=== PATIENT | female | born 1975 | race Caucasian/White ===

== ENCOUNTER 2020-04-10 15:14 | Outpatient (CLI) | payer OTHER, SELFPAY ==
[2020-04-19 04:52] LABS: Quantiferon TB Plus, 1T NEGATIVE
[2020-04-19 04:53] LABS: NIL 0.02; TB1-NIL 0.01
[2020-04-19 04:59] LABS: TB2-NIL 0.01
== END 2020-04-10 15:15 | disposition home or self-care (01) ==
LOC: CHSLAB 15:17
PROVIDERS: PCP Family Medicine; Visit Provider Family Medicine
DX: Z11.1 Encounter for screening for respiratory tuberculosis (principal)
CPT/HCPCS: 36415; 86480

== ENCOUNTER 2020-09-12 12:39 | Outpatient (CLI) | payer BC, SELFPAY ==
--- NOTE | ~2020-09-12 | MM_ITS ---
EXAMINATION: MM scrn carissa implant BI w briseyda HISTORY: Screening mammogram TECHNIQUE: Craniocaudal and mediolateral oblique 3-D tomosynthesis images with implant displacement a nd synthetic 2-D images were generated. Craniocaudal and mediolateral oblique views of the breasts wi thout implant displacement were obtained using full field digital mammography. CAD analysis was submi tted and interpreted. COMPARISON: 02/28/2018 right diagnostic digital mammogram and right breast ultrasound examination 02/09/2018 bilateral digital screening mammogram BREAST PARENCHYMAL COMPOSITION: The breasts are extremely dense, which lowers the sensitivity of mamm ography. FINDINGS: Status post bilateral augmentation mammoplasty. There is no evidence of suspicious mass, ca lcification, or architectural distortion to suggest malignancy in either breast. There has been no del castillo spicious interval change. IMPRESSION: 1. No mammographic evidence of malignancy. 2. Recommend routine screening mammography in one year. BI-RADS Category 1: Negative Reviewed, dictated and finalized at location A. CHECKER
== END 2020-09-12 12:40 | disposition home or self-care (01) ==
LOC: CHSIMG 12:41
PROVIDERS: PCP Family Medicine; Visit Provider Student in an Organized Health Care Education/Training Program
DX: Z12.31 Encounter for screening mammogram for malignant neoplasm of breast (principal)
CPT/HCPCS: 77063; 77067

== ENCOUNTER → 2020-10-07 04:17 | Outpatient (CLI) | payer BC, SELFPAY ==
[2020-10-07 19:04] LABS: SARS-CoV-2 RNA PCR Negative
== END ==
PROVIDERS: PCP Family Medicine; Visit Provider Student in an Organized Health Care Education/Training Program
DX: Z01.812 Encounter for preprocedural laboratory examination (principal); Z20.822 Contact with and (suspected) exposure to COVID-19
CPT/HCPCS: C9803; U0003; U0005

== ENCOUNTER 2020-10-10 01:20 | Day surgery (SDC) | payer BC, SELFPAY ==
[2020-09-25 14:29] VITALS: BMI 25.4
--- NOTE | 2020-10-09 09:23 | PM.IMHP ---
H&P: HPI History of Present Illness Date/Time: 10/09/20 09:23 The patient is a 45yo nulligravid woman with a history of JUAN CARLOS 2 who presents for a scheduled LEEP. Patient had a routine pap smear in 08/2020 that showed LGSIL. A colposcopy was performed in 09/2020 and cervical biopsy confirmed JUAN CARLOS 2. Discussion had with patient regarding management options and decision was made proceed with LEEP procedure. Patient reports feeling well today without complaints. Chief Complaint: high grade cervical dysplasia Review of Systems Review of Systems: All systems reviewed & are unremarkable except as noted in HPI and below Constitutional: Constitutional: Reports as per HPI, Reports no additional constitutional complaints, Denies chills, Denies fever(s), Denies headache(s) and Denies night sweats Eyes: Eyes: Reports as per HPI and Reports no additional eye complaints ENT: Reports system reviewed and no additional complaints, except as documented, Reports as per HPI, Reports Normal hearing present and Denies headache(s) Cardiovascular: Cardiovascular: Reports as per HPI, Reports no additional cardiovascular complaints, Denies chest pain and Denies dyspnea Respiratory: Respiratory: Reports as per HPI, Reports no additional respiratory complaints, Denies cough and Denies dyspnea Gastrointestinal: Gastrointestinal: Reports as per HPI, Reports no additional gastrointestinal complaints, Denies abdominal pain, Denies change in bowel habits, Denies change in stool character, Denies nausea and Denies vomiting Genitourinary: Genitourinary: Reports no additional female genitourinary complaints, Reports as per HPI, Denies abnormal vaginal bleeding, Denies genital lesions, Denies hot flashes, Denies dyspareunia, Denies pelvic pain, Denies sexual dysfunction, Denies urinary incontinence, Denies vaginal discharge, Denies vaginal dryness and Denies vaginal odor Musculoskeletal: Musculoskeletal: Reports no additional musculoskeletal complaints and Reports as per HPI Integumentary/Breasts: Skin/Breast: Reports system reviewed and no additional complaints, except as docu, Reports as per HPI, Denies breast pain and Denies nipple discharge Neurologic: Reports system reviewed and no additional complaints, except as documented, Reports as per HPI, Reports Normal hearing present and Denies headache(s) Psychiatric: Psychiatric: Reports no additional psychiatric complaints, Reports as per HPI, Denies anxiety and Denies depression Endocrine: Endocrine: Reports no additional endocrine complaints and Reports as per HPI Hematologic/Lymphatic: Hematologic/Lymphatic: Reports no additional hematologic/lymphatic complaints and Reports as per HPI Allergic/Immunologic: Allergic/Immunologic: Reports no additional allergic/immunologic complaints and Reports as per HPI PMFSH Past Medical History Medical History Depression with anxiety HGSIL (high grade squamous intraepithelial dysplasia) LGSIL (low grade squamous intraepithelial dysplasia) Surgical History Surgical History History of breast augmentation Previous section x 3 Family History Family History Sibling Family history of cardiovascular disease Mother Cerebrovascular accident Social History Social History Smoking status: Never smoker Second hand tobacco smoke exposure: No Alcohol intake: current Drinks per week: 2 Substance use: never Substance use type: does not use Spiritual care concerns: No Meds Home Medications and Allergies Home Medications Medication Instructions Recorded Confirmed Type bupropion HCl 300 mg 24 hr tablet, 300 mg PO DAILY 08/07/19 09/25/20 History extended release spironolactone 100 mg tablet 100 mg PO DAILY 08/07/19 09/25/20 History multivitamin 1 tablet
[2020-10-10 08:42] VITALS: BP 115/82; PULSE 81; RESP 16; TEMP 36.8; O2SAT 100
[2020-10-10] MEDS: ACETAMINOPHEN 500 MG TABLET 1000 MG PO (08:53)
--- NOTE | 2020-10-10 08:53 | WPDANESEPPF ---
Anes - Initial Pre Proc Eval Procedure: Operation Date: 10/10/20 10:30 Proposed Procedures p Loop Electrical Excision Procedure - Fernanda Whittington MD Date/Time: 10/10/20 08:53 Surgeon: Fernanda Whittington MD Pre Op Diagnosis: JUAN CARLOS II Patient Data Age: 45 Gender: F Height: 5 ft 6 in Weight: 71.6 kg Allergies Allergy/AdvReac Type Severity Reaction Status Date / Time cephalexin Allergy Unknown Hives Verified 10/10/20 08:50 Home Medications Medication Instructions Recorded Confirmed Type bupropion HCl 300 mg 24 hr tablet, 450 mg PO DAILY 08/07/19 10/10/20 History extended release spironolactone 100 mg tablet 100 mg PO DAILY 08/07/19 10/10/20 History multivitamin 1 tablet PO DAILY 08/29/20 10/10/20 History omega-3 fatty acids 1,000 mg 1,000 mg PO DAILY 08/29/20 10/10/20 History capsule vitamin B complex 1 tablet PO DAILY 08/29/20 10/10/20 History calcium carbonate 600 mg (1,500 1 cap PO DAILY 09/30/20 10/10/20 History mg)-vitamin D3 500 unit capsule Patient hx anesthesia problems: post op nausea/vomiting Family hx anesthesia problems: none PMFSH Past Medical History Medical History Depression with anxiety HGSIL (high grade squamous intraepithelial dysplasia) LGSIL (low grade squamous intraepithelial dysplasia) Surgical History Surgical History History of breast augmentation Previous section x 3 Family History Family History Sibling Family history of cardiovascular disease Mother Cerebrovascular accident Social History Social History Smoking status: Never smoker Second hand tobacco smoke exposure: No Alcohol intake: current Drinks per week: 2 Substance use: never Substance use type: does not use Living arrangements: alone Spiritual care concerns: No Anes - Eval Final PreProcedure Day of Procedure 10/10/20 08:53 Patient weight: normal Heart: regular rate and rhythm Lungs: clear to auscultation Airway: Mallampati scale class II Neurological: alert and oriented Last oral intake: >/= 8 hours ASA classification: II Emergent: no Anesthetic plan: proceed Anesthesia type and monitoring: general GIVS and standard monitoring Informed Consent: The patient's anesthetic plan and its attendant risks and benefits were discussed with the patient/family/POA. Questions were solicited and answers provided to the satisfaction of the patient/family/POA.
[2020-10-10] MEDS: LACTATED RINGERS 1,000 ML 30 ML IV CONT (09:06)
--- NOTE | 2020-10-10 09:08 | WPDHPUPDATE1 ---
History and Physical Update Update Date/Time: 10/10/20 09:08 History and Physical has been reviewed, including an updated exam of the patient. There are NO changes in the patient's condition. Risks, benefits, and alternatives have been discussed and questions answered. Patient agrees to proceed with procedure.
[2020-10-10] MEDS: LIDOCAINE HCL 1% LOCAL INJ 20 ML VIAL 50 ML INFILTRATE (09:50)
[2020-10-10 10:07] VITALS: BP 110/52; PULSE 82; RESP 14; O2SAT 100
--- NOTE | 2020-10-10 10:15 | PM.PROC ---
Procedure Note - Detailed Date of procedure: 10/10/20 Pre-op diagnosis: JUAN CARLOS II Post-op diagnosis: same Procedure performed: Loop electrosurgical excision procedure Description of procedure: The patient was taken to the operating room where she self-transferred to the operating room table. She was placed in dorsal supine position. Anesthesia was administered and found to be adequate. The patient was repositioned in dorsal lithotomy position and prepped and draped in the usual sterile fashion. A red rubber catheter was used to drain the bladder of 50cc concentrated urine. A coated bivalve speculum was inserted into the vagina and suction tubing was connected to the speculum. The cervix was well visualized. A paracervical block was performed with 1% lidocaine. 5 cc of lidocaine was administered on both sides for a total of 10 cc. Lugol's solution was applied across the entire surface of the cervix. A narrow area of non-uptake was noted circumferentially around the cervix. A medium-size loop was selected and connected to the electrical generator. This loop was used to excise a portion of the anterior surface of the cervix, including the cervical os. A single pass was made. The specimen was removed and set aside. The anterior portion of the cervix was tagged at 12:00 with a suture. An endocervical curettage was performed. Rollerball cautery was used to cauterize the entire excision site and margins of the excision bed. Excellent hemostasis was noted. The procedure was deemed complete. The vagina was dried and the speculum was removed. Specimen were prepared to be sent to pathology for analysis. The patient was cleansed and dried. She was taken out of the dorsal lithotomy position and awakened from anesthesia without difficulty. She was transported to the recovery room in stable condition. All sponge and instrument counts were correct at the end of the procedure. Anesthesia: MAC Surgeon: Fernanda Whittington MD Cooler Room Worker: None Estimated blood loss (mL): 5 IV fluids (mL): 500 Urine output (mL): 50 Drains: No Packing: No Pathology: yes (anterior portion of cervix, tagged at 12:00, endocervical curettage) Complications: No immediate complications Condition: stable Disposition: same day Findings: narrow area of uptake noted around cervical os
[2020-10-10 10:30] VITALS: BP 111/49; PULSE 79; RESP 16; O2SAT 100
[2020-10-10 10:57] VITALS: BP 103/73; PULSE 84; RESP 16; O2SAT 100
== END 2020-10-10 10:58 | disposition home or self-care (01) ==
PROVIDERS: PCP Family Medicine; Visit Provider Student in an Organized Health Care Education/Training Program
PROC: 0UBC7ZZ Excision of Cervix, Via Natural or Artificial Opening (ICD-10-PCS; CPT 57522; principal; 2020-10-10 10:30)
DX: N87.1 Moderate cervical dysplasia (principal); F41.8 Other specified anxiety disorders
CPT/HCPCS: 57522; 88305; A9270; C9803; J2250; J2405; J2704; J3010; J7120; U0003; U0005

== ENCOUNTER 2020-10-22 11:59 | Outpatient (CLI) | payer BC, SELFPAY ==
[2020-10-22 12:51] LABS: Hematocrit 25.4 % (37.0-47.0); Hemoglobin 8.5 g/dL (12.0-15.0); Mean Corpuscular HGB Conc 33.5 g/dl (32-36); Mean Corpuscular Hemoglobin 30.9 pg (26-34); Mean Corpuscular Volume 92.4 fl (80-100); Mean Platelet Volume 9.9 fl (7.4-10.4); Platelet Count Result 1059 k/mm3 (150-375); Red Blood Count 2.75 M/mm3 (4.2-5.4); Red Cell Distribution Width 18.9 % (11.5-14.5)
[2020-10-22 13:30] LABS: White Blood Count 197.5 K/mm3 (4.5-10.0)
[2020-10-22 14:22] LABS: Eosinophils Absolute Manual 19.75 K/mm3 (0.02-0.5); Eosinophils Percent Manual 10 % (0-4); Hypochromasia 1+ (NORMAL); Metamyelocytes Percent 12 %; Monocytes Absolute Manual 5.92 K/mm3 (0.1-0.90); Monocytes Percent Manual 3 % (3-9); Myelocytes Percent 12 %; Neutrophils Percent Manual 47 % (46-73); Platelet Estimate Increased (Adequate); Promyelocytes Percent 16 %; Total Cells Counted 100
== END 2020-10-22 12:00 | disposition home or self-care (01) ==
PROVIDERS: PCP Family Medicine; Visit Provider Student in an Organized Health Care Education/Training Program
DX: R42 Dizziness and giddiness (principal)
CPT/HCPCS: 36415; 85025; 85027; 88108

== ENCOUNTER 2020-11-04 08:13 | Outpatient (CLI) | payer BC, SELFPAY ==
[2020-11-04 08:57] LABS: Hematocrit 32.9 % (35.0-49.0); Hemoglobin 10.6 g/dL (12.0-15.0); Mean Corpuscular HGB Conc 32.2 g/dL (32.0-36.0); Mean Corpuscular Hemoglobin 29.5 pg (27.0-31.0); Mean Corpuscular Volume 91.6 fL (78.0-102.0); Mean Platelet Volume 9.8 fl (9.2-11.8); Platelet Count Result 1086 K/mm3 (150-420); Red Blood Count 3.59 M/mm3 (4.20-5.40); Red Cell Distribution Width 19.2 % (11.6-14.4)
[2020-11-04 09:13] LABS: Alanine Aminotransferase 20 U/L (14-59); Albumin Level 3.8 g/dL (3.4-5.0); Alkaline Phosphatase 59 U/L (46-116); Anion Gap 6 mmol/L (8-16); Aspartate Amino Transferase 16 U/L (15-37); Bilirubin,Total 0.6 mg/dL (0.00-1.00); Blood Urea Nitrogen 22 mg/dL (7-18); Calcium 9.5 mg/dL (8.5-10.1); Carbon Dioxide 31 mmol/L (21-32); Chloride 100 mmol/L (98-108); Estimated Glomerular Filt Rate 55; Glucose 89 mg/dL (70-99); Osmolality Calculated 286 mOsm/kg (285-295); Potassium 4.7 mmol/L (3.5-5.1); Sodium 137 mmol/L (136-145); Total Protein 7.1 g/dL (6.4-8.2)
[2020-11-04 09:17] LABS: White Blood Count 99.2 K/mm3 (4.8-10.8)
[2020-11-04 09:34] LABS: Band Neutrophils Percent 9 % (0-6); Eosinophils Absolute Manual 6.94 K/mm3 (0.02-0.5); Eosinophils Percent Manual 7 % (1-6); Lymphocytes Absolute Manual 10.91 K/mm3 (1.1-4.5); Lymphocytes Percent Manual 11 % (18-44); Monocytes Absolute Manual 4.96 K/mm3 (0.1-0.90); Monocytes Percent Manual 5 % (3-9); Neutrophils Absolute Manual 65.47 K/mm3 (1.7-7.2); Neutrophils Percent Manual 57 % (46-73); Total Cells Counted 100
[2020-11-04 09:35] LABS: Basophils Percent Manual 0 % (0-1); Metamyelocytes Percent 9 %; Myelocytes Percent 3 %; Nucleated Red Blood Cells 3 %; Platelet Estimate Increased (Adequate)
== END 2020-11-04 08:14 | disposition home or self-care (01) ==
LOC: CHSLAB 08:17
PROVIDERS: PCP Family Medicine
DX: D72.829 Elevated white blood cell count, unspecified (principal)
CPT/HCPCS: 36415; 80053; 85025

== ENCOUNTER 2020-11-11 15:07 | Outpatient (CLI) | payer BC, SELFPAY ==
--- NOTE | 2020-11-11 15:21 | ECG_ITS ---
Measurements Intervals [place] Rate: 72 P: 76 PA: 137 QRS: 81 QRSD: 82 T: 65 QT: 385 QTc: 422 Interpretive Statements SINUS RHYTHM POSSIBLE LEFT ATRIAL ENLARGEMENT INCOMPLETE RIGHT BUNDLE BRANCH BLOCK BORDERLINE ECG Electronically Signed On 11-11-2020 17:56:58 CDT by Niall Hutchinson D.O.
== END 2020-11-11 15:08 | disposition home or self-care (01) ==
LOC: CHSCARD 15:12
PROVIDERS: PCP Family Medicine
DX: C92.10 Chronic myeloid leukemia, BCR/ABL-positive, not having achieved remission (principal)
CPT/HCPCS: 93005

== ENCOUNTER 2020-11-24 12:51 | Outpatient (CLI) | payer BC, SELFPAY ==
[2020-11-24 13:03] LABS: Basophils Absolute Auto 0.11 K/mm3 (0.00-0.10); Basophils Percent Auto 2.7 % (0.0-1.0); Eosinophils Absolute Auto 0.09 K/mm3 (0.02-0.50); Eosinophils Percent Auto 2.2 % (1.0-6.0); Hematocrit 35.1 % (35.0-49.0); Hemoglobin 11.6 g/dL (12.0-15.0); Immature Granulocyte Absolute 0.03 K/mm3 (0.00-0.00); Immature Granulocyte Percent A 0.7 % (0.0-0.0); Lymphocytes Absolute Auto 1.78 K/mm3 (1.10-4.50); Lymphocytes Percent Auto 43.8 % (18.0-42.0); Mean Corpuscular Hemoglobin 29.7 pg (27.0-31.0); Mean Corpuscular Volume 89.8 fL (78.0-102.0); Mean Platelet Volume 10.2 fl (9.2-11.8); Monocytes Absolute Auto 0.18 K/mm3 (0.10-0.90); Monocytes Percent Auto 4.4 % (2.0-11.0); Neutrophils Absolute Auto 1.9 K/mm3 (1.7-7.2); Neutrophils Percent Auto 46.2 % (50.0-70.0); Platelet Count Result 244 K/mm3 (150-420); Red Blood Count 3.91 M/mm3 (4.20-5.40); Red Cell Distribution Width 18.2 % (11.6-14.4); White Blood Count 4.1 K/mm3 (4.8-10.8)
[2020-11-24 14:14] LABS: Alanine Aminotransferase 27 U/L (14-59); Albumin Level 4.4 g/dL (3.4-5.0); Alkaline Phosphatase 53 U/L (46-116); Anion Gap 9 mmol/L (8-16); Aspartate Amino Transferase 23 U/L (15-37); Bilirubin,Total 1.4 mg/dL (0.00-1.00); Blood Urea Nitrogen 11 mg/dL (7-18); Calcium 9.1 mg/dL (8.5-10.1); Carbon Dioxide 29 mmol/L (21-32); Chloride 100 mmol/L (98-108); Estimated Glomerular Filt Rate 49; Glucose 89 mg/dL (70-99); Lactate Dehydrogenase 187 U/L (81-234); Osmolality Calculated 284 mOsm/kg (285-295); Potassium 4.1 mmol/L (3.5-5.1); Sodium 138 mmol/L (136-145); Total Protein 6.9 g/dL (6.4-8.2); Uric Acid 2.4 mg/dL (2.6-6.0)
== END 2020-11-24 12:52 | disposition home or self-care (01) ==
PROVIDERS: PCP Family Medicine
DX: C92.10 Chronic myeloid leukemia, BCR/ABL-positive, not having achieved remission (principal)
CPT/HCPCS: 36415; 80053; 83615; 84550; 85025

== ENCOUNTER 2021-02-21 12:36 | Outpatient (CLI) | payer BC, SELFPAY ==
[2021-02-21 12:50] LABS: Hemoglobin 13.2 g/dL (12.0-15.0); Mean Corpuscular HGB Conc 33.8 g/dL (32.0-36.0); Mean Corpuscular Hemoglobin 30.1 pg (27.0-31.0); Mean Platelet Volume 7.9 fl (9.2-11.8); Platelet Count Result 131 K/mm3 (150-420); Red Blood Count 4.38 M/mm3 (4.20-5.40); Red Cell Distribution Width 17.2 % (11.6-14.4); White Blood Count 4.3 K/mm3 (4.8-10.8)
[2021-02-21 13:10] LABS: Band Neutrophils Percent 0 % (0-6); Eosinophils Absolute Manual 0.04 K/mm3 (0.02-0.5); Eosinophils Percent Manual 1 % (1-6); Lymphocytes Absolute Manual 2.66 K/mm3 (1.1-4.5); Lymphocytes Percent Manual 62 % (18-44); Monocytes Absolute Manual 0.21 K/mm3 (0.1-0.90); Monocytes Percent Manual 5 % (3-9); Neutrophils Absolute Manual 1.37 K/mm3 (1.7-7.2); Neutrophils Percent Manual 32 % (46-73); Platelet Estimate Adequate (Adequate); Total Cells Counted 100
[2021-02-21 13:29] LABS: Alanine Aminotransferase 39 U/L (14-59); Albumin Level 4.2 g/dL (3.4-5.0); Alkaline Phosphatase 40 U/L (46-116); Anion Gap 11 mmol/L (8-16); Aspartate Amino Transferase 21 U/L (15-37); Bilirubin,Total 1.8 mg/dL (0.00-1.00); Blood Urea Nitrogen 15 mg/dL (7-18); Calcium 8.6 mg/dL (8.5-10.1); Carbon Dioxide 28 mmol/L (21-32); Chloride 103 mmol/L (98-108); Estimated Glomerular Filt Rate 50; Glucose 97 mg/dL (70-99); Lactate Dehydrogenase 141 U/L (81-234); Osmolality Calculated 294 mOsm/kg (285-295); Potassium 4.1 mmol/L (3.5-5.1); Sodium 142 mmol/L (136-145); Total Protein 6.8 g/dL (6.4-8.2); Uric Acid 3.2 mg/dL (2.6-6.0)
== END 2021-02-21 12:37 | disposition home or self-care (01) ==
LOC: CHSLAB 12:40
PROVIDERS: PCP Hospitalist
DX: C92.10 Chronic myeloid leukemia, BCR/ABL-positive, not having achieved remission (principal)
CPT/HCPCS: 36415; 80053; 83615; 84550; 85025

== ENCOUNTER 2021-04-01 14:10 | Outpatient (CLI) | payer BC, SELFPAY ==
--- NOTE | 2021-04-01 14:27 | ECG_ITS ---
Measurements Intervals [place] Rate: 79 P: 76 OR: 137 QRS: 84 QRSD: 85 T: 67 QT: 378 QTc: 435 Interpretive Statements SINUS RHYTHM INCOMPLETE RIGHT BUNDLE BRANCH BLOCK BORDERLINE ECG Electronically Signed On 04-01-2021 15:05:40 CDT by Niall Hutchinson D.O.
== END 2021-04-01 14:11 | disposition home or self-care (01) ==
LOC: CHSCARD 14:14
DX: C92.10 Chronic myeloid leukemia, BCR/ABL-positive, not having achieved remission (principal)
CPT/HCPCS: 93005

== ENCOUNTER 2021-04-14 13:19 | Outpatient (CLI) | payer BC, SELFPAY ==
--- NOTE | 2021-04-14 13:30 | ECG_ITS ---
Measurements Intervals [place] Rate: 62 P: 70 ND: 136 QRS: 86 QRSD: 82 T: 74 QT: 399 QTc: 408 Interpretive Statements SINUS RHYTHM INCOMPLETE RIGHT BUNDLE BRANCH BLOCK BORDERLINE ECG Electronically Signed On 04-14-2021 13:35:21 CDT by Niall Hutchinson D.O.
== END 2021-04-14 13:20 | disposition home or self-care (01) ==
LOC: CHSCARD 13:22
PROVIDERS: PCP Hospitalist
DX: C92.10 Chronic myeloid leukemia, BCR/ABL-positive, not having achieved remission (principal)
CPT/HCPCS: 93005

== ENCOUNTER 2021-05-05 13:23 | Outpatient (CLI) | payer BC, SELFPAY ==
[2021-05-05 13:37] LABS: Hematocrit 39.1 % (35.0-49.0); Hemoglobin 13.9 g/dL (12.0-15.0); Mean Corpuscular HGB Conc 35.5 g/dL (32.0-36.0); Mean Corpuscular Hemoglobin 34.2 pg (27.0-31.0); Mean Corpuscular Volume 96.1 fL (78.0-102.0); Mean Platelet Volume 8.2 fl (9.2-11.8); Platelet Count Result 128 K/mm3 (150-420); Red Blood Count 4.07 M/mm3 (4.20-5.40); White Blood Count 3.8 K/mm3 (4.8-10.8)
[2021-05-05 14:22] LABS: Alanine Aminotransferase 91 U/L (14-59); Alkaline Phosphatase 40 U/L (46-116); Anion Gap 8 mmol/L (8-16); Aspartate Amino Transferase 36 U/L (15-37); Bilirubin,Total 1.8 mg/dL (0.00-1.00); Blood Urea Nitrogen 13 mg/dL (7-18); Calcium 8.6 mg/dL (8.5-10.1); Carbon Dioxide 30 mmol/L (21-32); Chloride 103 mmol/L (98-108); Estimated Glomerular Filt Rate 58; Glucose 63 mg/dL (70-99); Lactate Dehydrogenase 138 U/L (81-234); Osmolality Calculated 290 mOsm/kg (285-295); Potassium 3.7 mmol/L (3.5-5.1); Sodium 141 mmol/L (136-145); Total Protein 6.6 g/dL (6.4-8.2); Uric Acid 3.4 mg/dL (2.6-6.0)
[2021-05-05 15:17] LABS: Band Neutrophils Percent 0 % (0-6); Basophils Absolute Manual 0.07 K/mm3 (0-0.1); Basophils Percent Manual 2 % (0-1); Eosinophils Absolute Manual 0.07 K/mm3 (0.02-0.5); Eosinophils Percent Manual 2 % (1-6); Lymphocytes Absolute Manual 2.05 K/mm3 (1.1-4.5); Lymphocytes Percent Manual 54 % (18-44); Monocytes Absolute Manual 0.03 K/mm3 (0.1-0.90); Monocytes Percent Manual 1 % (3-9); Neutrophils Absolute Manual 1.55 K/mm3 (1.7-7.2); Neutrophils Percent Manual 41 % (46-73); Platelet Estimate Adequate (Adequate); Total Cells Counted 100
== END 2021-05-05 13:24 | disposition home or self-care (01) ==
LOC: CHSLAB 13:27
PROVIDERS: PCP Hospitalist
DX: E80.6 Other disorders of bilirubin metabolism (principal); C92.10 Chronic myeloid leukemia, BCR/ABL-positive, not having achieved remission
CPT/HCPCS: 36415; 80053; 83615; 84550; 85025

== ENCOUNTER 2021-05-19 12:15 | Outpatient (CLI) | payer BC, SELFPAY ==
[2021-05-19 12:31] LABS: Basophils Absolute Auto 0.07 K/mm3 (0.00-0.10); Basophils Percent Auto 1.6 % (0.0-1.0); Eosinophils Absolute Auto 0.02 K/mm3 (0.02-0.50); Eosinophils Percent Auto 0.5 % (1.0-6.0); Hematocrit 38.6 % (35.0-49.0); Hemoglobin 13.9 g/dL (12.0-15.0); Immature Granulocyte Absolute 0.01 K/mm3 (0.00-0.00); Immature Granulocyte Percent A 0.2 % (0.0-0.0); Lymphocytes Absolute Auto 2.44 K/mm3 (1.10-4.50); Lymphocytes Percent Auto 55.3 % (18.0-42.0); Mean Corpuscular Hemoglobin 34.6 pg (27.0-31.0); Mean Platelet Volume 8.2 fl (9.2-11.8); Monocytes Absolute Auto 0.21 K/mm3 (0.10-0.90); Monocytes Percent Auto 4.8 % (2.0-11.0); Neutrophils Absolute Auto 1.7 K/mm3 (1.7-7.2); Neutrophils Percent Auto 37.6 % (50.0-70.0); Platelet Count Result 214 K/mm3 (150-420); Red Blood Count 4.02 M/mm3 (4.20-5.40); Red Cell Distribution Width 12.8 % (11.6-14.4); White Blood Count 4.4 K/mm3 (4.8-10.8)
[2021-05-19 13:03] LABS: Alanine Aminotransferase 30 U/L (14-59); Albumin Level 4.3 g/dL (3.4-5.0); Alkaline Phosphatase 41 U/L (46-116); Anion Gap 7 mmol/L (8-16); Aspartate Amino Transferase 17 U/L (15-37); Bilirubin,Total 3.3 mg/dL (0.00-1.00); Blood Urea Nitrogen 13 mg/dL (7-18); Carbon Dioxide 29 mmol/L (21-32); Chloride 101 mmol/L (98-108); Estimated Glomerular Filt Rate > 60; Glucose 85 mg/dL (70-99); Osmolality Calculated 283 mOsm/kg (285-295); Potassium 4.2 mmol/L (3.5-5.1); Sodium 137 mmol/L (136-145); Total Protein 6.9 g/dL (6.4-8.2)
== END 2021-05-19 12:16 | disposition home or self-care (01) ==
LOC: CHSLAB 12:19
PROVIDERS: PCP Hospitalist
DX: C92.10 Chronic myeloid leukemia, BCR/ABL-positive, not having achieved remission (principal)
CPT/HCPCS: 36415; 80053; 85025

== ENCOUNTER 2021-08-15 10:48 | Outpatient (CLI) | payer BC, SELFPAY ==
[2021-08-15 11:06] LABS: Hematocrit 25.8 % (35.0-49.0); Hemoglobin 9.2 g/dL (12.0-15.0); Immature Platelet Fraction Pct 2.4 % (1.0-7.0); Mean Corpuscular HGB Conc 35.7 g/dL (32.0-36.0); Mean Corpuscular Hemoglobin 35.7 pg (27.0-31.0); Mean Platelet Volume 11.7 fl (9.2-11.8); Platelet Count Result 35 K/mm3 (150-420); Red Blood Count 2.58 M/mm3 (4.20-5.40); Red Cell Distribution Width 16.8 % (11.6-14.4); White Blood Count 2.8 K/mm3 (4.8-10.8)
[2021-08-15 11:24] LABS: Band Neutrophils Percent 0 % (0-6); Basophils Percent Manual 0 % (0-1); Eosinophils Absolute Manual 0.02 K/mm3 (0.02-0.5); Eosinophils Percent Manual 1 % (1-6); Lymphocytes Absolute Manual 2.29 K/mm3 (1.1-4.5); Lymphocytes Percent Manual 82 % (18-44); Monocytes Absolute Manual 0.05 K/mm3 (0.1-0.90); Monocytes Percent Manual 2 % (3-9); Neutrophils Absolute Manual 0.42 K/mm3 (1.7-7.2); Neutrophils Percent Manual 15 % (46-73); Platelet Estimate Decreased (Adequate); Total Cells Counted 100
== END 2021-08-15 10:49 | disposition home or self-care (01) ==
PROVIDERS: PCP Hospitalist
DX: C92.10 Chronic myeloid leukemia, BCR/ABL-positive, not having achieved remission (principal)
CPT/HCPCS: 36415; 85025; 85055

== ENCOUNTER 2021-09-29 14:32 | Outpatient (CLI) | payer BC, SELFPAY ==
[2021-09-29 14:46] LABS: Basophils Absolute Auto 0.01 K/mm3 (0.00-0.10); Basophils Percent Auto 0.2 % (0.0-1.0); Eosinophils Absolute Auto 0.06 K/mm3 (0.02-0.50); Eosinophils Percent Auto 1.4 % (1.0-6.0); Hematocrit 31.5 % (35.0-49.0); Hemoglobin 10.9 g/dL (12.0-15.0); Immature Granulocyte Absolute 0.02 K/mm3 (0.00-0.00); Immature Granulocyte Percent A 0.5 % (0.0-0.0); Immature Platelet Fraction Pct 2.8 % (1.0-7.0); Lymphocytes Absolute Auto 1.89 K/mm3 (1.10-4.50); Lymphocytes Percent Auto 43.4 % (18.0-42.0); Mean Corpuscular HGB Conc 34.6 g/dL (32.0-36.0); Mean Corpuscular Hemoglobin 36.6 pg (27.0-31.0); Mean Corpuscular Volume 105.7 fL (78.0-102.0); Mean Platelet Volume 9.9 fl (9.2-11.8); Monocytes Absolute Auto 0.29 K/mm3 (0.10-0.90); Monocytes Percent Auto 6.7 % (2.0-11.0); Neutrophils Absolute Auto 2.1 K/mm3 (1.7-7.2); Neutrophils Percent Auto 47.8 % (50.0-70.0); Platelet Count Result 69 K/mm3 (150-420); Red Blood Count 2.98 M/mm3 (4.20-5.40); White Blood Count 4.4 K/mm3 (4.8-10.8)
== END 2021-09-29 14:33 | disposition home or self-care (01) ==
LOC: CHSLAB 14:35
PROVIDERS: PCP Family Medicine
DX: C92.10 Chronic myeloid leukemia, BCR/ABL-positive, not having achieved remission (principal)
CPT/HCPCS: 36415; 85025; 85055

== ENCOUNTER 2021-10-06 14:30 | Outpatient (RCR) | payer BC, SELFPAY ==
[2021-08-19 14:50] LABS: Hematocrit 24.9 % (35.0-49.0); Hemoglobin 9.3 g/dL (12.0-15.0); Immature Platelet Fraction Pct 2.5 % (1.0-7.0); Mean Corpuscular HGB Conc 37.3 g/dL (32.0-36.0); Mean Corpuscular Volume 101.6 fL (78.0-102.0); Mean Platelet Volume 9.8 fl (9.2-11.8); Platelet Count Result 32 K/mm3 (150-420); Red Blood Count 2.45 M/mm3 (4.20-5.40); Red Cell Distribution Width 17.8 % (11.6-14.4); White Blood Count 2.7 K/mm3 (4.8-10.8)
[2021-08-19 15:12] LABS: Band Neutrophils Percent 0 % (0-6); Basophils Percent Manual 0 % (0-1); Eosinophils Percent Manual 0 % (1-6); Lymphocytes Absolute Manual 2.34 K/mm3 (1.1-4.5); Lymphocytes Percent Manual 87 % (18-44); Monocytes Absolute Manual 0.08 K/mm3 (0.1-0.90); Monocytes Percent Manual 3 % (3-9); Neutrophils Absolute Manual 0.27 K/mm3 (1.7-7.2); Neutrophils Percent Manual 10 % (46-73); Platelet Estimate Decreased (Adequate); Total Cells Counted 100
[2021-08-31 15:45] LABS: Hematocrit 25.4 % (35.0-49.0); Hemoglobin 9.1 g/dL (12.0-15.0); Immature Platelet Fraction Pct 2.6 % (1.0-7.0); Mean Corpuscular HGB Conc 35.8 g/dL (32.0-36.0); Mean Corpuscular Hemoglobin 37.4 pg (27.0-31.0); Mean Corpuscular Volume 104.5 fL (78.0-102.0); Mean Platelet Volume 9.3 fl (9.2-11.8); Platelet Count Result 50 K/mm3 (150-420); Red Blood Count 2.43 M/mm3 (4.20-5.40); Red Cell Distribution Width 18.3 % (11.6-14.4); White Blood Count 3.8 K/mm3 (4.8-10.8)
[2021-08-31 16:33] LABS: Band Neutrophils Percent 0 % (0-6); Neutrophils Absolute Manual 0.87 K/mm3 (1.7-7.2); Neutrophils Percent Manual 23 % (46-73); Total Cells Counted 100
[2021-08-31 16:34] LABS: Basophils Percent Manual 0 % (0-1); Eosinophils Absolute Manual 0.07 K/mm3 (0.02-0.5); Eosinophils Percent Manual 2 % (1-6); Lymphocytes Absolute Manual 2.81 K/mm3 (1.1-4.5); Lymphocytes Percent Manual 74 % (18-44); Monocytes Absolute Manual 0.03 K/mm3 (0.1-0.90); Monocytes Percent Manual 1 % (3-9); Platelet Estimate Decreased (Adequate)
[2021-10-06 14:41] LABS: Basophils Absolute Auto 0.02 K/mm3 (0.00-0.10); Basophils Percent Auto 0.4 % (0.0-1.0); Eosinophils Absolute Auto 0.04 K/mm3 (0.02-0.50); Eosinophils Percent Auto 0.8 % (1.0-6.0); Hematocrit 31.8 % (35.0-49.0); Hemoglobin 10.9 g/dL (12.0-15.0); Immature Granulocyte Absolute 0.01 K/mm3 (0.00-0.00); Immature Granulocyte Percent A 0.2 % (0.0-0.0); Immature Platelet Fraction Pct 2.7 % (1.0-7.0); Lymphocytes Absolute Auto 2.35 K/mm3 (1.10-4.50); Lymphocytes Percent Auto 49.9 % (18.0-42.0); Mean Corpuscular HGB Conc 34.3 g/dL (32.0-36.0); Mean Corpuscular Hemoglobin 36.3 pg (27.0-31.0); Mean Platelet Volume 9.2 fl (9.2-11.8); Monocytes Absolute Auto 0.24 K/mm3 (0.10-0.90); Monocytes Percent Auto 5.1 % (2.0-11.0); Neutrophils Absolute Auto 2.1 K/mm3 (1.7-7.2); Neutrophils Percent Auto 43.6 % (50.0-70.0); Platelet Count Result 73 K/mm3 (150-420); White Blood Count 4.7 K/mm3 (4.8-10.8)
== END 2021-11-17 23:59 | disposition home or self-care (01) ==
LOC: CHSLAB 14:30
PROVIDERS: PCP Hospitalist
DX: C92.10 Chronic myeloid leukemia, BCR/ABL-positive, not having achieved remission (principal)
CPT/HCPCS: 36415; 85025; 85055

== ENCOUNTER 2021-12-29 14:07 | Outpatient (CLI) | payer BC, SELFPAY ==
--- NOTE | ~2021-12-29 | MM_ITS ---
EXAMINATION: MM scrn carissa implant BI w briseyda HISTORY: Screening mammogram TECHNIQUE: Craniocaudal and mediolateral oblique 3-D tomosynthesis images with implant displacement a nd synthetic 2-D images were generated. Craniocaudal and mediolateral oblique views of the breasts wi thout implant displacement were obtained using full field digital mammography. CAD analysis was submi tted and interpreted. COMPARISON: Comparison to multiple prior studies sequentially, with oldest reviewed study dated 03/2018. BREAST PARENCHYMAL COMPOSITION: The breasts are heterogeneously dense, which may obscure small masses . FINDINGS: There are bilateral subpectoral saline implants. There is no evidence of suspicious mass, c alcification, or architectural distortion to suggest malignancy in either breast. There has been no s uspicious interval change. IMPRESSION: 1. No mammographic evidence of malignancy. 2. Recommend routine screening mammography in one year. BI-RADS Category 1: Negative Reviewed, dictated and finalized at location A.
== END 2021-12-29 14:08 | disposition home or self-care (01) ==
LOC: CHSIMG 14:08
PROVIDERS: PCP Hospitalist; Visit Provider Student in an Organized Health Care Education/Training Program
DX: Z12.31 Encounter for screening mammogram for malignant neoplasm of breast (principal)
CPT/HCPCS: 77063; 77067

== ENCOUNTER 2023-07-06 12:06 | Emergency (ER) | payer BC, SELFPAY ==
[2023-07-06] VITALS (14 sets, daily range): BP systolic 113–129; BP diastolic 78–92; PULSE 85–93; RESP 12–20; TEMP 36.3–37.2; O2SAT 100
--- NOTE | 2023-07-06 12:27 | ED.GENADULT ---
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 No chest pain or shortness of breath Onset (ago): day(s) ( 7 days) Quality: aching Pain Consistency: constant Relieving factors: none Associated symptoms: denies other symptoms, nausea/vomiting and weakness Treatments prior to arrival: none Related Data Home Medications Medication Instructions Recorded Confirmed ponatinib 30 mg tablet (Iclusig) 30 mg PO DAILY 01/06/23 07/06/23 Allergies Allergy/AdvReac Type Severity Reaction Status Date / Time cephalexin Allergy Unknown Hives Verified 07/06/23 12:13 bosutinib [From Bosulif] Allergy Hives Verified 07/06/23 12:13 Review of Systems Review of Systems: All systems reviewed & are unremarkable except as noted in HPI and below Constitutional: Constitutional: Reports as per HPI, Reports no additional constitutional complaints, Reports body ache(s) and Reports weakness Eyes: Eyes: Reports as per HPI and Reports no additional eye complaints ENT: Reports system reviewed and no additional complaints, except as documented and Reports as per HPI Cardiovascular: Cardiovascular: Reports as per HPI and Reports no additional cardiovascular complaints Respiratory: Respiratory: Reports as per HPI and Reports no additional respiratory complaints Gastrointestinal: Gastrointestinal: Reports as per HPI, Reports no additional gastrointestinal complaints, Reports nausea and Reports vomiting Genitourinary: Genitourinary: Reports no additional female genitourinary complaints and Reports as per HPI Musculoskeletal: Musculoskeletal: Reports no additional musculoskeletal complaints, Reports as per HPI, Reports myalgias and Reports arthralgias Integumentary/Breasts: Skin/Breast: Reports system reviewed and no additional complaints, except as docu and Reports as per HPI Neurologic: Reports system reviewed and no additional complaints, except as documented and Reports as per HPI Psychiatric: Psychiatric: Reports no additional psychiatric complaints and Reports as per HPI Endocrine: Endocrine: Reports no additional endocrine complaints and Reports as per HPI Hematologic/Lymphatic: Hematologic/Lymphatic: Reports no additional hematologic/lymphatic complaints and Reports as per HPI Allergic/Immunologic: Allergic/Immunologic: Reports no additional allergic/immunologic complaints and Reports as per HPI PMFSH Past Medical History Medical History Abnormal Pap smear of cervix HGSIL, LGSIL CML (chronic myelocytic leukemia) Depression with anxiety HGSIL (high grade squamous intraepithelial dysplasia) LGSIL (low grade squamous intraepithelial dysplasia) Surgical History Surgical History History of breast augmentation History of endometrial ablation 2018 History of hysteroscopy History of loop electrical excision procedure (LEEP) 10/10/20 JUAN CARLOS II Previous section x 3 S/P endometrial ablation Family History Family History Sibling Family history of cardiovascular disease Mother Cerebrovascular accident Social History Social History Smoking status: Never smoker Second hand tobacco smoke exposure: No Alcohol intake: current Drinks per week: 2 Substance use: never Substance use type: does not use
--- NOTE | 2023-07-06 12:33 | ECG_ITS ---
Measurements Intervals [place] Rate: 84 P: 74 RI: 130 QRS: 81 QRSD: 78 T: 75 QT: 354 QTc: 420 Interpretive Statements SINUS RHYTHM NORMAL ECG COMPARED TO ECG 04/14/2021 13:34:56 NO SIGNIFICANT CHANGES Electronically Signed On 07-06-2023 13:03:44 BLEND TECHNICIAN by Niall Hutchinson D.O.
[2023-07-06 12:43] LABS: Basophils Absolute Auto 0.01 K/mm3 (0.00-0.10); Basophils Percent Auto 0.1 % (0.0-1.0); Eosinophils Absolute Auto 0.18 K/mm3 (0.02-0.50); Eosinophils Percent Auto 2.1 % (1.0-6.0); Hematocrit 35.6 % (35.0-49.0); Hemoglobin 11.3 g/dL (12.0-15.0); Immature Granulocyte Absolute 0.04 K/mm3 (0.00-0.00); Immature Granulocyte Percent A 0.5 % (0.0-0.0); Lymphocytes Percent Auto 8.1 % (18.0-42.0); Mean Corpuscular HGB Conc 31.7 g/dL (32.0-36.0); Mean Corpuscular Hemoglobin 26.2 pg (27.0-31.0); Mean Corpuscular Volume 82.4 fL (78.0-102.0); Monocytes Absolute Auto 0.28 K/mm3 (0.10-0.90); Monocytes Percent Auto 3.2 % (2.0-11.0); Neutrophils Absolute Auto 7.4 K/mm3 (1.7-7.2); Platelet Count Result 157 K/mm3 (150-420); Red Blood Count 4.32 M/mm3 (4.20-5.40); Red Cell Distribution Width 14.3 % (11.6-14.4); White Blood Count 8.6 K/mm3 (4.8-10.8)
[2023-07-06 12:43] LABS: Appearance Urine Clear (Clear); Bilirubin Urine Negative (Negative); Blood Urine Negative (Negative); Color Urine Light Yellow (Yellow); Glucose Urine UA Negative (Negative); Ketones Urine Negative (Negative); Leukocyte Esterase Ur Negative LEU/UL (Negative); Nitrate Urine Negative (Negative); Protein Urine Negative (Negative); Urobilinogen Urine 0.2 mg/dL (0.2-1.0)
[2023-07-06 12:49] LABS: Add Urine Microscopic? NO
[2023-07-06 13:00] LABS: INR 0.9; Partial Thromboplastin Time 26.2 SEC (23.90-30.70); Prothrombin Time 10.3 Seconds (9.50-12.10)
[2023-07-06 13:06] LABS: Lactic Acid Reflex 1.1 mmol/L (0.4-2.0)
[2023-07-06 13:09] LABS: Alanine Aminotransferase 22 U/L (14-59); Albumin Level 4.4 g/dL (3.4-5.0); Alkaline Phosphatase 39 U/L (46-116); Anion Gap 5 mmol/L (8-16); Aspartate Amino Transferase 11 U/L (15-37); Bilirubin,Total 0.8 mg/dL (0.00-1.00); Blood Urea Nitrogen 14 mg/dL (7-18); Calcium 8.5 mg/dL (8.5-10.1); Carbon Dioxide 31 mmol/L (21-32); Chloride 100 mmol/L (98-108); Estimated Glomerular Filt Rate 60; Glucose 99 mg/dL (70-99); Lipase 63 U/L (16-77); Osmolality Calculated 282 mOsm/kg (285-295); Potassium 4.2 mmol/L (3.5-5.1); Sodium 136 mmol/L (136-145); Thyroid Stimulating Hormone 1.24 uIU/mL (0.36-3.74); Total Protein 7.6 g/dL (6.4-8.2); Troponin I 4.8 ng/L (0.00-60.4)
[2023-07-06 13:30] LABS: CRP < 0.5 mg/dL (0.0-0.9)
[2023-07-06 13:40] LABS: Influenza A QL RT-PCR Negative (Negative); Influenza B QL RT-PCR Negative (Negative); RSV RNA, RT-PCR Negative (Negative); SARS-CoV-2 RNA PCR Negative (Negative)
== END 2023-07-06 13:59 | disposition home or self-care (01) ==
PROVIDERS: Emergency Provider Internal Medicine Critical Care Medicine
DX: B34.9 Viral infection, unspecified (principal); C92.10 Chronic myeloid leukemia, BCR/ABL-positive, not having achieved remission; Z20.822 Contact with and (suspected) exposure to COVID-19; Z79.899 Other long term (current) drug therapy
CPT/HCPCS: 36415; 80053; 81003; 83605; 83690; 84443; 84484; 85025; 85610; 85730; 86140; 87637; 93005; 99284

== ENCOUNTER 2025-01-11 10:08 | Outpatient (CLI) | payer OTHER, SELFPAY ==
--- OUTSIDE RECORDS SUMMARY | 2025-01-11 10:16 | XMS_ITS | Clinical Summary ---
Author Organization [facility] Address [facility] [place] [address] Care Team Providers Care Janitorial Maintenance Worker Name Role Phone None, Provider MD Primary Care Provider Unavaila ble Social History Tobacco Use Types Packs/Day Years Used Date Smoking Tobacco: Never Assessed Comments Unknown Sex and Gender Information Value Date Recorded Sex Assigned at Not on file Legal Sex Female 10:13 PM [employer] Gender Identity Not on file Sexual Orientation Not on file Plan of Treatment Health Maintenance Due Date Last Done Comments Cervical Cancer Screening Pa p Smear (Age 30 to 64) Every 3 Years 1977 Colorectal Cancer Screening Colonoscopy (10 Years) 1977 Annual Physical 02/19/1980 Hepatitis C 1995 DTaP, Tdap and Td Vaccines ( 1 - Tdap) 02/19/1996 Hepatitis B Vaccines (1 of 3 - 19+ 3-dose series) 02/19/1996 Cervical Cancer Screening Pa p with HPV Testing (Age 30 to 64) Every 5 Years 2007 Cervical Cancer Screening with HPV 2007 Mammogram Screening 2017 COVID-19 Vaccine (2023-2 5 season) 2024 Meningococcal B Vaccine Aged Out No l onger eligible based on patient's age to complete this topic Meningococcal Vaccine Aged Out No gianfranco flory eligible based on patient's age to complete this topic Pneumococcal Vaccine: Pediat rics (0 to 5 Years) and At-Risk Patients (6 to 49 Years) Aged Out No longer eligible b ased on patient's age to complete this topic RSV Immunizations Under 20 Months Aged Out No longer eligible based on patient's age to complete this topic Insurance [facility] Care Teams Janitorial Maintenance Worker Relationship Specialty Start Date End Date None, Provider, PCP - General 02/14/19
--- OUTSIDE RECORDS SUMMARY | 2025-01-11 10:16 | XMS_ITS | Continuity of Care Document ---
Author Organization [facility] Address [address] [place] [address] Phone Care Team Providers Care Business Management Associate Name Role Phone Tony Arizmendi DO Unavailable Unavailable Procedures Procedure Date IMMUNIZATION ADMIN SARSCOV2 VAC 100MCG/0.5ML IM COMMUNITY SERVICE Advance Directives Directive Yes / No Effective Date File Name No Information Encounters Encounter Description Practice Location Reason(s) For Visit Diagnoses Date Provider Providers Copied on Encounter [facility], [address] [place], [address], tel:[phone] *[facility] Covid-19 Injection Only (chief complaint) Encounter for immunization Ugo Jimenez. [address] [place], [address], . tel:[phone] Family History Family Member Type Diagnosis Age At Onset No Information Immunizations Vaccine Date Status Comments COVID-19 administered Source: [facility] unization Record COVID-19 administered Source: Public Agency COVID-19 administered Source: Public Agency Payers Payer name Insurance type Covered green party ID Authoriza tion(s) No Information Social History Type Description Quantity Date Captured Comments Alcohol Use Details Unknown Caffeine Use Details Unknown Tobacco Use Status No Information Smoking Status No Information Sex Female Chief Complaint And Reason For Visit From encounter dated '05/13/2021 11:33'. Covid-19 Injection Only (chief complaint). Description: - 3rd Covid-19 Booster Reason For Referral Reason For Referral No Information History Of Present Illness Encounter Date Complaint History Of Prese nt Illness Covid-19 Injection Only - 3rd Co vid-19 Booster Functional Status Date Functional Assessmen t No Information Instructions Date Instruction Additional Infor mation No Information Assessments Type Assessment Date assessment Encounter for immunization Patient Care Teams Name Effective Dates (start - stop) Status Members No Information
--- OUTSIDE RECORDS SUMMARY | 2025-01-11 10:16 | XMS_ITS | Encounter Summary ---
Author Organization [facility] Address [address] [place] [address] Phone Care Team Providers Care Foreign Language Professor Name Role Phone Tyron Roca MD Unavailable [phone] Morgan Palacio MD Unavailable [phone] Itz Love MD Unavailable [phone] Karlos Lam MD Primary Care Provider [phone] Francis Cornell MD Primary Care Provider [phone] Francis Cornell MD Primary Care Provider [phone] Rosalie Rcio NP Primary Care Provider [phone] Encounter Details Date Type Department Care Team (Latest Contact Info) Description 04/14/2021 Orders Only [facility] Scanning, Provider Social History Tobacco Use Types Packs/Day Years Used Date Smoking Tobacco: Never Smokeless Tobacco: Never Alcohol Use Standard Drinks/Week Comments Yes 2 (1 standard drink = 0.6 oz pur e alcohol) AUDIT-C Answer Date Recorded Q1: How often do you have a drink containing alc ohol? 2-3 times a week 03/26/2021 Q2: How many drinks containi ng alcohol do you have on a typical day when you are drinking? 3 or 4 03/26/2021 Q3: How often do you have si x or more drinks on one occasion? Never 03/26/2021 PHQ-2 Answer Date Recorded PHQ-2 Total Score (If total score is 3 or more points, staff should administer the PHQ-9) 1 03/26/2021 Comments Unknown Sex and Gender Information Value Date Recorded Sex Assigned at Not on file Legal Sex Female 5:11 PM CDT Gender Identity Female 01/19/2021 8:35 AM CDT Sexual Orientation Straight 01/19/2021 8: 35 AM CDT documented as of this encounter Plan of Treatment Scheduled Procedures Name Priority Associated Diagnoses Date/Ti me COLONOSCOPY Open Access Colon cancer screening documented as of this encounter Procedures Procedure Name Priority Date/Time Associated Diagnosis Comments CARDIOLOGY DOCUMENT SCAN 04/14/2021 documented in this encounter Results * SCAN - CARDIOLOGY (04/14/2021) Anatomical Region Laterality Modality Other us Provider Scanning CV CARDIAC SERVICES PROCEDURES Final Result documented in this encounter Visit Diagnoses Not on filedocumented in this encounter Additional Health Concerns Infection Onset Date Last Indicated Resolved Time COVID: Suspected 03/23/2022 03/23/2022 03/23/2022 11:00 AM CDT COVID: Suspected 09/27/2022 09/27/2022 09/27/2022 11:50 AM CDT documented as of this encounter Care Teams Foreign Language Professor Relationship Specialty Start Date End Date Karlos Lam MD [address] [place] [id number] PCP - General Family Medicine 01/22/21 11/10/22 Francis Cornell MD [address] [place] [address] PCP - General Family Medicine 11/11/22 05/01/23 Francis Cornell MD [address] [place] [id number] PCP - General Family Medicine 05/02/23 09/27/23 Rosalie Rico NP [address] [address] PCP - General Family Medicine 09/28/23 Tyron Roca MD Consulting Physician Medical Oncology 10/30/20 Morgan Palacio MD [address] [id number] Referring Physician Hematology 11/11/20 09/27/23 Itz Love MD [address] [place] [address] Referring Physician Family Practice 11/11/20 09/27/23 documented as of this encounter
--- OUTSIDE RECORDS SUMMARY | 2025-01-11 10:16 | XMS_ITS | Referral Summary ---
Author Organization [facility] Address [address] [facility] [address] [place] [address] Phone Care Team Providers Care [employer] Administrator Name Role Phone Tyron Roca MD Unavailable Kim Chaparro NP Primary Care Provider [phone] Encounters Date Type Department Care Team Description 01/03/2025 Telephone [facility] Bone Marrow Transplant [facility] [address] [phone] Tyron Roca MD 01/01/2025 Orders Only [facility] Bone Marrow Transplant [facility] [address] [place] [id number] Elma Su NP CML (chronic myelocytic leukemia) (HCC) (Primary Dx) 01/01/2025 Telephone [facility] Bone Marrow Transplant [facility] [address] [phone] Karen Lopez, GRANT 12/26/2024 Telephone [facility] Bone Marrow Transplant [facility] [address] [phone] Karen Lopez, GRANT 10/31/2024 11:36 AM CDT - 10/31/2024 2:44 PM CDT Hospital Encounter [facility] ([facility]) [address] [place] [id number] Chronic iron deficiency anemia (Primary Dx); CML (chronic myelocytic leukemia) (HCC) Discharge Disposition: Discharge to home or self care 10/22/2024 2:40 PM CDT - 10/22/2024 11:59 PM CDT Hospital Encounter [facility] [address] [place] [address] CML (chronic myelocytic leukemia) (HCC) Discharge Disposition: Discharge to home or self care 10/22/2024 2:30 PM CDT Lab [facility] Outpatient Lab at [address] [phone] Chronic iron deficiency anemia (Primary Dx) 10/22/2024 8:45 AM CDT Lab [facility] - Lab Collection [address] [place] [address] Floor [address] [place] [address] CML (chronic myelocytic leukemia) (HCC) 10/22/2024 8:30 AM CDT Lab [facility] Oncology Lab [address] [place] [address] Floor 6 [place] [address] CML (chronic myelocytic leukemia) (HCC) 10/22/2024 9:30 AM CDT Office Visit [facility] Bone Marrow Transplant [address] [place] [address] [address] [place] [address] Alice Pacheco NP CML (chronic myelocytic leukemia) (HCC) (Primary Dx) from Last 3 Months Allergies Active Allergy Reactions Criticality Noted Date Comments Bosutinib Hives Medium 06/22/2021 Cephalexin Hives Medium 10/27/2020 Medications loratadine (CLARITIN) 10 mg tabletIndicati ons:CML (chronic myelocytic leukemia) (HCC) Take 1 tablet (10 mg total) by mouth daily prn Active hydrocortisone 2.5 % cream Apply topically 2 (two) times a day as needed for irritation or rash 60 g 2 11/12/19 23 Active Additional Information Patient not taking.Reported on 09/28/2023 buPROPion XL (WELLBUTRIN XL) 300 mg 24 hr tablet Take 1 tablet (300 mg total) by mouth daily 90 tablet 1 01/23/20 24 Active aspirin 81 mg enteric coated tabletIndicati ons:CML (chronic myelocytic leukemia) (HCC) Take 1 tablet (81 mg total) by mouth daily 30 tablet 11 10/23/19 25 026 Active PONATinib (ICLUSIG) 15 mg tabletIndicati ons:Chronic Phase Chronic Myeloid Leukemia Take 1 tablet (15 mg total) by mouth daily 30 tablet 01/02/20 25 Active PONATinib (Iclusig) 15 mg tabletIndicati ons:CML (chronic myelocytic leukemia) (HCC) TAKE 1 TABLET (15 MG) BY MOUTH ONCE DAILY 30 tablet 07/17/19 25 025 Discontinued Active Problems Patient Care Coordination No te Formatting of this note is d ifferent from the original. BMT Inpatient Care Coordination Overview Diagnosis Possible CML - path pending Treatment Plan Dasatinib Clinical Trial Inpatient Floor 9800 Reason for Admission New leuk Transplant/IEC Planning BMT/IEC Plan Patient Education Completed Consents Done IDMs Insurance Approvals/Issues Discharge Planning Anticipated Discharge Date 10/30 Issue to be Resolved Before Discharge Living Situation/Distance from [place], [place] (1 hr) Discharge To Home Caregiver Requests sent to Case Management and/or Medical Assistants Dasatinib to [facility]. $0 copay. Picked up 10/30 and given to patient. Local Oncologist contact Local labs on 11/04 at [facility] Walk in/no appt needed Post-Discharge Follow-up 11/10 (lorraine Roca) Consult requested Televisit Consent Miscellaneous Notes: 10/28 BmBx today. Giving Officer c/s for bleeding. Von Willebrand factor pending. Problem Noted Date Diagnosed Date Chronic iron deficiency anemia 01/09/2024 Colon cancer screening 09/29/2023 Drug rash 11/11/2022 Chemotherapy-induced neutropenia 08/26/2021 Assessment & Plan (09/28/2023 9:00 AM CDT): Continues following with Dr Roca Recurrent major depressive disorder, in full rem ission 08/19/2021 Assessment & Plan (10/30/2021 4:53 PM CDT): Patient reports feeling down, where the multiple things, works self up over multiple small concerns, reports that she always has negative thoughts Encouraged patient to engage with cognitive therapy in order to help refrain thoughts discontinue desvenlafaxine, start bupropion to 150 mg daily Assessment & Plan (08/19/2021 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): Labs reviewed today; patient noted to be neutropenic at 900 neutrophils on differential Discussed with patient general neutropenic precautions to reduce risk of infection Assessment & Plan (03/26/2021 3:13 PM CDT): Patient is candidate for a booster dose of COVID-19 vaccine; last dose was given in July 2020, patient is due for 3rd dose Discussed with patient risk and benefits of 3rd dose, patient will continue to think about it; will schedule booster dose as desired Assessment & Plan (01/22/2021 4:08 PM CDT): Follows with Hematology-Oncology Currently on dasatinib -patient reports weight gain approximately 10 lb since starting medication; some concern regarding side effects as patient has depressed mood changes in behavior; unclear if due to new diagnosis verses medication side effects Will continue to follow and monitor, work with Oncology regarding medication options Assessment & Plan (10/30/2020 2:58 PM CDT): 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 Symptoms include several months of fatigue, splenomegaly, visual acuity changes and new LANDRY and chest pain (though no current chest pain at this time). Trop at OSH negative. -no urgent need for apheresis -EKG, trops neg -Coags unremarkable -TLS labs - PB smear c/w chronic phase CML - peripheral flow, cytogenetics, FLT3, BCR/ABL, JAK2, CALR with reflex ==> pending -RVP neg -s/p BMBx 10/28 - s/p hydrea 10/27-10/30 -Given splenomegaly and headache -> check CT Head and CT A/P unremarkable except for splenomegaly and cholelithiasis -TLS ppx: NS 75cc/hr, allopurinol, q8 hour TLS labs. Will increase IVF to 125 cc/hr - started on Dasatinib 10/29 - to be continues as OP Assessment & Plan (10/27/2020 10:18 PM CDT): New diagnosis. 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 Symptoms include several months of fatigue, splenomegaly, visual acuity changes and new LANDRY and chest pain (though no current chest pain at this time). Trop at OSH negative. -Discussed with heme/onc -> No urgent need for pheresis overnight. -Check EKG, trops, CBC, coags, LDH, TLS labs, peripheral flow, cytogenetics, BCR/ABL, JAK2, CALR with reflex, RVP -Will need BMBx in AM -Monitor EKG and troponins -> if any concern for NE, will need urgent pheresis -Given splenomegaly and headache -> check CT Head and CT A/P if cr allows it. -TLS PPX: NS 75cc/hr, allopurinol, q8 hour TLS labs CHNATELLE (generalized anxiety disorder) 10/27/2020 Assessment & Plan (11/02/2023 10:35 AM CDT): Seems to be improved on the Wellbutrin 300 mg daily. Will continue and side effects to be mindful of discussed. Assessment & Plan (09/28/2023 9:00 AM CDT): Not at goal, has been on Wellbutrin 150 mg for quite some time. Increase to 300 mg daily, follow up in 5 weeks. Assessment & Plan (10/30/2021 4:55 PM CDT): Stable, not well controlled, continues To of multiple negative thoughts which give patient anxiety is Patient is feeling down due to multiple health conditions encouraged cognitively of therapy, start bupropion 150 mg daily Assessment & Plan (03/26/2021 3:13 PM CDT): Patient reports improvement in symptoms, feeling better indefinite changes medication; at this time patient like to continue with current dose and re- engage with counseling Continue desvenlafaxine 25 mg daily Patient to contact [facility] to reengage with counseling Assessment & Plan (03/24/2021 4:23 PM CDT): Patient to continue with bupropion as any 5 mg b.i.d.; continues to have poorly controlled anxiety Encouraged patient to engage with counseling Add disc venlafaxine 25 mg daily Hydroxyzine 25 mg t.i.d. as needed for anxiety Assessment & Plan (01/22/2021 4:08 PM CDT): Not well controlled, patient continues to have anxiety, has depressed mood and flat affect interview today Patient is interested in discontinuing bupropion, would like to transition to another medication Will continue taper of bupropion, decrease to 150 mg for 10 days, then 75 mg for 10 days Will start duloxetine 30 mg b.i.d. Patient referred for counseling Assessment & Plan (10/27/2020 10:19 PM CDT): Stable, -Continue Wellbutrin. Assessment & Plan (10/27/2020 9:46 PM CDT): Stable, -Continue Wellbutrin. Oily skin 10/27/2020 Assessment & Plan (10/27/2020 10:19 PM CDT): Stable. -Continue aldactone. Assessment & Plan (10/27/2020 9:47 PM CDT): Stable. -Continue aldactone. Hyponatremia 10/27/2020 Assessment & Plan (10/28/2020 3:40 PM CDT): Sodium 133 at OSH. Likely from acute illness. Mild, continue to monitor Assessment & Plan (10/27/2020 9:47 PM CDT): Sodium 133 at OSH. Likely from acute illness. -Check sodium here, monitor on fluids. Anemia 10/27/2020 Assessment & Plan (09/28/2023 9:01 AM CDT): Continues follow up with Dr Roca Continuing iron supplement. 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 Vaginal bleeding 10/27/2020 Overview (10/28/2020): Added automatically from request for surgery [id number] Assessment & Plan (10/30/2020 3:08 PM CDT): -2/2 recent LEEP in setting of platelet malfunction 2/2 ? Acquired Von Willebrand factor. Von Willebrand factor activity wnl -cook room supervisor consulted and following -s/p vaginal packing 10/28 with significant soaking that prompted cook room supervisor to take pt to the OR and do EUA, cautery, and vaginal packing -voiding trail ongoing and successful thus far - no more bleeding Immunizations Immunization Administration Dates Next Due Hep B Vaccine 07/01/2003,05/22/2003 Influenza, Quadrivalent, Kady l Culture-based MDCK, Preservative Free, Antibiotic Free, Intramuscular 04/11/2023,03/16/2022,03/31/2020 Influenza, Quadrivalent, Spl it, Preservative Free, Intramuscular 03/26/2021,04/01/2016 Influenza, Unspecified 04/20/2024,03/16/2022, MMR 07/01/2003,05/22/2003 Moderna SARS-CoV-2 Monovalen t Vaccination (12+ YRS) 05/13/2021,07/25/2020,06/26/2020 Social History Tobacco Use Types Packs/Day Years Used Date Smoking Tobacco: Never Cigarettes Smokeless Tobacco: Never Tobacco Cessation:Counseling Given: Not Answered Alcohol Use Standard Drinks/Week Comments Yes 2 (1 standard drink = 0.6 oz pur e alcohol) AUDIT-C Answer Date Recorded Q1: How often do you have a drink containing alc ohol? 2-3 times a week 10/28/2023 Q2: How many drinks containi ng alcohol do you have on a typical day when you are drinking? 1 or 2 10/28/2023 Q3: How often do you have si x or more drinks on one occasion? Never 10/28/2023 PHQ-2 Answer Date Recorded PHQ-2 Total Score (If total score is 3 or more points, staff should administer the PHQ-9) 2 11/02/2023 PHQ-9 Answer Date Recorded PHQ-9 Total Score 11 09/28/2023 Personal Safety Answer Date Recorded Have you ever been in or are you currently in a harmful physical or emotional relationship or is someone making you feel afraid or unsafe? Denies 10/28/2023 Comments No Sex and Gender Information Value Date Recorded Sex Assigned at Not on file Legal Sex Female 5:11 PM CDT Gender Identity Female 01/19/2021 8:35 AM CDT Sexual Orientation Straight 01/19/2021 8: 35 AM CDT Last Filed Vital Signs Vital Sign Reading Time Taken Comments Blood Pressure 129/95 10/31/2024 11:41 AM CDT Pulse 78 10/31/2024 11:41 AM CDT Temperature 36.6 C (97.8 F) 10/31/2024 11:41 AM CDT Respiratory Rate 16 10/31/2024 11:41 AM CDT Oxygen Saturation 100% 10/31/2024 11:41 AM CDT Inhaled Oxygen Concentration - - Weight 72.6 kg (160 lb) 10/31/2024 11:37 AM CDT Height 167.6 cm (5' 6) 03/26/2024 8:41 AM CDT Body Mass Index 25.82 03/26/2024 8:41 AM CDT Plan of Treatment Scheduled Procedures Name Priority Associated Diagnoses Date/Ti me COLONOSCOPY Open Access Colon cancer screening Procedures Procedure Name Priority Date/Time Associated Diagnosis Comments EGFR Routine 10/31/2024 11:55 AM CDT CML (chronic myelocytic leukemia) (HCC) Chronic iron deficiency anemia DIFFERENTIAL AUTO Routine 10/31/2024 11: 55 AM CDT CML (chronic myelocytic leukemia) (HCC) Chronic iron deficiency anemia CBC WITH AUTO DIFFERENTIAL Routine 10/31/2024 11:55 AM CDT CML (chronic myelocytic leukemia) (HCC) Chronic iron deficiency anemia COMPREHENSIVE METABOLIC PANEL Routine 10/31/2024 11:55 AM CDT CML (chronic myelocytic leukemia) (HCC) Chronic iron deficiency anemia POTASSIUM, WHOLE BLOOD Routine 10/22/2024 2:40 PM CDT CML (chronic myelocytic leukemia) (HCC) EGFR Routine 10/22/2024 9:04 AM CDT CML (chronic myelocytic leukemia) (HCC) DIFFERENTIAL AUTO Routine 10/22/2024 9:0 4 AM CDT CML (chronic myelocytic leukemia) (HCC) BCR/ABL P210 QUANTITATIVE, PCR Routine 10/22/2024 9:04 AM CDT CML (chronic myelocytic leukemia) (HCC) IRON PROFILE W/ IBC Routine 10/22/2024 9 :04 AM CDT CML (chronic myelocytic leukemia) (HCC) FERRITIN Routine 10/22/2024 9:04 AM CDT CML (chronic myelocytic leukemia) (HCC) LACTATE DEHYDROGENASE Routine 10/22/2024 9:04 AM CDT CML (chronic myelocytic leukemia) (HCC) URIC ACID Routine 10/22/2024 9:04 AM CDT CML (chronic myelocytic leukemia) (HCC) CBC WITH AUTO DIFFERENTIAL Routine 10/22/2024 9:04 AM CDT CML (chronic myelocytic leukemia) (HCC) COMPREHENSIVE METABOLIC PANEL Routine 10/22/2024 9:04 AM CDT CML (chronic myelocytic leukemia) (HCC) LIPASE Routine 10/22/2024 9:04 AM CDT CML (chronic myelocytic leukemia) (HCC) SCREENING MAMMOGRAM BILATERAL W THEO W IMPLANTS Schedule Routine, Read Routine (OP Routine) 11/18/2023 3:10 PM CDT Encounter for screening mammogram for malignant neoplasm of breast COLONOSCOPY 10/28/2023 3:15 PM CDT PAP AND HIGH RISK HPV, REFLEX TO GENOTYPING Routine 01/06/2023 from Last 3 Months or Most Recently Relevant to Health Maintenance Results * eGFR (10/31/2024 11:55 AM CDT) eGFR 76 >=60 mL/min/1. 73 m2 Comment: Interpretive Data Reference Interval Normal >/= 90 mL/min/1.73m2 Mildly decreased* 60 - 89 mL/min/1.73m2 Mildly to moderately decreased 45 - 59 mL/min/1.73m2 Moderately to severely decreased 30 - 44 mL/min/1.73m2 Severely decreased 15 - 29 mL/min/1.73m2 Kidney Failure < 15 mL/min/1.73m2 *Relative to young adult level Estimated glomerular filtration rate is determined by the 2020 CKD-EPI equation recommended by the National Kidney Foundation (A Unifying Approach to GFR Estimation: Recommendations of the NKF-ASK Task Force on Reassessing the Inclusion of Race in Diagnosing Kidney Disease, JASN 2020). The CKD-EPI equation should not be used for patients with unstable renal function and has not been validated in children and those over 70. Current interpretive data was last reviewed 2021. Blood 10/31/2024 11:5 5 AM CDT 10/31/2024 12:06 PM CDT Tyron Roca MD LAB BLOOD ORDERABLES Final Re sult [facility] [place] [address] * Differential, auto (10/31/2024 11:55 AM CDT) Neutrophil abs 3.66 1.50 - 6.50 K/cumm Imm gran abs 0.02 0.00 - 0.10 K/cumm [facility] Lymphocyte abs 1.30 0.80 - 3.30 K/cumm [facility] Monocyte abs 0.33 0.20 - 0.80 K/cumm [facility] Eosinophil abs 0.11 0.00 - 0.50 K/cumm [facility] Basophil abs 0.04 0.00 - 0.10 K/cumm [facility] Neutrophil pct 67.1 % [facility] Comment: Interpretive Data Percent cell count reference ranges are not reported, since discordance with absolute values may lead to misinterpretation of CBC data. Current Interpretive Data was last revised on 2017. Imm gran pct 0.4 % [facility] Comment: Interpretive Data Percent cell count reference ranges are not reported, since discordance with absolute values may lead to misinterpretation of CBC data. Current Interpretive Data was last revised on 2017. Lymphocyte pct 23.8 % [facility] Comment: Interpretive Data Percent cell count reference ranges are not reported, since discordance with absolute values may lead to misinterpretation of CBC data. Current Interpretive Data was last revised on 2017. Monocyte pct 6.0 % [facility] Comment: Interpretive Data Percent cell count reference ranges are not reported, since discordance with absolute values may lead to misinterpretation of CBC data. Current Interpretive Data was last revised on 2017. Eosinophil pct 2.0 % [facility] Comment: Interpretive Data Percent cell count reference ranges are not reported, since discordance with absolute values may lead to misinterpretation of CBC data. Current Interpretive Data was last revised on 2017. Basophil pct 0.7 % [facility] Comment: Interpretive Data Percent cell count reference ranges are not reported, since discordance with absolute values may lead to misinterpretation of CBC data. Current Interpretive Data was last revised on 2017. Blood 10/31/2024 11:5 5 AM CDT 10/31/2024 12:06 PM CDT Tyron Roca MD LAB BLOOD ORDERABLES Final Re sult Performing Organization Address [facility]/ZIP Co de Phone Number [facility] [place] [address] * (ABNORMAL) CBC with auto differential (10/31/2024 11:55 AM CDT) Pathologist [facility] WBC 5.46 3.80 - 9.90 K/cumm Hgb 11.7(L) 11.9 - 15.5 g/dL [facility] Hct 33.5(L) 35.6 - 45.5 % [facility] Plt 152 150 - 400 K/cumm [facility] MPV 9.7 9.1 - 12.3 fL [facility] RBC 3.90 3.90 - 5.20 M/cumm [facility] MCV 85.9 81.3 - 96.4 fL [facility] MCH 30.0 27.1 - 33.3 pg [facility] MCHC 34.9 32.3 - 35.7 g/dL [facility] RDW CV 12.6 11.1 - 14.9 % [facility] RDW SD 38.5 35.7 - 48.1 fL [facility] NRBC abs 0.00 0.00 - 0.01 K/cumm [facility] Blood 10/31/2024 11:5 5 AM CDT 10/31/2024 12:06 PM CDT Tyron Roca MD LAB BLOOD ORDERABLES Final Re sult Performing Organization Address City/[facility]/ZIP Co de Phone Number [facility] [place] [address] * Comprehensive metabolic panel (10/31/2024 11:55 AM CDT) Pathologist [facility] Sodium 140 135 - 145 mmol/L Potassium, pl 4.3 3.3 - 4.9 mmol/L [facility] Chloride 103 97 - 110 mmol/L [facility] CO2 31 22 - 32 mmol/L [facility] Anion gap 6 2 - 15 mmol/L [facility] BUN 13 6 - 25 mg/dL [facility] Creatinine 0.93 0.60 - 1.10 mg/dL [facility] Glucose 92 70 - 199 mg/dL [facility] Comment: Interpretive Data Fasting glucose >/= 126 mg/dl is diagnostic for diabetes. Fasting is defined as no caloric intake for at least 8 hours. Fasting glucose between 100 mg/dl to 125 mg/dl is diagnostic of prediabetes. In a patient with classic symptoms of hyperglycemia or hyperglycemic crisis, a random glucose >/= 200 mg/dl is diagnostic for diabetes. In the absence of unequivocal hyperglycemia, results should be confirmed by repeat testing. The classification and Diagnosis of Diabetes Diabetes Care 2021; 46: S19-S40. Current interpretive data was last revised 2022. Calcium 9.5 8.5 - 10.3 mg/dL [facility] Bilirubin, total 0.9 0.1 - 1.2 mg/dL [facility] Protein, pl 7.0 6.5 - 8.5 g/dL [facility] Albumin 4.5 3.5 - 5.0 g/dL [facility] Alk phos 43 40 - 130 Units/L [facility] ALT 13 7 - 45 Units/L [facility] AST 18 10 - 45 Units/L [facility] Blood 10/31/2024 11:5 5 AM CDT 10/31/2024 12:06 PM CDT us Tyron Roca MD LAB BLOOD ORDERABLES Final Re sult [facility] Department [place] [address] * Potassium, whole blood (10/22/2024 2:40 PM CDT) [facility] [address] Potassium, bld 4.6 3.3 - 4.9 mmol/L Comment: Interpretive Data This method is not able to assess for hemolysis, which may falsely increase potassium concentrations. If further testing is needed to evaluate this result, consider in-laboratory plasma potassium. Current Interpretive Data was last revised on 2022. Blood 10/22/2024 2:40 PM CDT 10/22/2024 8:16 PM CDT Tyron Roca MD LAB BLOOD ORDERABLES Final Re sult [facility] [id number] Department [place] [address] * (ABNORMAL) BCR::ABL1 PCR quantitative p210 (10/22/2024 9:04 AM CDT) [facility] [address] BCR/ABL p210 Positive(A) [facility] BCR/ABL p210 % (IS) 0.13% [facility] BCR/ABL p210 Interpretation Positive: BCR::ABL1 major (p210) transcripts were detected. [facility] BCR/ABL p210 Specimen Blood [facility] BCR/ABL p210 Result Review Final report reviewed by: Angelina Diaz MS, MB([facility]) [employer], on 10/23/2024 13:21:02 CDT. [facility] Comment: Interpretive Data A summary of previous BCR::ABL1 major quantitative RT-PCR results for this patient performed in the [facility] Molecular Diagnostics Lab may be found as a cumulative laboratory report in the Results Review section of the Medical Record. Method: The quantitative BCR::ABL1 assay is performed on the Gene[employer]pert ([employer]) platform. RNA is extracted, converted to cDNA, and BCR::ABL1 and ABL1 cDNA targets are quantified by real-time PCR amplification. Results are reported as the percentage ratio of BCR::ABL1 fusion transcripts to ABL1 transcripts (BCR::ABL1/ABL1) on the International Scale (Catina HUA, 2010). A BCR::ABL1 value of 0.1% on the International Scale represents a major molecular response in CML (Francisco S, 2008). The analytical sensitivity of this assay is 0.0032% BCR::ABL1/ABL1. Due to assay non-linearity for the BCR::ABL1 p210 isoform at very high and low concentrations, results greater than 10% (above upper limit of quantification or ULOQ) will be reported as > 10% and results detected at less than 0.0032% (below lower limit of quantification or LLOQ) will be reported as < 0.0032% . Limitations: This test only detects the e13a2 and e14a2 BCR::ABL1 major isoforms. A negative result does not exclude the presence of the e1a2 (p190) BCR::ABL1 minor isoforms. False positive or negative results may occur with unusual BCR::ABL1 isoforms. FDA Comment: This test was developed and its performance characteristics determined by this [facility]. Peripheral blood testing has been cleared by the U.S. Food and Drug Administration (FDA). Alternative specimen types, including extracted RNA or bone marrow aspirates have not been cleared or approved by the U.S. Food and Drug Administration. FDA does not require those modifications to go through premarket FDA review. This test is used for clinical purposes. It should not be regarded as investigational or for research. This laboratory is certified under the Clinical Laboratory Improvement Amendments (CLIA) as qualified to perform high complexity clinical laboratory testing. Literature References: Francisco S, Erick L, Jose N, et al. Desirable performance characteristics for BCR-ABL measurement on an international reporting scale to allow consistent interpretation of individual patient response and comparison of response rate between clinical trials. Blood 2008;113:9780-0069. Catina HUA, Donald P, Rolando P, et al. Establishment of the first World Health Organization International Genetic Reference Panel for quantification of BCR-ABL mRNA. Blood 2010;116:k724-907. GeneXpert BCR-ABL V2 Package Insert [id number], Rev B (May 2016). Xpert BCR-ABL Monitor, [id number], Rev A, November 2010. This test was performed at: [facility], [facility], [place]#[id number], Gisele Colon, Ph.D., [place], [address], [place] Current interpretive data was last revised 2023. Blood 10/22/2024 9:04 AM CDT 10/22/2024 12:23 PM CDT Alice Pacheco PROCESS EQUIPMENT OPERATOR LAB GENETIC TESTING F inal Result Performing Organization Address City/[facility] Co de Phone Number [facility] [place] [address] [facility] * eGFR (10/22/2024 9:04 AM CDT) eGFR 73 >=60 mL/min/1. 73 m2 Comment: Interpretive Data Reference Interval Normal >/= 90 mL/min/1.73m2 Mildly decreased* 60 - 89 mL/min/1.73m2 Mildly to moderately decreased 45 - 59 mL/min/1.73m2 Moderately to severely decreased 30 - 44 mL/min/1.73m2 Severely decreased 15 - 29 mL/min/1.73m2 Kidney Failure < 15 mL/min/1.73m2 *Relative to young adult level Estimated glomerular filtration rate is determined by the 2020 CKD-EPI equation recommended by the National Kidney Foundation (A Unifying Approach to GFR Estimation: Recommendations of the NKF-ASK Task Force on Reassessing the Inclusion of Race in Diagnosing Kidney Disease, JASN 2020). The CKD-EPI equation should not be used for patients with unstable renal function and has not been validated in children and those over 70. Current interpretive data was last reviewed 2021. Blood 10/22/2024 9:04 AM CDT 10/22/2024 9:11 AM CDT Tyron Roca MD LAB BLOOD ORDERABLES Final Re sult [facility] [place] [address] * Differential, auto (10/22/2024 9:04 AM CDT) Neutrophil abs 1.96 1.50 - 6.50 K/cumm Comment:Testing performed by : [facility], [address] [place] [phone] Lymphocyte abs 1.69 0.80 - 3.30 K/cumm [facility] Comment:Testing performed by : [facility], [address] [place] [phone] Monocyte abs 0.35 0.20 - 0.80 K/cumm [facility] Comment:Testing performed by : [facility], [address] [place] [phone] Eosinophil abs 0.19 0.00 - 0.50 K/cumm [facility] Comment:Testing performed by : [facility], [address] [place] [phone] Basophil abs 0.05 0.00 - 0.10 K/cumm [facility] Comment:Testing performed by : [facility], [address] [place] [phone] Neutrophil pct 46.2 % [facility] Comment: Interpretive Data Percent cell count reference ranges are not reported, since discordance with absolute values may lead to misinterpretation of CBC data. Current Interpretive Data was last revised on 2017. Testing performed by: [facility], [address] [place] [phone] Lymphocyte pct 39.9 % [facility] Comment: Interpretive Data Percent cell count reference ranges are not reported, since discordance with absolute values may lead to misinterpretation of CBC data. Current Interpretive Data was last revised on 2017. Testing performed by: [facility], [address] [place] [phone] Monocyte pct 8.2 % [facility] Comment: Interpretive Data Percent cell count reference ranges are not reported, since discordance with absolute values may lead to misinterpretation of CBC data. Current Interpretive Data was last revised on 2017. Testing performed by: [facility], [address] [place] [phone] Eosinophil pct 4.5 % [facility] Comment: Interpretive Data Percent cell count reference ranges are not reported, since discordance with absolute values may lead to misinterpretation of CBC data. Current Interpretive Data was last revised on 2017. Testing performed by: [facility], [address] [place] [phone] Basophil pct 1.3 % [facility] Comment: Interpretive Data Percent cell count reference ranges are not reported, since discordance with absolute values may lead to misinterpretation of CBC data. Current Interpretive Data was last revised on 2017. Testing performed by: [facility], [address] [place] [phone] Blood 10/22/2024 9:04 AM CDT 10/22/2024 9:08 AM CDT Tyron Roca MD LAB BLOOD ORDERABLES Final Re sult [facility] [place] [address] * (ABNORMAL) Iron profile w/ IBC (10/22/2024 9:04 AM CDT) Iron 36 35 - 145 mcg/dL TIBC 336 250 - 400 mcg/dL [facility] Transferrin saturation 11(L) 20 - 50 % [facility] Blood 10/22/2024 9:04 AM CDT 10/22/2024 9:11 AM CDT Tyron Roca MD LAB BLOOD ORDERABLES Final Re sult [facility] [place] [address] * (ABNORMAL) CBC with auto differential (10/22/2024 9:04 AM CDT) WBC 4.24 3.80 - 9.90 K/cumm Comment:Testing performed by : [facility], [address] [place] [phone] Hgb 12.2 11.9 - 15.5 g/dL [facility] Comment:Testing performed by : [facility], [address] [place] [phone] Hct 34.8(L) 35.6 - 45.5 % [facility] Comment:Testing performed by : [facility], [address] [place] [address] Plt 161 150 - 400 K/cumm CERANTHONY HARKINS Comment:Testing performed by : [facility], [address] [place] [address] MPV 7.9 6.8 - 10.4 fL GABRIELLA HARKINS Comment:Testing performed by : [facility], [address] [place] [address] RBC 3.92 3.90 - 5.20 M/cumm [facility]HT[facility] Comment:Testing performed by : [facility], [address] [place], [place] [phone] MCV 88.7 81.3 - 96.4 fL GABRIELLA HARKINS Comment:Testing performed by : [facility], [address] [place], [place] [phone] MCH 31.1 27.1 - 33.3 pg CERANTHONY [facility] Comment:Testing performed by : [facility], [address] [place] [address] MCHC 35.0 32.3 - 35.7 g/dL GABRIELLA [facility] Comment:Testing performed by : [facility], [address] [place] [address] RDW CV 13.0 11.1 - 14.9 % GABRIELLA [facility] Comment:Testing performed by : [facility], [address] [place] [address] NRBC abs 0.00 0.00 - 0.01 K/cumm GABRIELLA [facility] Comment:Testing performed by : [facility], [address] [place] [address] Blood 10/22/2024 9:04 AM CDT 10/22/2024 9:08 AM CDT us Tyron Roca MD LAB BLOOD ORDERABLES Final Re sult [facility] [place] [address] * Uric acid (10/22/2024 9:04 AM CDT) Uric acid 3.1 2.5 - 7.0 mg/dL Blood 10/22/2024 9:04 AM CDT 10/22/2024 9:11 AM CDT Tyron Roca MD LAB BLOOD [place]AB[place] [address] * Lipase (10/22/2024 9:04 AM CDT) Pathologist [facility] Lipase 37 10 - 99 Units/L Blood 10/22/2024 9:04 AM CDT 10/22/2024 9:11 AM CDT Tyron Roca MD LAB BLOOD ORDERAB[place] [address] * Lactate dehydrogenase (LD) (10/22/2024 9:04 AM CDT) Lactate dehydrogenase (LDH) 161 100 - 250 Units/L Blood 10/22/2024 9:04 AM CDT 10/22/2024 9:11 AM CDT Tyron Roca MD LAB BLOOD ORDERAB[place] [address] * (ABNORMAL) Ferritin (10/22/2024 9:04 AM CDT) Ferritin 10(L) 13 - 150 ng/mL Blood 10/22/2024 9:04 AM CDT 10/22/2024 9:11 AM CDT Tyron Roca MD LAB BLOOD ORDERABLES Final Re sult [facility] [place] [address] * (ABNORMAL) Comprehensive metabolic panel (10/22/2024 9:04 AM CDT) Sodium 138 135 - 145 mmol/L Potassium, pl 5.6(H) 3.3 - 4.9 mmol/L [facility] Chloride 105 97 - 110 mmol/L [facility] CO2 27 22 - 32 mmol/L [facility] Anion gap 6 2 - 15 mmol/L [facility] BUN 18 6 - 25 mg/dL [facility] Creatinine 0.96 0.60 - 1.10 mg/dL [facility] Glucose 97 70 - 199 mg/dL [facility] Comment: Interpretive Data Fasting glucose >/= 126 mg/dl is diagnostic for diabetes. Fasting is defined as no caloric intake for at least 8 hours. Fasting glucose between 100 mg/dl to 125 mg/dl is diagnostic of prediabetes. In a patient with classic symptoms of hyperglycemia or hyperglycemic crisis, a random glucose >/= 200 mg/dl is diagnostic for diabetes. In the absence of unequivocal hyperglycemia, results should be confirmed by repeat testing. The classification and Diagnosis of Diabetes Diabetes Care 202; 46: S19-S40. Current interpretive data was last revised 2022. Calcium 9.1 8.5 - 10.3 mg/dL C[facility] Bilirubin, total 1.5(H) 0.1 - 1.2 mg/dL [facility] Protein, pl 6.9 6.5 - 8.5 g/dL [facility] Albumin 4.4 3.5 - 5.0 g/dL [facility] Alk phos 35(L) 40 - 130 Units/L [facility] ALT 10 7 - 45 Units/L [facility] AST 17 10 - 45 Units/L [facility] Blood 10/22/2024 9:04 AM CDT 10/22/2024 9:11 AM CDT us Tyron Roca MD LAB BLOOD ORDERABLES Final Re sult GABRIELLA [facility] [place] [address] * Screening Mammogram Bilateral W Theo W Implants (11/18/2023 3:10 PM CDT) Anatomical Region Laterality Modality Breast Bilateral Mammography 12/01/2023 1:36 PM CDT Impressions 12/01/2023 1:36 PM CDT There is no mammographic evidence of malignancy. A 1 year screening mammogram is recommended. BI-RADS: 1 - Negative. The patient has been or will be contacted. The patient will be entered into a reminder system with a target due date of 1 year for her next mammogram. Electronically signed by: Leola Oakley M.D. Narrative 12/01/2023 1:36 PM CDT EXAMINATION: SCREENING MAMMOGRAM BILATERAL W THEO W IMPLANTS ORDERING HEALTHCARE PROVIDER: KIM CHAPARRO HISTORY: Routine screening mammography. COMPARISON: 12/29/2021, 09/12/2020, 02/20/2018, 02/09/2018 TECHNIQUE: CC and MLO views of the bilateral breasts were obtained with digital technique using breast tomosynthesis with C view. Computer aided detection was utilized. FINDINGS: DENSITY: The tissue of the bilateral breasts is heterogeneously dense, which may obscure small masses. BREASTS: Bilateral breast implants limit evaluation. No suspicious mammographic finding in either breast. us Kim Chaparro PROCESS EQUIPMENT OPERATOR IMG MAMMO PROCEDURES Final Resul t * Colonoscopy (10/28/2023 3:15 PM CDT) Anatomical Region Laterality Modality Other Narrative Procedure Note Melva Lim MD - 10/28/2023 3:15 PM CDT [facility] Patient Name: Angelique Yeboah Procedure Date: 10/28/2023 3:15 PM Date of : 1975 Admit Type: Outpatient Age: 48 Gender: Female Attending MD: Melva Lim M.D. Room: [facility] ENDOSCOPY ROOM 8 Note Status: Finalized Procedure: Colonoscopy Indications: Screening for colorectal malignant neoplasm, Thisis the patient's first colonoscopy Referring MD: Elisa Stack Providers: Melva Lim M.D. Comorbidities Chronic myeloid leukemia (CML) Medicines: Monitored Anesthesia Care Complications: No immediate complications. Estimated Blood Loss: Estimated blood loss was minimal. Procedure: Pre-Anesthesia Assessment: - Prior to the procedure, a History and Physicalwas performed, and patient medications, allergies and sensitivities were reviewed. The patient'stolerance of previous anesthesia was reviewed. - Immediately prior to administration ofmedications, the patient was re-assessed for adequacy to receive sedatives. - The risks and benefits of the procedure and the sedation options and risks were discussed with the patient. All questions were answered and informed consent was obtained. The benefits, risks and alternatives of theprocedure and sedation were discussed and informed consentwas obtained. All questions were answered. Please referto the signed informed consent document in the medical record. The scope was passed under direct vision.The CF [id number] endoscope was introduced through the anus and advanced to the terminal ileum. The colonoscopy was performed without difficulty. The quality of the bowel preparation was evaluatedusing the BBPS (Bowen Bowel Preparation Scale) withscores of: Right Colon = 3, Transverse Colon = 3 and Left Colon = 3 (entire mucosa seen well with no residual staining, small fragments of stool or opaqueliquid). The total BBPS score equals 9. The bowelpreparation used was GoLYTELY via split dose instruction. The quality of the bowel preparation was excellent. Findings: The perianal and digital rectal examinations were normal. The terminal ileum appeared normal. A 3 mm polyp was found in the rectum. The polyp was sessile. Thepolyp was removed with a jumbo cold forceps. Resection and retrieval were complete. The exam was otherwise without abnormality on direct and retroflexion views. Impression: - The examined portion of the ileum was normal. - One 3 mm polyp in the rectum, removed with ajumbo cold forceps. Resected and retrieved. - The examination was otherwise normal on directand retroflexion views. Recommendation: - Await pathology results. - Repeat colonoscopy in 7-10 years for surveillance based on pathology results. Electronically signed by Melva Lim MD Melva Lim M.D. 10/28/2023 3:41:13 PM . Number of Addenda: 0 Note Initiated On: 10/28/2023 3:15 PM Melva Lim MD ENDOSCOPY PROCEDURES Final Resu lt * Pap and High Risk HPV and Genotyping (Cytology Component) (01/06/2023) Thin prep 01/06/2023 Historical Provider LAB CYTOLOGY ORDERABLES F inal Result from Last 3 Months or Most Recently Relevant to Health Maintenance Insurance [facility] [address] [place] ACCESS CHOICE Advance Directives For more information, please contact: [phone] * Full Code (Latest Code Status on File) Date Activated Date Inactivated Comments 10/28/2023 2:10 PM 10/28/2023 8:23 PM * Full Code Date Activated Date Inactivated Comments 10/27/2020 8:29 PM 10/30/2020 8:50 PM Care Teams Enterprise Systems Administrator Relationship Specialty Start Date End Date Kim Chaparro NP [address] [place] [address] PCP - General Family Medicine 09/28/23 Tyron Roca MD Consulting Physician Medical Oncology 10/30/20
--- OUTSIDE RECORDS SUMMARY | 2025-01-11 10:16 | XMS_ITS | Encounter Summary ---
Author Organization [facility] [employer] Address [address] [place] [address] Care Team Providers Care Outpatient Physical Therapist Assistant Name Role Phone Max Frederick MD Primary Care Provider [phone] Encounter Details Date Type Department Care Team (Late st Contact Info) Description 10/28/2021 History & Physical [facility]ology - Tim [address] [facility] [address] [phone] Max Frederick MD [address] [place] [address] Social History Tobacco Use Types Packs/Day Years Used Date Smoking Tobacco: Never Smokeless Tobacco: Never Alcohol Use Standard Drinks/Week Comments Yes 0 (1 standard drink = 0.6 oz pur e alcohol) oc Comments No Sex and Gender Information Value Date Recorded Sex Assigned at Not on file Legal Sex Female 4:01 PM CDT Gender Identity Not on file Sexual Orientation Not on file documented as of this encounter Plan of Treatment Not on file documented as of this encounter Visit Diagnoses Not on filedocumented in this encounter Care Teams Outpatient Physical Therapist Assistant Relationship Specialty Start Date End Date Max Frederick MD [address] [place] [address] PCP - General Family Practice 10/24/20 documented as of this encounter
--- OUTSIDE RECORDS SUMMARY | 2025-01-11 10:16 | XMS_ITS | Clinical Summary ---
Author Organization [facility] Address [address] [place] [address] Phone Care Team Providers Care Fire Engine Operator Name Role Phone Tyron Roca MD Unavailable [phone] Kim Chaparro NP Primary Care Provider [phone] Allergies Active Allergy Reactions Criticality Noted Date [...] mg total) by mouth daily 90 tablet 01/23/20 24 Active aspirin 81 mg enteric coated tabletIndicati ons:CML (chronic myelocytic leukemia) (HCC) Take 1 tablet (81 mg total) by mouth daily 30 tablet 10/23/19 25 026 Active PONATinib (ICLUSIG) 15 mg tabletIndicati ons:Chronic Phase Chronic Myeloid Leukemia Take 1 tablet (15 mg total) by mouth daily 30 tablet 01/02/20 25 Active PONATinib (Iclusig) 15 mg tabletIndicati ons:CML (chronic myelocytic leukemia) (HCC) TAKE 1 TABLET (15 MG) BY MOUTH ONCE DAILY 30 tablet 11 07/17/19 25 025 Discontinued Active Problems Patient [...] be Resolved Before Discharge Living Situation/Distance from [place], [place] (1 hr) Discharge To Home Caregiver Requests sent to Case Management and/or Medical Assistants Dasatinib to [facility]. $0 copay. Picked up 10/30 and given to patient. Local Oncologist contact Local labs on 11/[address] [facility] Walk in/no appt needed Post-Discharge Follow-up 11/10 (lorraine Roca) Consult requested Televisit Consent Miscellaneous Notes: 10/28 BmBx today. Pan Puller c/s for bleeding. Von Willebrand factor pending. [...] daily Assessment & Plan (08/19/2021 9:17 AM CAR WORKER): Patient reports that in general her mood [...] 10/27/2020 Assessment & Plan (08/19/2021 9:19 AM CAR WORKER): Labs reviewed today; patient noted to be [...] and troponins -> if any concern for NV, will need urgent pheresis -Given splenomegaly and headache -> check CT Head and CT A/P if cr allows it. -TLS PPX: NS 75cc/hr, allopurinol, q8 hour TLS labs CHANTELLE (generalized anxiety disorder) 10/27/2020 Assessment & Plan [...] desvenlafaxine 25 mg daily Patient to contact [facility] to reengage with counseling Assessment & Plan [...] supplement. Assessment & Plan (08/19/2021 9:19 AM CAR WORKER): Patient continues to have anemia secondary to [...] (10/28/2020): Added automatically from request for surgery [id number] Assessment & Plan (10/30/2020 3:08 PM CDT): -2/2 recent LEEP in setting of platelet malfunction 2/2 ? Acquired Von Willebrand factor. Von Willebrand factor activity wnl -senior media buyer consulted and following -s/p vaginal packing 10/28 with significant soaking that prompted senior media buyer to take pt to the OR and do EUA, cautery, and vaginal packing -voiding trail ongoing and successful thus far - no more bleeding Encounters Date Type Department Care Team Description 01/03/2025 Telephone [facility] [address] [place] [phone] Tyron Roca MD 01/01/2025 Orders Only [facility] [address] [place] [phone] lEma Su NP CML (chronic myelocytic leukemia) (HCC) (Primary Dx) 01/01/2025 Telephone [facility] [address] [place] [phone] Karen Lopez, GRANT 12/26/2024 Telephone [facility] [address] [place] [phone] Karen Lopez RN 10/31/2024 11:36 AM CDT - 10/31/2024 2:44 PM CDT Hospital Encounter [facility] ([facility]) [facility] [place] [address] Chronic iron deficiency anemia (Primary Dx); CML (chronic myelocytic leukemia) (HCC) Discharge Disposition: Discharge to home or self care 10/22/2024 2:40 PM CDT - 10/22/2024 11:59 PM CDT Hospital Encounter [facility] [id number] [place] [address] CML (chronic myelocytic leukemia) (HCC) Discharge Disposition: Discharge to home or self care 10/22/2024 2:30 PM CDT Lab [facility] Outpatient Lab at [address] [phone] Chronic iron deficiency anemia (Primary Dx) 10/22/2024 9:30 AM CDT Office Visit [facility] [address] [place] [phone] Alice Pacheco NP CML (chronic myelocytic leukemia) (HCC) (Primary Dx) 10/22/2024 8:45 AM CDT Lab [facility] [address] [place] [address] [address] [place] [address] CML (chronic myelocytic leukemia) (HCC) 10/22/2024 8:30 AM CDT Lab [facility] [address] [place] [phone] CML (chronic myelocytic leukemia) (HCC) from Last 3 Months Immunizations Immunization Administration Dates Next Due Hep B Vaccine 07/01/2003,05/22/2003 Influenza, Quadrivalent, Kady l Culture-based MDCK, Preservative Free, Antibiotic Free, Intramuscular 04/11/2023,03/16/2022,03/31/2020 Influenza, Quadrivalent, Spl it, Preservative Free, Intramuscular 03/26/2021,04/01/2016 Influenza, Unspecified 04/20/2024,03/16/2022, MMR 07/01/2003,05/22/2003 Moderna SARS-CoV-2 Monovalen t Vaccination (12+ YRS) 05/13/2021,07/25/2020,06/26/2020 Surgical History Surgery Date Site/Laterality Comments SECTION 04/2000, 12/2001, 07/2008 RECONSTRUCTION BREAST IMMEDI ATE / DELAYED W/ TISSUE SKIN CARE THERAPIST CERVICAL BIOPSY W/ LOOP ELEC TRODE EXCISION BREAST SURGERY Bilateral Implants AUGMENTATION MAMMAPLASTY Bilateral bilateral implants, pt unsure of year when placed. >10 years ago Medical History Medical History Date Comments Anxiety Oily skin Cancer (HCC) 10/2020 Migraines 10/2022 Leukemia (HCC) 2020 Depression PONV (postoperative nausea and vomiting) Family History Medical History Relation Name Comments Prostate cancer Father Congenital heart disease Mother Stroke Mother Breast cancer Neg Hx Ovarian cancer Neg Hx Thyroid cancer Neg Hx Relation Name Status Comments Father Mother Social History Tobacco Use Types Packs/Day Years [...] Orientation Straight 01/19/2021 8: 35 AM CDT Obstetrics History Para Term AB IAB SAB Ectopic Multiple Livin g Live Births 4 3 3 Date Outcome GA Total Labor Labor/2nd/3rd Weight Sex Type Anes PTL Mariah A1 A5 Name Clin Term Term Term Last Filed Vital Signs Vital Sign Reading [...] me COLONOSCOPY Open Access Colon cancer screening Health Maintenance Due Date Last Done Comments Hepatitis C Screening 1975 DTaP/Tdap/Td Vaccine (1 - Tdap) 02/19/1988 Regular Well Visit/Exam 18-64 1995 Pneumococcal vaccine <65 (1 of 2 - PCV) 02/19/1996 Zoster Vaccine (1 of 2) 02/19/1996 Cervical Cancer Screening 01/07/20242022, 01/06/2023, 12/01/2021, Additional history exists Covid-19 Vaccine (4 - 2023-2 5 season) 2024 05/13/2021, 07/25/2020, 06/26/2020 Depression Screening 11/01/2024 11/02/2023, 09/28/2023, 09/28/2023, Additional history exists Breast Cancer Screening-Mammogram 11/17/2024 11/18/2023, 12/29/2021, 09/12/2020 Influenza Vaccine (#1) 2025 , 04/11/2023, 03/16/2022, Additional history exists Colon Cancer Screening-Colonoscopy 10/27/20302023 Hepatitis B Screening Completed 07/01/2003, 003 Procedures Procedure Name Priority Date/Time Associated Diagnosis [...] LAB BLOOD ORDERABLES Final Re sult [facility] Department [place] [address] * Differential, auto (10/31/2024 11:55 AM CDT) Neutrophil abs 3.66 1.50 - 6.50 K/cumm Imm gran abs 0.02 0.00 - 0.10 K/cumm [facility] Lymphocyte abs 1.30 0.80 - 3.30 K/cumm [facility] Monocyte abs 0.33 0.20 - 0.80 K/cumm [facility] Eosinophil abs 0.11 0.00 - 0.50 K/cumm [facility] Basophil abs 0.04 0.00 - 0.10 K/cumm [facility] Neutrophil pct 67.1 % [facility] Comment: Interpretive Data Percent cell count reference ranges are not reported, since discordance with absolute values may lead to misinterpretation of CBC data. Current Interpretive Data was last revised on 2017. Imm gran pct 0.4 % [facility] Comment: Interpretive Data Percent cell count reference ranges are not reported, since discordance with absolute values may lead to misinterpretation of CBC data. Current Interpretive Data was last revised on 2017. Lymphocyte pct 23.8 % [facility] Comment: Interpretive Data Percent cell count reference ranges are not reported, since discordance with absolute values may lead to misinterpretation of CBC data. Current Interpretive Data was last revised on 2017. Monocyte pct 6.0 % [facility] Comment: Interpretive Data Percent cell count reference ranges are not reported, since discordance with absolute values may lead to misinterpretation of CBC data. Current Interpretive Data was last revised on 2017. Eosinophil pct 2.0 % [facility] Comment: Interpretive Data Percent cell count reference ranges are not reported, since discordance with absolute values may lead to misinterpretation of CBC data. Current Interpretive Data was last revised on 2017. Basophil pct 0.7 % [facility] Comment: Interpretive Data Percent cell count reference ranges are not reported, since discordance with absolute values may lead to misinterpretation of CBC data. Current Interpretive Data was last revised on 2017. Blood 10/31/2024 11:5 5 AM CDT 10/31/2024 12:06 PM CDT Tyron Roca MD LAB BLOOD ORDERABLES Final Re sult [facility] [place] [address] * (ABNORMAL) CBC with auto differential (10/31/2024 11:55 AM CDT) [facility] WBC 5.46 3.80 - 9.90 K/cumm Hgb 11.7(L) 11.9 - 15.5 g/dL [facility] Hct 33.5(L) 35.6 - 45.5 % [facility] Plt 152 150 - 400 K/cumm [facility] MPV 9.7 9.1 - 12.3 fL [facility] RBC 3.90 3.90 - 5.20 M/cumm [facility] MCV 85.9 81.3 - 96.4 fL [facility] MCH 30.0 27.1 - 33.3 pg [facility] MCHC 34.9 32.3 - 35.7 g/dL [facility] RDW CV 12.6 11.1 - 14.9 % [facility] RDW SD 38.5 35.7 - 48.1 fL [facility] NRBC abs 0.00 0.00 - 0.01 K/cumm [facility] Blood 10/31/2024 11:5 5 AM CDT 10/31/2024 12:06 PM CDT Tyron Roca MD LAB BLOOD ORDERABLES Final Re sult [facility] [place] [address] * Comprehensive metabolic panel (10/31/2024 11:55 AM CDT) [facility] Sodium 140 135 - 145 mmol/L Potassium, pl 4.3 3.3 - 4.9 mmol/L [facility] Chloride 103 97 - 110 mmol/L [facility] CO2 31 22 - 32 mmol/L [facility] Anion gap 6 2 - 15 mmol/L [facility] BUN 13 6 - 25 mg/dL [facility] Creatinine 0.93 0.60 - 1.10 mg/dL [facility] Glucose 92 70 - 199 mg/dL [facility] Comment: Interpretive Data Fasting glucose >/= 126 [...] 2022. Calcium 9.5 8.5 - 10.3 mg/dL [facility] Bilirubin, total 0.9 0.1 - 1.2 mg/dL [facility] Protein, pl 7.0 6.5 - 8.5 g/dL [facility] Albumin 4.5 3.5 - 5.0 g/dL [facility] Alk phos 43 40 - 130 Units/L [facility] ALT 13 7 - 45 Units/L [facility] AST 18 10 - 45 Units/L [facility] Blood 10/31/2024 11:5 5 AM CDT 10/31/2024 12:06 PM CDT Tyron Roca MD LAB BLOOD ORDERABLES Final Re sult [facility] Department [place] [address] * Potassium, whole blood (10/22/2024 2:40 PM CDT) [facility] Potassium, bld 4.6 3.3 - 4.9 mmol/L Comment: Interpretive Data This method is not able to assess for hemolysis, which may falsely increase potassium concentrations. If further testing is needed to evaluate this result, consider in-laboratory plasma potassium. Current Interpretive Data was last revised on 2022. Blood 10/22/2024 2:40 PM CDT 10/22/2024 8:16 PM CDT us Tyron Roca MD LAB BLOOD ORDERABLES Final Re sult [facility] [address] [facility] Department [place] [address] * (ABNORMAL) BCR::ABL1 PCR quantitative p210 (10/22/2024 9:04 AM CDT) [facility] BCR/ABL p210 Positive(A) [facility] BCR/ABL p210 % (IS) 0.13% [facility] BCR/ABL p210 Interpretation Positive: BCR::ABL1 major (p210) transcripts were detected. [facility] BCR/ABL p210 Specimen Blood [facility] BCR/ABL p210 Result Review Final report reviewed by: Angelina Diaz MS, MB([facility]) User Support Analyst Supervisor, on 10/23/2024 13:21:02 CDT. [facility] Comment: Interpretive Data A summary of previous BCR::ABL1 major quantitative RT-PCR results for this patient performed in the [facility] Molecular Diagnostics Lab may be found as a cumulative laboratory report in the Results Review section of the Medical Record. Method: The quantitative BCR::ABL1 assay is performed on the GeneXpert ([employer]) platform. RNA is extracted, converted to cDNA, and BCR::ABL1 and ABL1 cDNA targets are quantified by real-time PCR amplification. Results are reported as the percentage ratio of BCR::ABL1 fusion transcripts to ABL1 transcripts (BCR::ABL1/ABL1) on the International Scale (Catina HUA, 2010). A BCR::ABL1 value of 0.1% on the International Scale represents a major molecular response in CML ([place] S, 2008). The analytical sensitivity of this [...] of response rate between clinical trials. Blood 2008;113:9444-3185. Catina HE, Donald P, Rolando P, et al. Establishment of the first World Health Organization International Genetic Reference Panel for quantification of BCR-ABL mRNA. Blood 2010;116:a747-125. GeneXpert BCR-ABL V2 Package Insert [id number], Rev B (May 2016). Xpert BCR-ABL Monitor, [id number], Rev A, November 2010. This test was performed at: [facility], [facility], [facility]#[id number], Gisele Colon, Ph.D., [place], [address], [place] Current interpretive data was last revised 2023. Blood 10/22/2024 9:04 AM CDT 10/22/2024 12:23 PM CDT us Alice Pacheco NP LAB GENETIC TESTING F inal Result [facility] ROMERO [facility] Department [place] [address] [facility] * eGFR (10/22/2024 9:04 AM CDT) eGFR [...] ORDERABLES Final Re sult Performing Organization Address [facility] Co de Phone Number GABRIELLA HARKINS [facility] Department [place] [address] * Differential, auto (10/22/2024 9:04 AM CDT) Neutrophil abs 1.96 1.50 - 6.50 K/cumm Comment:Testing performed by : [facility] Heme Lab, [address] [place] [phone] Lymphocyte abs 1.69 0.80 - 3.30 K/cumm G[facility] Comment:Testing performed by : [facility], [address] [place] [phone] Monocyte abs 0.35 0.20 - 0.80 K/cumm [facility] Comment:Testing performed by : [facility] Heme Lab, [address] [place] [phone] Eosinophil abs 0.19 0.00 - 0.50 K/cumm [facility] Comment:Testing performed by : [facility]e Lab, [address] [place] [phone] Basophil abs 0.05 0.00 - 0.10 K/cumm [facility] Comment:Testing performed by : [facility]e Lab, [address] [place] [phone] Neutrophil pct 46.2 % [facility] Comment: Interpretive Data Percent cell count reference ranges are not reported, since discordance with absolute values may lead to misinterpretation of CBC data. Current Interpretive Data was last revised on 2017. Testing performed by: [facility], [address] [place] [phone] Lymphocyte pct 39.9 % [facility] Comment: Interpretive Data Percent cell count reference ranges are not reported, since discordance with absolute values may lead to misinterpretation of CBC data. Current Interpretive Data was last revised on 2017. Testing performed by: [facility]e Lab, [address] [place] [phone] Monocyte pct 8.2 % [facility] Comment: Interpretive Data Percent cell count reference ranges are not reported, since discordance with absolute values may lead to misinterpretation of CBC data. Current Interpretive Data was last revised on 2017. Testing performed by: [facility] Heme Lab, [address] [place] [phone] Eosinophil pct 4.5 % [facility] Comment: Interpretive Data Percent cell count reference ranges are not reported, since discordance with absolute values may lead to misinterpretation of CBC data. Current Interpretive Data was last revised on 2017. Testing performed by: [facility]e Lab, [address] [place] [phone] Basophil pct 1.3 % [facility] Comment: Interpretive Data Percent cell count reference ranges are not reported, since discordance with absolute values may lead to misinterpretation of CBC data. Current Interpretive Data was last revised on 2017. Testing performed by: [facility]e Lab, [address] [place] [phone] Blood 10/22/2024 9:04 AM CDT 10/22/2024 9:08 AM CDT Tyron Roca MD LAB BLOOD ORDERABLES Final Re sult Performing Organization Address City/[facility]/ZIP Co de Phone Number [facility] Department [place] [address] * (ABNORMAL) Iron profile w/ IBC (10/22/2024 9:04 AM CDT) Pathologist [facility] Iron 36 35 - 145 mcg/dL TIBC 336 250 - 400 mcg/dL [facility] Transferrin saturation 11(L) 20 - 50 % [facility] Blood 10/22/2024 9:04 AM CDT 10/22/2024 9:11 AM CDT Tyron Roca MD LAB BLOOD ORDERABLES Final Re sult Performing Organization Address [facility] Co de Phone Number [facility] Department [place] [address] * (ABNORMAL) CBC with auto differential (10/22/2024 9:04 AM CDT) Pathologist [facility] WBC 4.24 3.80 - 9.90 K/cumm Comment:Testing performed by : [facility] Heme Lab, [address] [place] [phone] Hgb 12.2 11.9 - 15.5 g/dL [facility] Comment:Testing performed by : [facility] Heme Lab, [address] [place] [phone] Hct 34.8(L) 35.6 - 45.5 % [facility] Comment:Testing performed by : [facility] Heme Lab, [address] [place], [place] [phone] Plt 161 150 - 400 K/cumm [facility] Comment:Testing performed by : [facility] Heme Lab, [address] [place] [address] MPV 7.9 6.8 - 10.4 fL [facility] Comment:Testing performed by : [facility] Heme Lab, [address] [place], [place] [phone] RBC 3.92 3.90 - 5.20 M/cumm G[facility]A [facility] Comment:Testing performed by : [facility] Heme Lab, [address] [place] [address] MCV 88.7 81.3 - 96.4 fL [facility] Comment:Testing performed by : [facility] Heme Lab, [address] [place], [place] [phone] MCH 31.1 27.1 - 33.3 pg [facility] Comment:Testing performed by : [facility] Heme Lab, [address] [place] [address] MCHC 35.0 32.3 - 35.7 g/dL G[facility]RIE[facility]A [facility] Comment:Testing performed by : [facility] Heme Lab, [address] [place] [address] RDW CV 13.0 11.1 - 14.9 % [facility] Comment:Testing performed by : [facility]e Lab, [address] [place] [address] NRBC abs 0.00 0.00 - 0.01 K/cumm [facility] Comment:Testing performed by : [facility]e Lab, [address] [place] [address] Blood 10/22/2024 9:04 AM CDT 10/22/2024 9:08 AM CDT Tyron Roca MD LAB BLOOD ORDERABLES Final Re sult [facility] Department [place] [address] * Uric acid (10/22/2024 9:04 AM CDT) Pathologist [facility] Uric acid 3.1 2.5 - 7.0 mg/dL Blood 10/22/2024 9:04 AM CDT 10/22/2024 9:11 AM CDT Tyron Roca MD LAB BLOOD ORDERABLES Final Re sult Performing Organization Address [facility] Co de Phone Number [facility] Department [place] [address] * Lipase (10/22/2024 9:04 AM CDT) [facility] Lipase 37 10 - 99 Units/L Blood 10/22/2024 9:04 AM CDT 10/22/2024 9:11 AM CDT Tyron Roca MD LAB BLOOD ORDERABLES Final Re sult Performing Organization Address [facility] Co de Phone Number [facility] Department [place] [address] * Lactate dehydrogenase (LD) (10/22/2024 9:04 AM CDT) [facility] Lactate dehydrogenase (LDH) 161 100 - 250 Units/L Blood 10/22/2024 9:04 AM CDT 10/22/2024 9:11 AM CDT Tyron Roca MD LAB BLOOD ORDERABLES Final Re sult Performing Organization Address [facility] de Phone Number [facility] [place] [address] * (ABNORMAL) Ferritin (10/22/2024 9:04 AM CDT) [facility] Ferritin 10(L) 13 - 150 ng/mL Blood 10/22/2024 9:04 AM CDT 10/22/2024 9:11 AM CDT us Tyron Roca MD LAB BLOOD ORDERABLES Final Re sult [facility] [place] [address] * (ABNORMAL) Comprehensive metabolic panel (10/22/2024 9:04 AM CDT) Sodium 138 135 - 145 mmol/L Potassium, pl 5.6(H) 3.3 - 4.9 mmol/L [facility] Chloride 105 97 - 110 mmol/L [facility] CO2 27 22 - 32 mmol/L [facility] Anion gap 6 2 - 15 mmol/L [facility] BUN 18 6 - 25 mg/dL [facility] Creatinine 0.96 0.60 - 1.10 mg/dL [facility] Glucose 97 70 - 199 mg/dL [facility] Comment: Interpretive Data Fasting glucose >/= 126 [...] 2022. Calcium 9.1 8.5 - 10.3 mg/dL [facility] Bilirubin, total 1.5(H) 0.1 - 1.2 mg/dL [facility] Protein, pl 6.9 6.5 - 8.5 g/dL [facility] Albumin 4.4 3.5 - 5.0 g/dL [facility] Alk phos 35(L) 40 - 130 Units/L [facility] ALT 10 7 - 45 Units/L [facility] AST 17 10 - 45 Units/L [facility] Blood 10/22/2024 9:04 AM CDT 10/22/2024 9:11 AM CDT Tyron Roca MD LAB BLOOD ORDERABLES Final Re sult [facility] HARK[facility] Department [place] [address] * Screening Mammogram Bilateral W Theo W [...] finding in either breast. us Kim Chaparro FRONT END LOADER DRIVER IMG MAMMO PROCEDURES Final Resul t * Colonoscopy (10/28/2023 3:15 PM CDT) Anatomical Region Laterality Modality Other Narrative Procedure Note Melva Lim MD - 10/28/2023 3:15 PM CDT [facility] Patient Name: Angelique Yeboah Procedure Date: 10/28/2023 3:15 PM Date of : 1975 Admit Type: Outpatient Age: 48 Gender: Female Attending MD: Melva Lim M.D. Room: [facility] ENDOSCOPY ROOM 8 Note Status: Finalized [...] scope was passed under direct vision.The CF [id number] endoscope was introduced through the anus and advanced to the terminal ileum. The colonoscopy was performed without difficulty. The quality of the bowel preparation was evaluatedusing the BBPS (Ponca Bowel Preparation Scale) withscores of: Right Colon [...] Most Recently Relevant to Health Maintenance Insurance [employer] [facility] [id number] [place] ACCESS CHOICE Advance Directives For more information, please contact: [phone] * Full Code (Latest Code Status on File) Date Activated Date Inactivated Comments 10/28/2023 2:10 PM 10/28/2023 8:23 PM * Full Code Date Activated Date Inactivated Comments 10/27/2020 8:29 PM 10/30/2020 8:50 PM Care Teams Fire Engine Operator Relationship Specialty Start Date End Date Kim Chaparro NP [address] [facility] [address] [place] [address] PCP - General Family Medicine 09/28/23 Tyron Roca MD Consulting Physician Medical Oncology 10/30/20
--- OUTSIDE RECORDS SUMMARY | 2025-01-11 10:16 | XMS_ITS | Encounter Summary ---
Author Organization [facility] Address [address] [place] [address] Phone Care Team Providers Care Ict Help Desk Officer Name Role Phone Tyron Roca MD Unavailable [phone] Morgan Palacio MD Unavailable [phone] Itz Love MD Unavailable [phone] Karlos Lam MD Primary Care Provider [phone] Francis Cornell MD Primary Care Provider [phone] Francis Cornell MD Primary Care Provider Rosalie Rico NP Primary Care Provider [phone] Encounter Details Date Type Department Care Team (Latest Contact Info) Description 05/19/2021 Orders Only [facility] Scanning, Provider [...] Procedure Name Priority Date/Time Associated Diagnosis Comments SCAN - LABS 05/19/2021 documented in this encounter Results * SCAN - LABS (05/19/2021) us Provider Scanning Edited Result - Final documented in this encounter Visit Diagnoses Not on filedocumented in this encounter Additional Health Concerns Infection Onset Date Last Indicated Resolved Time COVID: Suspected 03/23/2022 03/23/2022 03/23/2022 11:00 AM CDT COVID: Suspected 09/27/2022 09/27/2022 09/27/2022 11:50 AM CDT documented as of this encounter Care Teams Ict Help Desk Officer Relationship Specialty Start Date End Date Karlos Lam MD [address] [place] [address] PCP - General Family Medicine 01/22/21 11/10/22 Francis Cornell MD [address] [place] [address] PCP - General Family Medicine 11/11/22 05/01/23 Francis Cornell MD [address] [place] [address] PCP - General Family Medicine 05/02/23 09/27/23 Rosalie Rico NP [address] [address] PCP - General Family Medicine 09/28/23 Tyron Roca MD Consulting Physician Medical Oncology 10/30/20 Morgan Palacio MD [address] [id number] Referring Physician Hematology 11/11/20 09/27/23 Itz Love MD [address] [place] [address] Referring Physician Family Practice 11/11/20 09/27/23 documented as of this encounter
--- OUTSIDE RECORDS SUMMARY | 2025-01-11 10:16 | XMS_ITS | Encounter Summary ---
Author Organization [facility] Address [address] [place] [address] Phone Care Team Providers Care Integrated Circuits Inspector Name Role Phone Tyron Roca MD Unavailable [phone] Morgan Palacio MD Unavailable [phone] Itz Love MD Unavailable [phone] Karlos Lam MD Primary Care Provider [phone] Francis Cornell MD Primary Care Provider Francis Cornell MD Primary Care Provider [phone] Rosalie Rico NP Primary Care Provider [phone] Encounter Details Date Type Department Care Team (Latest Contact Info) Description 10/06/2021 Orders Only [facility] Scanning, Provider Social History Tobacco Use Types Packs/Day Years Used Date Smoking Tobacco: Never Smokeless Tobacco: Never Alcohol Use Standard Drinks/Week Comments Yes 2 (1 standard drink = 0.6 oz pur e alcohol) AUDIT-C Answer Date Recorded Q1: How often do you have a drink containing alc ohol? 2-3 times a week 08/14/2021 Q2: How many drinks containi ng alcohol do you have on a typical day when you are drinking? 1 or 2 08/14/2021 Q3: How often do you have si x or more drinks on one occasion? Never 08/14/2021 PHQ-2 Answer Date Recorded PHQ-2 Total Score (If total score is 3 or more points, staff should administer the PHQ-9) 2 08/14/2021 Comments Unknown Sex and Gender Information Value [...] Date/Time Associated Diagnosis Comments SCAN - LABS 10/06/2021 documented in this encounter Results * SCAN - LABS (10/06/2021) us Provider Scanning Edited Result - Final documented in this encounter Visit Diagnoses Not on filedocumented in this encounter Additional Health Concerns Infection Onset Date Last Indicated Resolved Time COVID: Suspected 03/23/2022 03/23/2022 03/23/2022 11:00 AM CDT COVID: Suspected 09/27/2022 09/27/2022 09/27/2022 11:50 AM CDT documented as of this encounter Care Teams Integrated Circuits Inspector Relationship Specialty Start Date End Date Karlos Lam MD [address] [place] [address] PCP - General Family Medicine 01/22/21 11/10/22 Francis Cornell MD [address] [place] [address] PCP - General Family Medicine 11/11/22 05/01/23 Francis Cornell MD [address] [place] [address] PCP - General Family Medicine 05/02/23 09/27/23 Rosalie Rico NP [address] [address] PCP - General Family Medicine 09/28/23 Tyron Roca MD Consulting Physician Medical Oncology 10/30/20 Morgan Palacio MD [address] [id number] Referring Physician Hematology 11/11/20 09/27/23 Itz Love MD [address] [place] [address] Referring Physician Family Practice 11/11/20 09/27/23 documented as of this encounter
--- OUTSIDE RECORDS SUMMARY | 2025-01-11 10:16 | XMS_ITS | Clinical Summary ---
Author Organization [facility] Natalya Ceballos Address [address] [place] [address] Care Team Providers Care Sheet Metal Fabricator Name Role Phone Max Frederick MD Primary Care Provider [phone] Allergies Active Allergy Reactions Criticality Noted Date Comments Cephalexin Hives High 10/24/2020 Medications spironolactone (ALDACTONE) 50 mg tablet Take 50 mg by mouth daily. For skin not BP Active buPROPion HCL (WELLBUTRIN XL) 300 mg Extended Release 24 hour tablet Take 300 mg by mouth daily in the morning. Active buPROPion HCL (WELLBUTRIN XL) 150 mg Extended Release 24 hour tablet Take 150 mg by mouth daily in the morning. Active Lactobacillus acidophilus (FLORAJEN ACIDOPHILUS ORAL) Take by mouth. Activ e calcium carbonate + vitamin D (CALTRATE+D) 600 mg(1,500mg) -400 unit Tablet Take by mouth. Act anastacio fish oil-omega-3 fatty acids 340-1,000 mg Capsule Take 1 Capsule by mouth daily. Active c.vinegr/ap.pect /gymn/B6/min32 (APPLE CIDER VINEGAR DIET ORAL) Take by mouth. Activ e fluticasone propionate (FLONASE) 50 mcg/spray [place], Suspension nasal inhaler Administer 2 Sprays in each nostril daily. Active hydrOXYzine HCL (ATARAX) 25 mg tablet Take 25 mg by mouth 3 times daily as needed for Itching. Active acetaminophen (TYLENOL) 500 mg tablet Take 500 mg by mouth every 6 hours as needed. 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/24/2020 Family History Medical History Relation Name Comments Heart Disease Mother Relation Name Status Comments Brother Alive Daughter Alive Father Alive Mother Alive Sister Alive Son 1 Alive Son 2 Alive Social History Tobacco Use Types Packs/Day Years Used Date Smoking Tobacco: Never Smokeless Tobacco: Never Alcohol Use Standard Drinks/Week Comments Yes 0 (1 standard drink = 0.6 oz pur e alcohol) oc Comments No Sex and Gender Information Value Date Recorded Sex Assigned at Not on file Legal Sex Female 4:01 PM CDT Gender Identity Not on file Sexual Orientation Not on file Last Filed Vital Signs Vital Sign Reading Time Taken Comments Blood Pressure 117/80 10/24/2020 1:49 PM CDT Pulse 92 10/24/2020 1:49 PM CDT Temperature 37.2 C (98.9 F) 10/24/2020 1:49 PM CDT Respiratory Rate - - Oxygen Saturation 97% 10/24/2020 1:49 PM CDT Inhaled Oxygen Concentration - - Weight 71.8 kg (158 lb 6.4 oz) 10/24/2020 1:49 P M CDT Height 167.6 cm (5' 6) 10/24/2020 1:49 PM CDT Body Mass Index 25.57 10/24/2020 1:49 PM CDT Plan of Treatment Health Maintenance Due Date Last Done Comments DTAP/TDAP/TD VACCINES (1 - Tdap) 02/19/1996 HEPATITIS B VACCINES (1 of 3 - 19+ 3-dose series) 02/19/1996 07/01/2003, 05/22/2003 HPV/Cotest (21-29) 1998 CERVICAL CANCER SCREENING 2007 HPV/Cotest (30-65) 2007 PAP SMEAR 2007 BREAST CANCER SCREENING 2017 COLORECTAL SCREENING 2022 Colorectal Cancer Screening 2022 FIT-DNA Q 3 years 2022 FIT/FOBT Q 1 year 2022 Flex Sig/CT Colonography Q 5 years 2022 COVID-19 Vaccine ( - 2023-2 5 season) 2024 05/13/2021, 07/25/2020, 06/26/2020 INFLUENZA VACCINE (#1) 2025 , 03/26/2021, 03/31/2020, Additional history exists Care Teams Sheet Metal Fabricator Relationship Specialty Start Date End Date Max Frederick MD [address] [place] [id number] PCP - General Family Practice 10/24/20
--- OUTSIDE RECORDS SUMMARY | 2025-01-11 10:16 | XMS_ITS ---
Author Organization [facility] Address [address] [place] [address] Phone Care Team Providers Care Play Leader Name Role Phone Tyron Roca MD Unavailable [phone] Rosalie Rico NP Primary Care Provider [phone] Active Problems Patient Care Coordination No te [...] be Resolved Before Discharge Living Situation/Distance from [place], [place] (1 hr) Discharge To Home Caregiver Requests sent to Case Management and/or Medical Assistants Dasatinib to [employer]. $0 copay. Picked up 10/30 and given to patient. Local Oncologist contact Local labs on 11/[address] [facility] Walk in/no appt needed Post-Discharge Follow-up 11/10 (per Abelino) Consult requested Televisit Consent Miscellaneous Notes: 10/28 BmBx today. Experimental Plastics Fabricator c/s for bleeding. Von Willebrand factor pending. Problem Noted Date Diagnosed Date Chronic iron deficiency anemia 01/09/2024 Colon cancer screening 09/29/2023 Drug rash 11/11/2022 Chemotherapy-induced neutropenia 08/26/2021 Assessment & Plan (09/28/2023 9:00 AM CDT): Continues following with Dr Uy Recurrent major depressive disorder, in full rem [...] daily Assessment & Plan (08/19/2021 9:17 AM STAKE DRIVER): Patient reports that in general her mood [...] 10/27/2020 Assessment & Plan (08/19/2021 9:19 AM STAKE DRIVER): Labs reviewed today; patient noted to be [...] and troponins -> if any concern for UT, will need urgent pheresis -Given splenomegaly and [...] desvenlafaxine 25 mg daily Patient to contact [facility] to reengage with counseling Assessment & [...] supplement. Assessment & Plan (08/19/2021 9:19 AM STAKE DRIVER): Patient continues to have anemia secondary to [...] (10/28/2020): Added automatically from request for surgery [id number] Assessment & Plan (10/30/2020 3:08 PM CDT): -2/2 recent LEEP in setting of platelet malfunction 2/2 ? Acquired Von Willebrand factor. Von Willebrand factor activity wnl -chemical process analyst consulted and following -s/p vaginal packing 10/28 with significant soaking that prompted chemical process analyst to take pt to the OR and do EUA, cautery, and vaginal packing -voiding trail ongoing and successful thus far - no more bleeding Current Treatment and Therapy Plans iron dextran (INFED) infusion* Plan Start Date:01/11/2024 Plan Provider:Tyron Roca MD Linked Problems Chronic iron deficiency anem iaCML (chronic myelocytic leukemia) (HCC) Treatment Medications No medications scheduled. Ponatinib Daily - 28 Day Cycles - CML* Plan Start Date:10/02/2022 Plan Provider:Tyron Roca MD Linked Problems CML (chronic myelocytic leuk emia) (HCC) Treatment Medications Current Day (Day 1 , Cycle 18 - Planned for 01/14/2025) Next Day (Day 1, Cycle 19 - Planned for 02/11/2025) PONATinib (ICLUSIG) PONATinib (ICLUSIG) 15 mg ta blet PONATinib (ICLUSIG) 15 mg tablet Past Treatment and Therapy Plans BMT/ONC IP BLOOD PRODUCTS Plan Name Start Date Discontinue Date Treatment Medications Discontinue Reason Plan Provider COVID-19 - BMT (CMV NEGATIVE/UNTESTED) ADULT BLOOD AND PLATELET ADMINISTRATION FOR INPATIENT 10/27/2020 09/13/2023 No medications scheduled. Automatic discontinuation of dormant plans Tyron Roca MD Blood Products Plan Name Start Date Discontinue Date Treatment Medications Discontinue Reason Plan Provider COVID-19 - BMT (CMV NEGATIVE/UNTESTED) ADULT BLOOD AND PLATELET ADMINISTRATION FOR OUTPATIENT 09/24/2021 09/13/2023 No medications scheduled. Automatic discontinuation of dormant plans Tyron Roca MD Oncology Chemotherapy Treatment Plan Name Start Date Discontinue Date Treatment Medications Discontinue Reason Plan Provider Cycles Dasatinib Daily - CML 09/07/2021 10/10/2023 daSATinib (SPRYCEL) Therapy Complete Tyron Roca MD 2 of 3 cycles completed Nilotinib Twice Daily - CML 1 06/17/2021 nilotinib HCl (TASIGNA) Toxicity/Compl ication Tyron Roca MD Treatment not started Oncology Treatment (2) Plan Name Start Date Discontinue Date Treatment Medications Discontinue Reason Plan Provider Cycles Bosutinib PO Daily - CML 1 06/17/2021 bosutinib (BOSULIF) Toxicity/Compl ication Tyron Roca MD 1 of 12 cycles started Oncology Treatment (3) Plan Name Start Date Discontinue Date Treatment Medications Discontinue Reason Plan Provider Cycles [id number] - [facility] - 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
[2025-01-11 10:28] LABS: Hematocrit 34.2 % (35.0-49.0); Hemoglobin 11.8 g/dL (12.0-15.0); Immature Granulocyte Percent A 0.4 % (0.0-0.0); Lymphocytes Absolute Auto 1.84 K/mm3 (1.10-4.50); Mean Corpuscular HGB Conc 34.5 g/dL (32-36); Mean Corpuscular Hemoglobin 32.2 pg (27.0-31.0); Mean Corpuscular Volume 93.4 fL (78.0-102.0); Nucleated Red Blood Cells Absolute Auto 0.00 K/mm3 (0.00-0.00); Nucleated Red Blood Cells Perc 0.0 % (0-0.0); Platelet Count Result 169 K/mm3 (150-420); Red Blood Count 3.66 M/mm3 (4.20-5.40); White Blood Count 5.0 K/mm3 (4.8-10.8)
[2025-01-11 10:46] LABS: Alanine Aminotransferase 14 U/L (6-35); Albumin Level 4.1 g/dL (3.5-5.1); Alkaline Phosphatase 31 U/L (38-126); Anion Gap 2 mmol/L (4-12); Aspartate Amino Transferase 26 U/L (14-36); Bilirubin,Total 1.7 mg/dL (0.2-1.3); Blood Urea Nitrogen 17 mg/dL (7-17); CRP < 0.5 mg/dL (<1.0); Calcium 8.7 mg/dL (8.4-10.2); Carbon Dioxide 29 mmol/L (22-30); Chloride 106 mmol/L (98-107); Estimated Glomerular Filt Rate > 60; Glucose 86 mg/dL (65-110); Lipase 113 U/L (23-300); Osmolality Calculated 284 mOsm/kg (285-295); Potassium 4.2 mmol/L (3.4-5.0); Sodium 137 mmol/L (137-145); Total Protein 6.2 g/dL (6.3-8.2)
[2025-01-11 11:15] LABS: Thyroid Stimulating Hormone Reflex 1.700 uIU/mL (0.465-4.68)
[2025-01-11 11:50] LABS: Vitamin B12 365.0 pg/mL (239-931)
[2025-01-11 14:07] LABS: Cholesterol 165 mg/dL (0-200); HDL Direct 43 mg/dL; Triglycerides 71 mg/dL (<150)
== END 2025-01-11 10:09 | disposition home or self-care (01) ==
PROVIDERS: PCP Family Medicine; Visit Provider Family Medicine
DX: E53.8 Deficiency of other specified B group vitamins (principal); R10.9 Unspecified abdominal pain; E03.9 Hypothyroidism, unspecified; R10.13 Epigastric pain
CPT/HCPCS: 36415; 80053; 80061; 82607; 82746; 83690; 84443; 85025; 86140

== ENCOUNTER 2025-01-17 08:04 | Outpatient (CLI) | payer OTHER, SELFPAY ==
--- NOTE | ~2025-01-17 | MM_ITS ---
EXAMINATION: MM scrn carissa implant BI w briseyda HISTORY: Screening TECHNIQUE: Craniocaudal and mediolateral oblique 3-D tomosynthesis images with implant displacement a nd synthetic 2-D images were generated. Craniocaudal and mediolateral oblique views of the breasts wi thout implant displacement were obtained using full field digital mammography. CAD analysis was submi tted and interpreted. COMPARISON: Comparison to multiple prior studies sequentially, with oldest reviewed study dated 03/2018. BREAST PARENCHYMAL COMPOSITION: Dense: The breasts are heterogeneously dense, which may obscure small masses FINDINGS: There is no evidence of suspicious mass, calcification, or architectural distortion to sugg est malignancy in either breast. There has been no suspicious interval change. IMPRESSION: 1. No mammographic evidence of malignancy. 2. Recommend routine screening mammography in one year. BI-RADS Category 1: Negative Reviewed, dictated and finalized at location B.
--- OUTSIDE RECORDS SUMMARY | 2025-01-17 08:08 | XMS_ITS ---
Author Organization [facility] Address [address] [place] [address] Phone Care Team Providers Care Medical Education Coordinator Name Role Phone Tyron Roca MD Unavailable [phone] Josué Roman DO Primary Care Provider Active Problems Patient Care Coordination No te Formatting of this note is d ifferent from the original. BMT Inpatient Care Coordination Overview Diagnosis Possible CML - path pending Treatment Plan Dasatinib Clinical Trial Inpatient Floor 9800 Reason for Admission New leuk Transplant/IEC Planning BMT/IEC Plan Patient Education Completed Consents Done IDRi Insurance Approvals/Issues Discharge Planning Anticipated Discharge Date 10/30 Issue to be Resolved Before Discharge Living Situation/Distance from [place], [place] (1 hr) Discharge To Home Caregiver Requests sent to Case Management and/or Medical Assistants Dasatinib to [employer]. $0 copay. Picked up 10/30 and given to patient. Local Oncologist contact Local labs on 11/04 at [facility] Walk in/no appt needed Post-Discharge Follow-up 11/10 (lorraine Roca) Consult requested Televisit Consent Miscellaneous Notes: 10/28 BmBx today. Molding Line Operator c/s for bleeding. Von Willebrand factor pending. [...] daily Assessment & Plan (08/19/2021 9:17 AM ACQUISITIONS ASSISTANT): Patient reports that in general her mood [...] 10/27/2020 Assessment & Plan (08/19/2021 9:19 AM ACQUISITIONS ASSISTANT): Labs reviewed today; patient noted to be [...] and troponins -> if any concern for ME, will need urgent pheresis -Given splenomegaly and [...] desvenlafaxine 25 mg daily Patient to contact ENGINEERING FACULTY MEMBER to reengage with counseling Assessment & Plan [...] supplement. Assessment & Plan (08/19/2021 9:19 AM ACQUISITIONS ASSISTANT): Patient continues to have anemia secondary to [...] (10/28/2020): Added automatically from request for surgery [id number] Assessment & Plan (10/30/2020 3:08 PM CDT): -2/2 recent LEEP in setting of platelet malfunction 2/2 ? Acquired Von Willebrand factor. 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
--- OUTSIDE RECORDS SUMMARY | 2025-01-17 08:08 | XMS_ITS | Referral Summary ---
Author Organization [facility] Address [address] [facility] [address] [place] [address] Phone Care Team Providers Care Geophysical Party Chief Name Role Phone Tyron Roca MD Unavailable Josué Roman DO Primary Care Provider Encounters Date Type Department Care Team Description 01/14/2025 Telephone [facility] Gastroenterology [address] [facility] Advanced Medicine 12th [place] [address] [place] [address] Thuy Arrieta 01/03/2025 Telephone [facility] Bone Marrow Transplant [facility] Floor 6 [place] [id number] Tyron Roca MD 01/01/2025 Orders Only [facility] Bone Marrow Transplant [facility] Floor 6 [place] [id number] Elma Su NP CML (chronic myelocytic leukemia) (HCC) (Primary Dx) 01/01/2025 Telephone [facility] Bone Marrow Transplant [facility] Floor 6 [place] [address] Karen Lopez, GRANT 12/26/2024 Telephone [facility] Bone Marrow Transplant [facility] Floor 6 [place] [address] Karen Lopez, GRANT 10/31/2024 11:36 AM CDT - 10/31/2024 2:44 PM CDT Hospital Encounter [facility] Advanced Medicine ([facility]) [address] [place] [address] Chronic iron deficiency anemia (Primary Dx); CML (chronic myelocytic leukemia) (HCC) Discharge Disposition: Discharge to home or self care 10/22/2024 2:40 PM CDT - 10/22/2024 11:59 PM CDT Hospital Encounter [facility] [address] [place] [address] CML (chronic myelocytic leukemia) (HCC) Discharge Disposition: Discharge to home or self care 10/22/2024 2:30 PM CDT Lab [facility] Outpatient Lab at [address] [address] Chronic iron deficiency anemia (Primary Dx) 10/22/2024 8:45 AM CDT Lab [facility] - Lab Collection [address] [place] [address] 6 [place] [address] CML (chronic myelocytic leukemia) (HCC) 10/22/2024 8:30 AM CDT Lab [facility] Oncology Lab [address] [place] [address] 6 [place] [address] CML (chronic myelocytic leukemia) (HCC) 10/22/2024 9:30 AM CDT Office Visit [facility] Bone Marrow Transplant [address] [place] [address] 6 [place] [address] Alice Pacheco NP CML (chronic [...] be Resolved Before Discharge Living Situation/Distance from [place], [place] (1 hr) Discharge To Home Caregiver Requests sent to Case Management and/or Medical Assistants Dasatinib to [facility]. $0 copay. Picked up 10/30 and given to patient. Local Oncologist contact Local labs on 11/04 at [facility] Walk in/no appt needed Post-Discharge Follow-up 11/10 (lorraine Roca) Consult requested Televisit Consent Miscellaneous Notes: 10/28 BmBx today. Purchasing Buyer c/s for bleeding. Von Willebrand factor pending. [...] daily Assessment & Plan (08/19/2021 9:17 AM ADMINISTRATIVE SALES ASSISTANT): Patient reports that in general her [...] 10/27/2020 Assessment & Plan (08/19/2021 9:19 AM ADMINISTRATIVE SALES ASSISTANT): Labs reviewed today; patient noted to [...] and troponins -> if any concern for VA, will need urgent pheresis -Given splenomegaly and [...] desvenlafaxine 25 mg daily Patient to contact [facility] to reengage with counseling Assessment & Plan [...] supplement. Assessment & Plan (08/19/2021 9:19 AM ADMINISTRATIVE SALES ASSISTANT): Patient continues to have anemia secondary [...] (10/28/2020): Added automatically from request for surgery [id number] Assessment & Plan (10/30/2020 3:08 PM CDT): -2/2 recent LEEP in setting of platelet malfunction 2/2 ? Acquired Von Willebrand factor. Von Willebrand factor activity wnl -castables worker consulted and following -s/p vaginal packing 10/28 with significant soaking that prompted castables worker to take pt to the OR and [...] MD LAB BLOOD ORDERABLES Final Re sult [facility] [place] [address] * Differential, auto (10/31/2024 11:55 AM CDT) Pathologist [facility] Neutrophil abs 3.66 1.50 - 6.50 K/cumm Imm gran abs 0.02 0.00 - 0.10 K/cumm [facility] Lymphocyte abs 1.30 0.80 - 3.30 K/cumm [facility] Monocyte abs 0.33 0.20 - 0.80 K/cumm [facility] Eosinophil abs 0.11 0.00 - 0.50 K/cumm [facility] Basophil abs 0.04 0.00 - 0.10 K/cumm [facility] Neutrophil pct 67.1 % [facility] Comment: Interpretive Data Percent cell count reference ranges are not reported, since discordance with absolute values may lead to misinterpretation of CBC data. Current Interpretive Data was last revised on 2017. Imm gran pct 0.4 % [facility] Comment: Interpretive Data Percent cell count reference ranges are not reported, since discordance with absolute values may lead to misinterpretation of CBC data. Current Interpretive Data was last revised on 2017. Lymphocyte pct 23.8 % [facility] Comment: Interpretive Data Percent cell count reference ranges are not reported, since discordance with absolute values may lead to misinterpretation of CBC data. Current Interpretive Data was last revised on 2017. Monocyte pct 6.0 % [facility] Comment: Interpretive Data Percent cell count reference ranges are not reported, since discordance with absolute values may lead to misinterpretation of CBC data. Current Interpretive Data was last revised on 2017. Eosinophil pct 2.0 % [facility] Comment: Interpretive Data Percent cell count reference ranges are not reported, since discordance with absolute values may lead to misinterpretation of CBC data. Current Interpretive Data was last revised on 2017. Basophil pct 0.7 % [facility] Comment: Interpretive Data Percent cell count reference ranges are not reported, since discordance with absolute values may lead to misinterpretation of CBC data. Current Interpretive Data was last revised on 2017. Blood 10/31/2024 11:5 5 AM CDT 10/31/2024 12:06 PM CDT Tyron Roac MD LAB BLOOD ORDERABLES Final Re sult Performing Organization Address City[facility]/ZIP Co de Phone Number [facility] Department [place] [address] * (ABNORMAL) CBC with auto differential (10/31/2024 11:55 AM CDT) WBC 5.46 3.80 - 9.90 K/cumm Hgb 11.7(L) 11.9 - 15.5 g/dL [facility] Hct 33.5(L) 35.6 - 45.5 % [facility] Plt 152 150 - 400 K/cumm [facility] MPV 9.7 9.1 - 12.3 fL [facility] RBC 3.90 3.90 - 5.20 M/cumm [facility] MCV 85.9 81.3 - 96.4 fL [facility] MCH 30.0 27.1 - 33.3 pg [facility] MCHC 34.9 32.3 - 35.7 g/dL [facility] RDW CV 12.6 11.1 - 14.9 % [facility] RDW SD 38.5 35.7 - 48.1 fL [facility] NRBC abs 0.00 0.00 - 0.01 K/cumm [facility] Blood 10/31/2024 11:5 5 AM CDT 10/31/2024 12:06 PM CDT Tyron Roca MD LAB BLOOD ORDERABLES Final Re sult Performing Organization Address [facility]/ZIP Co de Phone Number [facility] [place] [address] * Comprehensive metabolic panel (10/31/2024 11:55 AM CDT) Sodium 140 135 - 145 mmol/L Potassium, pl 4.3 3.3 - 4.9 mmol/L [facility] Chloride 103 97 - 110 mmol/L [facility] CO2 31 22 - 32 mmol/L [facility] Anion gap 6 2 - 15 mmol/L [facility] BUN 13 6 - 25 mg/dL [facility] Creatinine 0.93 0.60 - 1.10 mg/dL [facility] Glucose 92 70 - 199 mg/dL [facility] Comment: Interpretive Data Fasting glucose >/= 126 [...] 2022. Calcium 9.5 8.5 - 10.3 mg/dL [facility] Bilirubin, total 0.9 0.1 - 1.2 mg/dL [facility] Protein, pl 7.0 6.5 - 8.5 g/dL [facility] Albumin 4.5 3.5 - 5.0 g/dL [facility] Alk phos 43 40 - 130 Units/L [facility] ALT 13 7 - 45 Units/L [facility] AST 18 10 - 45 Units/L [facility] Blood 10/31/2024 11:5 5 AM CDT 10/31/2024 12:06 PM CDT us Tyron Roca MD LAB BLOOD ORDERABLES Final Re sult [facility] Department [place] [address] * Potassium, whole blood (10/22/2024 2:40 PM CDT) Pathologist [facility] Potassium, bld 4.6 3.3 - 4.9 mmol/L [...] LAB BLOOD ORDERABLES Final Re sult [facility] [address] [place] [address] * (ABNORMAL) BCR::ABL1 PCR quantitative p210 (10/22/2024 9:04 AM CDT) [facility] BCR/ABL p210 Positive(A) [facility] BCR/ABL p210 % (IS) 0.13% [facility] BCR/ABL p210 Interpretation Positive: BCR::ABL1 major (p210) transcripts were detected. [facility] BCR/ABL p210 Specimen Blood [facility] BCR/ABL p210 Result Review Final report reviewed by: Angelina Diaz MS, MB([facility]) District Fire Management Officer, on 10/23/2024 13:21:02 CDT. [facility] Comment: Interpretive Data A summary of previous BCR::ABL1 major quantitative RT-PCR results for this patient performed in the [facility] Molecular Diagnostics Lab may be found as a cumulative laboratory report in the Results Review section of the Medical Record. Method: The quantitative BCR::ABL1 assay is performed on the GeneXpert (Snappy shuttle) platform. RNA is extracted, converted to cDNA, [...] complexity clinical laboratory testing. Literature References: Francisco Vinson, Erick L, Jose N, et al. Desirable performance characteristics for BCR-ABL measurement on an international reporting scale to allow consistent interpretation of individual patient response and comparison of response rate between clinical trials. Blood 2008;113:8120-3212. Catina HUA, Donald P, Rolando P, et al. Establishment of the first World Health Organization International Genetic Reference Panel for quantification of BCR-ABL mRNA. Blood 2010;116:i513-905. GeneXpert BCR-ABL V2 Package Insert [id number], Rev B (May 2016). Xpert BCR-ABL Monitor, [id number], Rev A, November 2010. This test was performed at: [facility], [facility], [place]#[id number], Gisele Colon, Ph.D., [place], [address], [place] Current interpretive data was last revised 2023. Blood 10/22/2024 9:04 AM CDT 10/22/2024 12:23 PM CDT Alice Pacheco NP LAB GENETIC TESTING F inal Result Performing Organization Address [facility]/ZIP Co de Phone Number [facility] [place] [address] BJ * eGFR (10/22/2024 9:04 AM CDT) eGFR [...] ORDERABLES Final Re sult Performing Organization Address [facility]/ZIP Co de Phone Number [facility] Department [place] [address] * Differential, auto (10/22/2024 9:04 AM CDT) Neutrophil abs 1.96 1.50 - 6.50 K/cumm Comment:Testing performed by : [facility], [address] [place], [place] [phone] Lymphocyte abs 1.69 0.80 - 3.30 K/cumm [facility] Comment:Testing performed by : [facility], [address] [place], [place] [phone] Monocyte abs 0.35 0.20 - 0.80 K/cumm [facility] Comment:Testing performed by : [facility], [address] [place], [place] [id number] Eosinophil abs 0.19 0.00 - 0.50 K/cumm [facility] Comment:Testing performed by : [facility], [address] [place], [place] [id number] Basophil abs 0.05 0.00 - 0.10 K/cumm [facility] Comment:Testing performed by : [facility], [address] [place], [place] [phone] Neutrophil pct 46.2 % [facility] Comment: Interpretive Data Percent cell count reference ranges are not reported, since discordance with absolute values may lead to misinterpretation of CBC data. Current Interpretive Data was last revised on 2017. Testing performed by: [facility], [address] [place], [place] [phone] Lymphocyte pct 39.9 % [facility] Comment: Interpretive Data Percent cell count reference ranges are not reported, since discordance with absolute values may lead to misinterpretation of CBC data. Current Interpretive Data was last revised on 2017. Testing performed by: [facility], [address] [place] [phone] Monocyte pct 8.2 % [facility] Comment: Interpretive Data Percent cell count reference ranges are not reported, since discordance with absolute values may lead to misinterpretation of CBC data. Current Interpretive Data was last revised on 2017. Testing performed by: [facility], [address] [place] [phone] Eosinophil pct 4.5 % [facility] Comment: Interpretive Data Percent cell count reference ranges are not reported, since discordance with absolute values may lead to misinterpretation of CBC data. Current Interpretive Data was last revised on 2017. Testing performed by: [facility], [address] [place] [phone] Basophil pct 1.3 % [facility] Comment: Interpretive Data Percent cell count reference ranges are not reported, since discordance with absolute values may lead to misinterpretation of CBC data. Current Interpretive Data was last revised on 2017. Testing performed by: [facility], [address] [place] [phone] Blood 10/22/2024 9:04 AM CDT 10/22/2024 9:08 AM CDT Tyron Roca MD LAB BLOOD ORDERABLES Final Re sult Performing Organization Address [facility] Co de Phone Number [facility] [place] [address] * (ABNORMAL) Iron profile w/ IBC (10/22/2024 9:04 AM CDT) Pathologist [facility] Iron 36 35 - 145 mcg/dL TIBC 336 250 - 400 mcg/dL [facility] Transferrin saturation 11(L) 20 - 50 % [facility] Blood 10/22/2024 9:04 AM CDT 10/22/2024 9:11 AM CDT Tyron Roca MD LAB BLOOD ORDERABLES Final Re sult Performing Organization Address City[facility]/ZIP Co de Phone Number [facility] Department [place] [address] * (ABNORMAL) CBC with auto differential (10/22/2024 9:04 AM CDT) WBC 4.24 3.80 - 9.90 K/cumm Comment:Testing performed by : [facility], [address] [place] [phone] Hgb 12.2 11.9 - 15.5 g/dL [facility] Comment:Testing performed by : [facility], [address] [place], [place] [phone] Hct 34.8(L) 35.6 - 45.5 % [facility] Comment:Testing performed by : [facility], [address] [place] [address] Plt 161 150 - 400 K/cumm [facility] Comment:Testing performed by : [facility], [address] [place] [address] MPV 7.9 6.8 - 10.4 fL [facility] Comment:Testing performed by : [facility], [address] [place], [place] [phone] RBC 3.92 3.90 - 5.20 M/cumm [facility] Comment:Testing performed by : [facility], [address] [place] [address] MCV 88.7 81.3 - 96.4 fL [facility] Comment:Testing performed by : [facility], [address] [place] [address] MCH 31.1 27.1 - 33.3 pg [facility] Comment:Testing performed by : [facility], [address] [place] [address] MCHC 35.0 32.3 - 35.7 g/dL [facility] Comment:Testing performed by : [facility], [address] [place] [address] RDW CV 13.0 11.1 - 14.9 % [facility] Comment:Testing performed by : [facility], [address] [place] [address] NRBC abs 0.00 0.00 - 0.01 K/cumm [facility] Comment:Testing performed by : [facility], [address] [place] [address] Blood 10/22/2024 9:04 AM CDT 10/22/2024 9:08 AM CDT Tyron Roca MD LAB BLOOD ORDERABLES Final Re sult Performing Organization Address [facility] Co de Phone Number [facility] [place] [address] * Uric acid (10/22/2024 9:04 AM CDT) Uric acid 3.1 2.5 - 7.0 mg/dL Blood 10/22/2024 9:04 AM CDT 10/22/2024 9:11 AM CDT Tyron Roca MD LAB BLOOD ORDERABLES Final Re sult Performing Organization Address [facility] [place] [address] * Lipase (10/22/2024 9:04 AM CDT) Lipase 37 10 - 99 Units/L Blood 10/22/2024 9:04 AM CDT 10/22/2024 9:11 AM CDT Tyron Roca MD LAB BLOOD ORDERABLES Final Re sult Performing Organization Address [facility] de Phone Number [facility] [place] [address] * Lactate dehydrogenase (LD) (10/22/2024 9:04 AM CDT) Lactate dehydrogenase (LDH) 161 100 - 250 Units/L Blood 10/22/2024 9:04 AM CDT 10/22/2024 9:11 AM CDT Tyron Roca MD LAB BLOOD ORDERABLES Final Re sult Performing Organization Address [facility] Co de Phone Number [facility] [place] [address] * (ABNORMAL) Ferritin (10/22/2024 9:04 AM CDT) Pathologist [facility] Ferritin 10(L) 13 - 150 ng/mL Blood 10/22/2024 9:04 AM CDT 10/22/2024 9:11 AM CDT Tyron Roca MD LAB BLOOD ORDERABLES Final Re sult [facility] [place] [address] * (ABNORMAL) Comprehensive metabolic panel (10/22/2024 9:04 AM CDT) Pathologist [facility] Sodium 138 135 - 145 mmol/L Potassium, pl 5.6(H) 3.3 - 4.9 mmol/L [facility] Chloride 105 97 - 110 mmol/L [facility] CO2 27 22 - 32 mmol/L [facility] Anion gap 6 2 - 15 mmol/L [facility] BUN 18 6 - 25 mg/dL [facility] Creatinine 0.96 0.60 - 1.10 mg/dL [facility] Glucose 97 70 - 199 mg/dL [facility] Comment: Interpretive Data Fasting glucose >/= 126 [...] 2022. Calcium 9.1 8.5 - 10.3 mg/dL [facility] Bilirubin, total 1.5(H) 0.1 - 1.2 mg/dL [facility] Protein, pl 6.9 6.5 - 8.5 g/dL [facility] Albumin 4.4 3.5 - 5.0 g/dL [facility] Alk phos 35(L) 40 - 130 Units/L [facility] ALT 10 7 - 45 Units/L [facility] AST 17 10 - 45 Units/L [facility] Blood 10/22/2024 9:04 AM CDT 10/22/2024 9:11 AM CDT Tyron Roca MD LAB BLOOD ORDERABLES Final Re sult [facility] [place] [address] * Screening Mammogram Bilateral W Theo W [...] finding in either breast. us Kim Chaparro LAUNDRY TUB MAKER IMG MAMMO PROCEDURES Final Resul t * Colonoscopy (10/28/2023 3:15 PM CDT) Anatomical Region Laterality Modality Other Narrative Procedure Note Melva Lim MD - 10/28/2023 3:15 PM CDT [facility] Patient Name: Angelique Yeboah Procedure Date: 10/28/2023 3:15 PM Date of : 1975 Admit Type: Outpatient Age: 48 Gender: Female Attending MD: Melva Lim M.D. Room: [facility] ENDOSCOPY ROOM 8 Note Status: Finalized Procedure: [...] scope was passed under direct vision.The CF [id number] endoscope was introduced through the anus and advanced to the terminal ileum. The colonoscopy was performed without difficulty. The quality of the bowel preparation was evaluatedusing the BBPS (Bramwell Bowel Preparation Scale) withscores of: Right Colon [...] Genotyping (Cytology Component) (01/06/2023) Thin prep 01/06/2023 us Historical Provider LAB CYTOLOGY ORDERABLES F inal Result from Last 3 Months or Most Recently Relevant to Health Maintenance Insurance [employer] [facility] [id number] [place] AN[place] ACCESS CHOICE Advance Directives For more information, please contact: [phone] * Full Code (Latest Code Status on File) Date Activated Date Inactivated Comments 10/28/2023 2:10 PM 10/28/2023 8:23 PM * Full Code Date Activated Date Inactivated Comments 10/27/2020 8:29 PM 10/30/2020 8:50 PM Care Teams Geophysical Party Chief Relationship Specialty Start Date End Date Josué Roman DO [address] [place] [address] PCP - General Family Medicine 01/14/25 Tyron Roca MD Consulting Physician Medical Oncology 10/30/20
--- OUTSIDE RECORDS SUMMARY | 2025-01-17 08:08 | XMS_ITS | Encounter Summary ---
Author Organization [facility] Address [address] [place] [address] Phone Care Team Providers Care Inclusion Internship Name Role Phone Tyron Roca MD Unavailable [phone] Morgan Palacio MD Unavailable [phone] Itz Love MD Unavailable [phone] Karlos Lam MD Primary Care Provider [phone] Francis Cornell MD Primary Care Provider [phone] Francis Cornell MD Primary Care Provider [phone] Rosalie Rico NP Primary Care Provider [phone] Josué Roman DO Primary Care Provider Encounter Details Date Type Department Care Team (Latest Contact Info) Description 10/06/2021 Orders Only [facility] Scanning, Provider Social History Tobacco Use [...] documented as of this encounter Care Teams Inclusion Internship Relationship Specialty Start Date End Date Karlos Lam MD [address] [place] [address] PCP - General Family Medicine 01/22/21 11/10/22 Francis Cornell MD [address] [place] [address] PCP - General Family Medicine 11/11/22 05/01/23 Francis Cornell MD [address] [place] [address] PCP - General Family Medicine 05/02/23 09/27/23 Rosalie Rico NP [address] [address] PCP - General Family Medicine 09/28/23 01/13/25 Josué Roman DO [address] [place] [address] PCP - General Family Medicine 01/14/25 Tyron Roca MD Consulting Physician Medical Oncology 10/30/20 Morgan Palacio MD [address] [address] Referring Physician Hematology 11/11/20 09/27/23 Itz Love MD [address] [place] [address] Referring Physician Family Practice 11/11/20 09/27/23 documented as of this encounter
--- OUTSIDE RECORDS SUMMARY | 2025-01-17 08:08 | XMS_ITS | Clinical Summary ---
Author Organization [facility] Address [address] [place] [address] Phone Care Team Providers Care Mounter Saxophones Name Role Phone Tyron Roac MD Unavailable [phone] Josué Roman DO Primary Care Provider Allergies Active Allergy Reactions Criticality Noted Date [...] be Resolved Before Discharge Living Situation/Distance from [place], [place] (1 hr) Discharge To Home Caregiver Requests sent to Case Management and/or Medical Assistants Dasatinib to [employer]. $0 copay. Picked up 10/30 and given to patient. Local Oncologist contact Local labs on 11/[address] [facility] Walk in/no appt needed Post-Discharge Follow-up 11/10 (lorraine Roca) Consult requested Televisit Consent Miscellaneous Notes: 10/28 BmBx today. 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 Von Willebrand factor pending. [...] daily Assessment & Plan (08/19/2021 9:17 AM SNOW REMOVAL SUPERVISOR): Patient reports that in general her mood [...] 10/27/2020 Assessment & Plan (08/19/2021 9:19 AM SNOW REMOVAL SUPERVISOR): Labs reviewed today; patient noted to be [...] and troponins -> if any concern for ND, will need urgent pheresis -Given splenomegaly and [...] desvenlafaxine 25 mg daily Patient to contact [facility] to reengage with counseling Assessment & Plan [...] supplement. Assessment & Plan (08/19/2021 9:19 AM SNOW REMOVAL SUPERVISOR): Patient continues to have anemia secondary to [...] (10/28/2020): Added automatically from request for surgery [id number] Assessment & Plan (10/30/2020 3:08 PM CDT): -2/2 recent LEEP in setting of platelet malfunction 2/2 ? Acquired Von Willebrand factor. Von Willebrand factor activity wnl -dryer feeder consulted and following -s/p vaginal packing 10/28 with significant soaking that prompted dryer feeder to take pt to the OR and do EUA, cautery, and vaginal packing -voiding trail ongoing and successful thus far - no more bleeding Encounters Date Type Department Care Team Description 01/14/2025 Telephone [facility] [address] [facility] 12th [place] [address] [place] [address] Thuy Arrieta 01/03/2025 Telephone [facility] Floor 6 [place] [address] yTron Roca MD 01/01/2025 Orders Only [facility] Floor 6 [place] [address] Elma Su NP CML (chronic myelocytic leukemia) (HCC) (Primary Dx) 01/01/2025 Telephone [facility] [address] [place] [address] Floor 6 [place] [address] Karen Lopez RN 12/26/2024 Telephone [facility] [address] [place] [phone] Karen Lopez RN 10/31/2024 11:36 AM CDT - 10/31/2024 2:44 PM CDT Hospital Encounter [facility] ([facility]) [address] [place] [phone] Chronic iron deficiency anemia (Primary Dx); CML (chronic myelocytic leukemia) (HCC) Discharge Disposition: Discharge to home or self care 10/22/2024 2:40 PM CDT - 10/22/2024 11:59 PM CDT Hospital Encounter [address] [address] CML (chronic myelocytic leukemia) (HCC) Discharge Disposition: Discharge to home or self care 10/22/2024 2:30 PM CDT Lab [facility] Outpatient Lab at [address] [address] Chronic iron deficiency anemia (Primary Dx) 10/22/2024 9:30 AM CDT Office Visit [facility] [address] [place] [phone] Alice Pacheco NP CML (chronic myelocytic leukemia) (HCC) (Primary Dx) 10/22/2024 8:45 AM CDT Lab [facility] - Lab Collection [address] [place] [phone] CML (chronic myelocytic leukemia) (HCC) 10/22/2024 8:30 AM CDT Lab [facility] [address] [place] [phone] CML (chronic myelocytic leukemia) (HCC) from Last [...] BREAST IMMEDI ATE / DELAYED W/ TISSUE SELF STORAGE MANAGER CERVICAL BIOPSY W/ LOOP ELEC TRODE EXCISION [...] MD LAB BLOOD ORDERABLES Final Re sult [facility] Department [place] [address] * Differential, auto (10/31/2024 11:55 AM CDT) Neutrophil abs 3.66 1.50 - 6.50 K/cumm Imm gran abs 0.02 0.00 - 0.10 K/cumm [facility] Lymphocyte abs 1.30 0.80 - 3.30 K/cumm [facility] Monocyte abs 0.33 0.20 - 0.80 K/cumm [facility] Eosinophil abs 0.11 0.00 - 0.50 K/cumm [facility] Basophil abs 0.04 0.00 - 0.10 K[facility]cumm [facility] Neutrophil pct 67.1 % [facility] Comment: Interpretive Data Percent cell count reference ranges are not reported, since discordance with absolute values may lead to misinterpretation of CBC data. Current Interpretive Data was last revised on 2017. Imm gran pct 0.4 % [facility] Comment: Interpretive Data Percent cell count reference ranges are not reported, since discordance with absolute values may lead to misinterpretation of CBC data. Current Interpretive Data was last revised on 2017. Lymphocyte pct 23.8 % [facility] Comment: Interpretive Data Percent cell count reference ranges are not reported, since discordance with absolute values may lead to misinterpretation of CBC data. Current Interpretive Data was last revised on 2017. Monocyte pct 6.0 % [facility] Comment: Interpretive Data Percent cell count reference ranges are not reported, since discordance with absolute values may lead to misinterpretation of CBC data. Current Interpretive Data was last revised on 2017. Eosinophil pct 2.0 % [facility] Comment: Interpretive Data Percent cell count reference ranges are not reported, since discordance with absolute values may lead to misinterpretation of CBC data. Current Interpretive Data was last revised on 2017. Basophil pct 0.7 % [facility] Comment: Interpretive Data Percent cell count reference ranges are not reported, since discordance with absolute values may lead to misinterpretation of CBC data. Current Interpretive Data was last revised on 2017. Blood 10/31/2024 11:5 5 AM CDT 10/31/2024 12:06 PM CDT Tyron Roca MD LAB BLOOD ORDERABLES Final Re sult [facility] [place] [address] * (ABNORMAL) CBC with auto differential (10/31/2024 11:55 AM CDT) WBC 5.46 3.80 - 9.90 K/cumm Hgb 11.7(L) 11.9 - 15.5 g/dL [facility] Hct 33.5(L) 35.6 - 45.5 % [facility] Plt 152 150 - 400 K/cumm [facility] MPV 9.7 9.1 - 12.3 fL [facility] RBC 3.90 3.90 - 5.20 M/cumm [facility] MCV 85.9 81.3 - 96.4 fL [facility] MCH 30.0 27.1 - 33.3 pg [facility] MCHC 34.9 32.3 - 35.7 g/dL [facility] RDW CV 12.6 11.1 - 14.9 % [facility] RDW SD 38.5 35.7 - 48.1 fL [facility] NRBC abs 0.00 0.00 - 0.01 K/cumm [facility] Blood 10/31/2024 11:5 5 AM CDT 10/31/2024 12:06 PM CDT Tyron Roca MD LAB BLOOD ORDERABLES Final Re sult [facility] [place] [address] * Comprehensive metabolic panel (10/31/2024 11:55 AM CDT) Pathologist [facility] Sodium 140 135 - 145 mmol/L Potassium, pl 4.3 3.3 - 4.9 mmol/L [facility] Chloride 103 97 - 110 mmol/L [facility] CO2 31 22 - 32 mmol/L [facility] Anion gap 6 2 - 15 mmol/L [facility] BUN 13 6 - 25 mg/dL [facility] Creatinine 0.93 0.60 - 1.10 mg/dL [facility] Glucose 92 70 - 199 mg/dL [facility] Comment: Interpretive Data Fasting glucose [...] 2022. Calcium 9.5 8.5 - 10.3 mg/dL [facility] Bilirubin, total 0.9 0.1 - 1.2 mg/dL [facility] Protein, pl 7.0 6.5 - 8.5 g/dL [facility] Albumin 4.5 3.5 - 5.0 g/dL [facility] Alk phos 43 40 - 130 Units/L [facility] ALT 13 7 - 45 Units/L [facility] AST 18 10 - 45 Units/L [facility] Blood 10/31/2024 11:5 5 AM CDT 10/31/2024 12:06 PM CDT Tyron Roca MD LAB BLOOD ORDERABLES Final Re sult [facility] One [facility] Department [place] [address] * Potassium, whole blood (10/22/2024 2:40 PM CDT) Pathologist [facility] Potassium, bld 4.6 3.3 - 4.9 mmol/L [...] LAB BLOOD ORDERABLES Final Re sult [facility] [address] [address] Department of Laboratories [place], [place] [id number] * (ABNORMAL) BCR::ABL1 PCR quantitative p210 (10/22/2024 9:04 AM CDT) [facility] BCR/ABL p210 Positive(A) [facility] BCR/ABL p210 % (IS) 0.13% [facility] BCR/ABL p210 Interpretation Positive: BCR::ABL1 major (p210) transcripts were detected. [facility] BCR/ABL p210 Specimen Blood [facility] BCR/ABL p210 Result Review Final report reviewed by: Angelina Diaz MS, MB([facility]) Lapel Stitcher, on 10/23/2024 13:21:02 CDT. [facility] Comment: Interpretive Data A summary of previous BCR::ABL1 major quantitative RT-PCR results for this patient performed in the [facility] Molecular Diagnostics Lab may be found as a cumulative laboratory report in the Results Review section of the Medical Record. Method: The quantitative BCR::ABL1 assay is performed on the GeneXpert (ImageProtect) platform. RNA is extracted, converted to cDNA, [...] clinical laboratory testing. Literature References: Francisco S, Suarez L, Cross N, et al. Desirable performance characteristics for BCR-ABL measurement on an international reporting scale to allow consistent interpretation of individual patient response and comparison of response rate between clinical trials. Blood 2008;113:5715-0309. Catina HE, Donald P, Rolando P, et al. Establishment of the first World Health Organization International Genetic Reference Panel for quantification of BCR-ABL mRNA. Blood 2010;116:d946-120. GeneXpert BCR-ABL V2 Package Insert [id number], Rev B (May 2016). Xpert BCR-ABL Monitor, [id number], Rev A, November 2010. This test was performed at: [facility], [facility], [facility]#[id number], Gisele Colon, Ph.D., [place], [address], [place] Current interpretive data was last revised 2023. Blood 10/22/2024 9:04 AM CDT 10/22/2024 12:23 PM CDT Alice Pacheco NP LAB GENETIC TESTING F inal Result Performing Organization Address City/[facility]/ZIP Co de Phone Number [facility] Department [place] [address] BJ * eGFR (10/22/2024 9:04 AM CDT) [...] LAB BLOOD ORDERABLES Final Re sult [facility]RI[facility]LL[facility] Department [place] [address] * Differential, auto (10/22/2024 9:04 AM CDT) Neutrophil abs 1.96 1.50 - 6.50 K/cumm Comment:Testing performed by : [facility], [address] [place] [phone] Lymphocyte abs 1.69 0.80 - 3.30 K/cumm [facility] Comment:Testing performed by : [facility], [address] [place] [phone] Monocyte abs 0.35 0.20 - 0.80 K/cumm [facility] Comment:Testing performed by : [facility], [address] [place], [place] [id number] Eosinophil abs 0.19 0.00 - 0.50 K/cumm [facility] Comment:Testing performed by : [facility], [address] [place] [phone] Basophil abs 0.05 0.00 - 0.10 K/cumm [facility] Comment:Testing performed by : [facility], [address] [place], [place] [phone] Neutrophil pct 46.2 % [facility] Comment: Interpretive Data Percent cell count reference ranges are not reported, since discordance with absolute values may lead to misinterpretation of CBC data. Current Interpretive Data was last revised on 2017. Testing performed by: [facility], [address] [place] [phone] Lymphocyte pct 39.9 % [facility] Comment: Interpretive Data Percent cell count reference ranges are not reported, since discordance with absolute values may lead to misinterpretation of CBC data. Current Interpretive Data was last revised on 2017. Testing performed by: [facility], [address] [place] [phone] Monocyte pct 8.2 % [facility] Comment: Interpretive Data Percent cell count reference ranges are not reported, since discordance with absolute values may lead to misinterpretation of CBC data. Current Interpretive Data was last revised on 2017. Testing performed by: [facility], [address] [place] [phone] Eosinophil pct 4.5 % [facility] Comment: Interpretive Data Percent cell count reference ranges are not reported, since discordance with absolute values may lead to misinterpretation of CBC data. Current Interpretive Data was last revised on 2017. Testing performed by: [facility], [address] [place] [phone] Basophil pct 1.3 % [facility] Comment: Interpretive Data Percent cell count reference ranges are not reported, since discordance with absolute values may lead to misinterpretation of CBC data. Current Interpretive Data was last revised on 2017. Testing performed by: [facility], [address] [place] [phone] Blood 10/22/2024 9:04 AM CDT 10/22/2024 9:08 AM CDT Tyron Roca MD LAB BLOOD ORDERABLES Final Re sult Performing Organization Address City/[facility]/ZIP Co de Phone Number [facility] Department [place] [address] * (ABNORMAL) Iron profile w/ IBC (10/22/2024 9:04 AM CDT) Pathologist [facility] Iron 36 35 - 145 mcg/dL TIBC 336 250 - 400 mcg/dL [facility] Transferrin saturation 11(L) 20 - 50 % [facility] Blood 10/22/2024 9:04 AM CDT 10/22/2024 9:11 AM CDT Tyron Roca MD LAB BLOOD ORDERABLES Final Re sult Performing Organization Address City/[facility]/ZIP Co de Phone Number [facility] Department [place] [address] * (ABNORMAL) CBC with auto differential (10/22/2024 9:04 AM CDT) Pathologist [facility] WBC 4.24 3.80 - 9.90 K/cumm Comment:Testing performed by : [facility], [address] [place] [phone] Hgb 12.2 11.9 - 15.5 g/dL [facility] Comment:Testing performed by : [facility], [address] [place], [place] [phone] Hct 34.8(L) 35.6 - 45.5 % [facility] Comment:Testing performed by : [facility], [address] [place], [place] [phone] Plt 161 150 - 400 K/cumm [facility] Comment:Testing performed by : [facility], [address] [place], [place] [phone] MPV 7.9 6.8 - 10.4 fL [facility] Comment:Testing performed by : [facility], [address] [place], [place] [phone] RBC 3.92 3.90 - 5.20 M/cumm [facility] Comment:Testing performed by : [facility], [address] [place], [place] [phone] MCV 88.7 81.3 - 96.4 fL [facility] Comment:Testing performed by : [facility], [address] [place], [place] [phone] MCH 31.1 27.1 - 33.3 pg [facility] Comment:Testing performed by : [facility], [address] [place] [address] MCHC 35.0 32.3 - 35.7 g/dL [facility] Comment:Testing performed by : [facility], [address] [place] [address] RDW CV 13.0 11.1 - 14.9 % [facility] Comment:Testing performed by : [facility], [address] [place] [address] NRBC abs 0.00 0.00 - 0.01 K/cumm [facility] Comment:Testing performed by : [facility], [address] [place], [place] [phone] Blood 10/22/2024 9:04 AM CDT 10/22/2024 9:08 AM CDT Tyron Roca MD LAB BLOOD ORDERABLES Final Re sult Performing Organization Address City/State/[facility] [place] [address] * Uric acid (10/22/2024 9:04 AM CDT) Uric acid 3.1 2.5 - 7.0 mg/dL Blood 10/22/2024 9:04 AM CDT 10/22/2024 9:11 AM CDT Tyron Roca MD LAB BLOOD ORDERABLES Final Re sult Performing Organization Address [facility] [place] [address] * Lipase (10/22/2024 9:04 AM CDT) Pathologist [facility] Lipase 37 10 - 99 Units/L Blood 10/22/2024 9:04 AM CDT 10/22/2024 9:11 AM CDT Tyron Roca MD LAB BLOOD ORDERABLES Final Re sult Performing Organization Address [facility] [place] [address] * Lactate dehydrogenase (LD) (10/22/2024 9:04 AM CDT) Lactate dehydrogenase (LDH) 161 100 - 250 Units/L Blood 10/22/2024 9:04 AM CDT 10/22/2024 9:11 AM CDT Tyron Roca MD LAB BLOOD ORDERABLES Final Re sult Performing Organization Address City/[facility] Co de Phone Number [facility] [place] [address] * (ABNORMAL) Ferritin (10/22/2024 9:04 AM CDT) Ferritin 10(L) 13 - 150 ng/mL Blood 10/22/2024 9:04 AM CDT 10/22/2024 9:11 AM CDT Tyron Roca MD LAB BLOOD ORDERABLES Final Re sult [facility] One [facility] [place] [address] * (ABNORMAL) Comprehensive metabolic panel (10/22/2024 9:04 AM CDT) Pathologist [facility] Sodium 138 135 - 145 mmol/L Potassium, pl 5.6(H) 3.3 - 4.9 mmol/L [facility] Chloride 105 97 - 110 mmol/L [facility] CO2 27 22 - 32 mmol/L [facility] Anion gap 6 2 - 15 mmol/L [facility] BUN 18 6 - 25 mg/dL [facility] Creatinine 0.96 0.60 - 1.10 mg/dL [facility] Glucose 97 70 - 199 mg/dL [facility] Comment: Interpretive Data Fasting glucose [...] 2022. Calcium 9.1 8.5 - 10.3 mg/dL [facility] Bilirubin, total 1.5(H) 0.1 - 1.2 mg/dL [facility] Protein, pl 6.9 6.5 - 8.5 g/dL [facility] Albumin 4.4 3.5 - 5.0 g/dL [facility] Alk phos 35(L) 40 - 130 Units/L [facility] ALT 10 7 - 45 Units/L [facility] AST 17 10 - 45 Units/L [facility] Blood 10/22/2024 9:04 AM CDT 10/22/2024 9:11 AM CDT Tyron Roca MD LAB BLOOD ORDERABLES Final Re sult [facility] One [facility] Department [place] [address] * Screening Mammogram Bilateral W Theo W [...] finding in either breast. us Kim Chaparro JAILOR IMG MAMMO PROCEDURES Final Resul t * Colonoscopy (10/28/2023 3:15 PM CDT) Anatomical Region Laterality Modality Other Narrative Procedure Note Melva Lim MD - 10/28/2023 3:15 PM CDT [facility] Patient Name: Angelique Yeboah Procedure Date: 10/28/2023 3:15 PM Date of : 1975 Admit Type: Outpatient Age: 48 Gender: Female Attending MD: Melva Lim M.D. Room: [facility] ENDOSCOPY ROOM 8 Note Status: Finalized Procedure: [...] scope was passed under direct vision.The CF [id number] endoscope was introduced through the anus and advanced to the terminal ileum. The colonoscopy was performed without difficulty. The quality of the bowel preparation was evaluatedusing the BBPS (Duson Bowel Preparation Scale) withscores of: Right Colon [...] Most Recently Relevant to Health Maintenance Insurance [facility] [id number] [place] ANTHEM ACCESS CHOICE Advance Directives For more information, please contact: [phone] * Full Code (Latest Code Status on File) Date Activated Date Inactivated Comments 10/28/2023 2:10 PM 10/28/2023 8:23 PM * Full Code Date Activated Date Inactivated Comments 10/27/2020 8:29 PM 10/30/2020 8:50 PM Care Teams Mounter Saxophones Relationship Specialty Start Date End Date Josué Roman DO [address] [place] [address] PCP - General Family Medicine 01/14/25 Tyron Roca MD Consulting Physician Medical Oncology 10/30/20
--- OUTSIDE RECORDS SUMMARY | 2025-01-17 08:08 | XMS_ITS | Encounter Summary ---
Author Organization [facility] Address [address] [place] [address] Care Team Providers Care Accuracy Expert Name Role Phone Max Frederick MD Primary Care Provider [phone] Encounter Details Date Type Department Care Team (Late st Contact Info) Description 10/28/2021 History & Physical [facility] Oncology and Hematology - Tim [address] [facility] [address] [phone] Max Frederick MD [address] [place] [address] Social History Tobacco Use Types [...] on filedocumented in this encounter Care Teams Accuracy Expert Relationship Specialty Start Date End Date Max Frederick MD [address] [place] [address] PCP - General Family Practice 10/24/20 documented as of this encounter
--- OUTSIDE RECORDS SUMMARY | 2025-01-17 08:09 | XMS_ITS | Clinical Summary ---
Author Organization [facility] Address [facility] [place] [address] Care Team Providers Care Clinical Research Director Name Role Phone None, Provider MD Primary Care Provider Unavaila ble Social History Tobacco Use Types Packs/Day Years Used Date Smoking Tobacco: Never Assessed Comments Unknown Sex and Gender Information Value Date Recorded Sex Assigned at Not on file Legal Sex Female 10:13 PM [employer] Gender Identity Not on file Sexual Orientation [...] patient's age to complete this topic Insurance [facility] Care Teams Clinical Research Director Relationship Specialty Start Date End Date None, Provider, PCP - General 02/14/19
--- OUTSIDE RECORDS SUMMARY | 2025-01-17 08:09 | XMS_ITS | Clinical Summary ---
Author Organization [facility] Natalya Ceballos Address [address] [place] [address] Care Team Providers Care Dedicated Owner Operator Name Role Phone Max Frederick MD Primary Care Provider Allergies Active Allergy Reactions [...] Activ e fluticasone propionate (FLONASE) 50 mcg/spray [place], Suspension nasal inhaler Administer 2 Sprays in [...] Health Maintenance Due Date Last Done Comments Pre-Diabetes and Diabetes Screening 1977 DTAP/TDAP/TD VACCINES (1 - Tdap) 02/19/1996 HEPATITIS B VACCINES (1 of 3 - 19+ 3-dose series) 02/19/1996 07/01/2003, 05/22/2003 HPV/Cotest (21-29) 1998 CERVICAL CANCER SCREENING 2007 HPV/Cotest (30-65) 2007 PAP SMEAR 2007 FIT-DNA Q 3 years 2022 FIT/FOBT Q 1 year 2022 Flex Sig/CT Colonography Q 5 years 2022 COVID-19 Vaccine (2023-2 5 season) 2024 05/13/2021, 07/25/2020, 06/26/2020 BREAST CANCER SCREENING 11/17/2024 11/18/19 24, 11/18/2023, 12/29/2021 INFLUENZA VACCINE (#1) 2025 3, 03/16/2022, 03/26/2021, Additional history exists COLORECTAL SCREENING 10/27/2033 10/28/2023, 10/28/19 24 Colorectal Cancer Screening 10/27/2033 Care Teams Dedicated Owner Operator Relationship Specialty Start Date End Date Max Frederick MD [address] [place] [address] PCP - General Family Practice 10/24/20
--- OUTSIDE RECORDS SUMMARY | 2025-01-17 08:09 | XMS_ITS | Encounter Summary ---
Author Organization [facility] Address [address] [place] [address] Phone Care Team Providers Care Floating Operator Name Role Phone Tyron Roca MD Unavailable [phone] Morgan Palacio MD Unavailable [phone] Itz Love MD Unavailable [phone] Karlos Lam MD Primary Care Provider [phone] Francis Cornell MD Primary Care Provider [phone] Francis Cornell MD Primary Care Provider [phone] Rosalie Rico NP Primary Care Provider [phone] Josué Roman DO Primary Care Provider Encounter Details Date Type Department Care Team (Latest Contact Info) Description 04/14/2021 Orders Only [facility] Scanning, Provider Social [...] documented as of this encounter Care Teams Floating Operator Relationship Specialty Start Date End Date Karlos Lam MD [address] [place] [address] PCP - General Family Medicine 01/22/21 11/10/22 Francis Cornell MD [address] [place] [address] PCP - General Family Medicine 11/11/22 05/01/23 Francis Cornell MD [address] [place] [address] PCP - General Family Medicine 05/02/23 09/27/23 Rosalie Rico NP [address] [address] PCP - General Family Medicine 09/28/23 01/13/25 Josué Roman DO [address] [place] [address] PCP - General Family Medicine 01/14/25 Tyron Roca MD Consulting Physician Medical Oncology 10/30/20 Morgan Palacio MD [address] [address] Referring Physician Hematology 11/11/20 09/27/23 Itz Love MD [address] [place] [address] Referring Physician Family Practice 11/11/20 09/27/23 documented as of this encounter
--- OUTSIDE RECORDS SUMMARY | 2025-01-17 08:09 | XMS_ITS | Patient Health Record ---
Author Organization [facility] Address [address] [place] [address] Support Name Relationship Address Phone Key Velasquez Emergency Contact Unknown [phone] Angelique Yeboah Guarantor Unknown Allergies Allergen (clinical drug ingredient) Drug/Non Drug Allergy documented on EMR Reaction Allergy Type Onset Date Status Keflex Unknown Drug Allergy Active Reason For Referral No Information Medications Medication SIG (Take, Route, Frequency, Duration) Notes Start Date End Date Status Fluconazole 150 MG 1 tablet after completing antibiotics Orally 1 time per day as directed for 1 days 01/24/2019 Active Nitrofurantoin Macrocrystal 100 MG 1 capsule with food or milk Orally BID for 7 days 01/24/2019 Active Plan Of Treatment Pending Test Test Name Order Date IH Urinalysis 01/24/2019 URINALYSIS, COMPLETE W/REFLEX TO CULTURE 01/24/2019 URINE CULTURE w/ ROUTINE SENSITIVITY Insurance Providers Payer Name Payer Address Payer Phone Subscriber Number Group Number Insured Name Patient Relationship to Insured Coverage Start Date Coverage End Date [facility] [address] [place] [phone] [id number] Angelique Yeboah Self - patient is the insured Medical (General) History Surgical History Surgery Date(Month/Year)
--- OUTSIDE RECORDS SUMMARY | 2025-01-17 08:09 | XMS_ITS | Encounter Summary ---
Author Organization [facility] Address [address] [place] [address] Phone Care Team Providers Care Flow Match Sofa Cutter Name Role Phone Tyron Roca MD Unavailable [phone] Morgan Palacio MD Unavailable [phone] Itz Love MD Unavailable [phone] Karlos Lam MD Primary Care Provider [phone] Francis Cornell MD Primary Care Provider [phone] Francis Cornell MD Primary Care Provider [phone] Rosalie Rico NP Primary Care Provider [phone] Josué Roman DO Primary Care Provider Encounter Details Date Type Department Care Team (Latest Contact Info) Description 05/19/2021 Orders Only [facility] Scanning, Provider Social [...] documented as of this encounter Care Teams Flow Match Sofa Cutter Relationship Specialty Start Date End Date Karlos Lam MD [address] [place] [address] PCP - General Family Medicine 01/22/21 11/10/22 Francis Cornell MD [address] [place] [address] PCP - General Family Medicine 11/11/22 05/01/23 Francis Cornell MD [address] [place] [address] PCP - General Family Medicine 05/02/23 09/27/23 Rosalie Rico NP [address] [address] PCP - General Family Medicine 09/28/23 01/13/25 Josué Roman DO [address] [place] [address] PCP - General Family Medicine 01/14/25 Tyron Roca MD Consulting Physician Medical Oncology 10/30/20 Morgan Palacio MD [address] [address] Referring Physician Hematology 11/11/20 09/27/23 Itz Love MD [address] [place] [address] Referring Physician Family Practice 11/11/20 09/27/23 documented as of this encounter
== END 2025-01-17 08:05 | disposition home or self-care (01) ==
LOC: CHSIMG 08:06
PROVIDERS: PCP Family Medicine; Visit Provider Family Medicine
DX: Z12.31 Encounter for screening mammogram for malignant neoplasm of breast (principal)
CPT/HCPCS: 77063; 77067

== ENCOUNTER 2025-01-25 11:24 | Outpatient (NON) | payer OTHER, SELFPAY ==
--- NOTE | 2025-01-23 | CY_PTH ---
PATIENT: Angelique Yeboah LOC: [facility]#:[id number] AGE/SX: 49/F ROOM: RE01/25/[address]: Amelia Brown NP : 1975 BED: DIS: 01/25/2025 SPEC #: [id number] RECD: 01/25/25 11:49 STATUS: STEPH REQ #: [id number] ROBERT: 01/23/25 00:[address]: Amelia Brown DEPT: [facility] Cytology [facility]CD BY: [facility] Porter MLT[facility] Tissues: A - Pap Smear Procedures: Pap Smear
--- OUTSIDE RECORDS SUMMARY | 2025-01-25 11:29 | XMS_ITS | Clinical Summary ---
Author Organization [facility] Address [facility] [place] [address] Care Team Providers Care Computer Artist Name Role Phone None, Provider MD Primary Care Provider Unavaila ble Social History Tobacco Use Types Packs/Day Years Used Date Smoking Tobacco: Never Assessed Comments Unknown Sex and Gender Information Value Date Recorded Sex Assigned at Not on file Legal Sex Female 10:13 PM SUPERVISOR DIE CASTING Gender Identity Not on file Sexual Orientation [...] patient's age to complete this topic Insurance [facility] Care Teams Computer Artist Relationship Specialty Start Date End Date None, Provider, PCP - General 02/14/19
--- OUTSIDE RECORDS SUMMARY | 2025-01-25 11:29 | XMS_ITS | Clinical Summary ---
Author Organization [facility] Natalya Ceballos Address [address] [place] [address] Care Team Providers Care Assembler Carbon Brushes Name Role Phone Max Frederick MD Primary Care Provider [phone] Allergies Active Allergy Reactions Criticality Noted Date [...] Activ e fluticasone propionate (FLONASE) 50 mcg/spray [place], Suspension nasal inhaler Administer 2 Sprays in [...] 24 Colorectal Cancer Screening 10/27/2033 Care Teams Assembler Carbon Brushes Relationship Specialty Start Date End Date Max Frederick MD [address] [place] [address] PCP - General Family Practice 10/24/20
--- OUTSIDE RECORDS SUMMARY | 2025-01-25 11:29 | XMS_ITS | Encounter Summary ---
Author Organization [facility] Address [address] [place] [address] Phone Care Team Providers Care Air Transport Professionals Name Role Phone Tyron Roca MD Unavailable [phone] Morgan Palacio MD Unavailable [phone] Itz Love MD Unavailable [phone] Karlos Lam MD Primary Care Provider [phone] Francis Cornell MD Primary Care Provider [phone] Francis Cornell MD Primary Care Provider [phone] Rosalie Rico NP Primary Care Provider Josué Roman DO Primary Care Provider Encounter [...] documented as of this encounter Care Teams Air Transport Professionals Relationship Specialty Start Date End Date Karlos Lam MD [address] [place] [address] PCP - General Family Medicine 01/22/21 11/10/22 Francis Cornell MD [address] [place] [address] PCP - General Family Medicine 11/11/22 05/01/23 Francis Cornell MD [address] [place] [address] PCP - General Family Medicine 05/02/23 09/27/23 Rosalie Rico NP [address] [address] PCP - General Family Medicine 09/28/23 01/13/25 Josué Roman DO [address] [place] [address] PCP - General Family Medicine 01/14/25 Tyron Roca MD Consulting Physician Medical Oncology 10/30/20 Morgan Palacio MD [address] [address] Referring Physician Hematology 11/11/20 09/27/23 Itz Love MD [address] [place] [address] Referring Physician Family Practice 11/11/20 09/27/23 documented as of this encounter
--- OUTSIDE RECORDS SUMMARY | 2025-01-25 11:29 | XMS_ITS ---
Author Organization [facility] Address [address] [place] [address] Phone Care Team Providers Care Environmental Control Administrator Name Role Phone Tyron Roca MD Unavailable [phone] Josué Roman DO Primary Care Provider Active Problems Patient Care Coordination No te Formatting of this note is d ifferent from the original. 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 $0 copay. Picked up 10/30 and given to patient. Local Oncologist contact Local labs on 11/[address] [facility] Walk in/no appt needed Post-Discharge Follow-up 11/10 (lorraine Roca) Consult requested Televisit Consent Miscellaneous Notes: 10/28 BmBx today. Director Alumni Relations c/s for bleeding. Von Willebrand factor pending. [...] daily Assessment & Plan (08/19/2021 9:17 AM COUNSEL): Patient reports that in general her mood [...] 10/27/2020 Assessment & Plan (08/19/2021 9:19 AM COUNSEL): Labs reviewed today; patient noted to be [...] and troponins -> if any concern for HI, will need urgent pheresis -Given splenomegaly and [...] desvenlafaxine 25 mg daily Patient to contact SHELLFISH CHECKER to reengage with counseling Assessment & Plan [...] supplement. Assessment & Plan (08/19/2021 9:19 AM COUNSEL): Patient continues to have anemia secondary to [...] (10/28/2020): Added automatically from request for surgery [id number] Assessment & Plan (10/30/2020 3:08 PM CDT): -2/2 recent LEEP in setting of platelet malfunction 2/2 ? Acquired Von Willebrand factor. 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
--- OUTSIDE RECORDS SUMMARY | 2025-01-25 11:29 | XMS_ITS | Continuity of Care Document ---
Author Organization [facility] Address [address] [place] [address] Phone Care Team Providers Care Marketing Ambassador Name Role Phone Tony Arizmendi DO Unavailable Unavailable Procedures Procedure Date IMMUNIZATION ADMIN SARSCOV2 VAC 100MCG/0.5ML IM COMMUNITY SERVICE Advance Directives Directive Yes / No Effective Date File Name No Information Encounters Encounter Description Practice Location Reason(s) For Visit Diagnoses Date Provider Providers Copied on Encounter [facility], [address] [place], [address], tel:[phone] *[facility] Primary Care Covid-19 Injection Only (chief complaint) Encounter for immunization Ugo Jimenez. [address] [place], [address], . tel:[phone] Family History Family Member Type Diagnosis Age At Onset No Information Immunizations Vaccine Date Status Comments COVID-19 administered Source: [facility] unization Record COVID-19 administered Source: Public Agency COVID-19 administered Source: Public Agency Payers Payer name Insurance type Covered constitution party ID Authoriza tion(s) No Information Social [...]
--- OUTSIDE RECORDS SUMMARY | 2025-01-25 11:29 | XMS_ITS | Clinical Summary ---
Author Organization [facility] Address [address] [place] [address] Phone Care Team Providers Care Ui Software Engineer Name Role Phone Tyron Roca MD Unavailable [phone] Josué Roman DO Primary Care Provider [...] be Resolved Before Discharge Living Situation/Distance from [place], [place] (1 hr) Discharge To Home Caregiver Requests sent to Case Management and/or Medical Assistants Dasatinib to [employer]. $0 copay. Picked up 10/30 and given to patient. Local Oncologist contact Local labs on 11/04 at [facility] Walk in/no appt needed Post-Discharge Follow-up 11/10 (lorraine Roca) Consult requested Televisit Consent Miscellaneous Notes: 10/28 BmBx today. Hose Operator c/s for bleeding. Von Willebrand factor pending. Problem Noted Date Diagnosed Date Chronic iron deficiency anemia 01/09/2024 Colon cancer screening 09/29/2023 Drug rash 11/11/2022 Chemotherapy-induced neutropenia 08/26/2021 Assessment & Plan (09/28/2023 9:00 AM CDT): Continues following with Dr Roac Recurrent major depressive disorder, in full rem [...] daily Assessment & Plan (08/19/2021 9:17 AM CHALK MACHINE OPERATOR): Patient reports that in general her mood [...] 10/27/2020 Assessment & Plan (08/19/2021 9:19 AM CHALK MACHINE OPERATOR): Labs reviewed today; patient noted to be [...] and troponins -> if any concern for MS, will need urgent pheresis -Given splenomegaly and [...] desvenlafaxine 25 mg daily Patient to contact [facility] to reengage with counseling Assessment & [...] supplement. Assessment & Plan (08/19/2021 9:19 AM CHALK MACHINE OPERATOR): Patient continues to have anemia secondary to [...] (10/28/2020): Added automatically from request for surgery [id number] Assessment & Plan (10/30/2020 3:08 PM CDT): -2/2 recent LEEP in setting of platelet malfunction 2/2 ? Acquired Von Willebrand factor. Von Willebrand factor activity wnl -rv detailer consulted and following -s/p vaginal packing 10/28 with significant soaking that prompted rv detailer to take pt to the OR and do EUA, cautery, and vaginal packing -voiding trail ongoing and successful thus far - no more bleeding Encounters Date Type Department Care Team Description 01/14/[address] [facility] [address] [facility] [address] [place] [address] [place] [address] Thuy Arrieta 01/03/[address] [facility] Floor 6 [place] [address] Tyron Roca MD 01/01/[address] [facility] Floor 6 [place] [address] Elma Su NP CML (chronic myelocytic leukemia) (HCC) (Primary Dx) 01/01/[address] [facility] [address] [place] [address] Floor [address] [place] [address] Karen Lopez RN 12/26/[address] [facility] [address] [facility] Floor 6 [place] [address] Karen Lopez RN 10/31/2024 11:36 AM CDT - 10/31/2024 2:44 PM CDT Hospital Encounter [facility] ([facility]) [address] [place] [id number] Chronic iron deficiency anemia (Primary Dx); CML (chronic myelocytic leukemia) (HCC) Discharge Disposition: Discharge to home or self care from Last 3 Months Immunizations Immunization Administration [...] BREAST IMMEDI ATE / DELAYED W/ TISSUE RN WOUND CERVICAL BIOPSY W/ LOOP ELEC TRODE EXCISION [...] myelocytic leukemia) (HCC) Chronic iron deficiency anemia SCREENING MAMMOGRAM BILATERAL W THEO W IMPLANTS Schedule Routine, Read Routine (OP Routine) 11/18/2023 3:10 PM CDT Encounter for screening mammogram for malignant neoplasm of breast COLONOSCOPY 10/28/2023 3:15 PM CDT PAP AND HIGH RISK HPV, REFLEX TO GENOTYPING Routine 01/06/2023 from Last 3 Months or Most Recently Relevant to Health Maintenance Results * eGFR (10/31/2024 11:55 AM CDT) Pathologist [facility] eGFR 76 >=60 mL/min/1. 73 m2 Comment: [...] MD LAB BLOOD ORDERABLES Final Re sult [facility] [place] [address] * Differential, auto (10/31/2024 11:55 AM CDT) Pathologist [facility] Neutrophil abs 3.66 1.50 - 6.50 K/cumm Imm gran abs 0.02 0.00 - 0.10 K/cumm [facility] Lymphocyte abs 1.30 0.80 - 3.30 K/cumm [facility] Monocyte abs 0.33 0.20 - 0.80 K/cumm [facility] Eosinophil abs 0.11 0.00 - 0.50 K/cumm [facility] Basophil abs 0.04 0.00 - 0.10 K/cumm [facility] Neutrophil pct 67.1 % [facility] Comment: Interpretive Data Percent cell count reference ranges are not reported, since discordance with absolute values may lead to misinterpretation of CBC data. Current Interpretive Data was last revised on 2017. Imm gran pct 0.4 % [facility] Comment: Interpretive Data Percent cell count reference ranges are not reported, since discordance with absolute values may lead to misinterpretation of CBC data. Current Interpretive Data was last revised on 2017. Lymphocyte pct 23.8 % [facility] Comment: Interpretive Data Percent cell count reference ranges are not reported, since discordance with absolute values may lead to misinterpretation of CBC data. Current Interpretive Data was last revised on 2017. Monocyte pct 6.0 % [facility] Comment: Interpretive Data Percent cell count reference ranges are not reported, since discordance with absolute values may lead to misinterpretation of CBC data. Current Interpretive Data was last revised on 2017. Eosinophil pct 2.0 % [facility] Comment: Interpretive Data Percent cell count reference ranges are not reported, since discordance with absolute values may lead to misinterpretation of CBC data. Current Interpretive Data was last revised on 2017. Basophil pct 0.7 % [facility] Comment: Interpretive Data Percent cell count reference ranges are not reported, since discordance with absolute values may lead to misinterpretation of CBC data. Current Interpretive Data was last revised on 2017. Blood 10/31/2024 11:5 5 AM CDT 10/31/2024 12:06 PM CDT us Tyron Roca MD LAB BLOOD ORDERABLES Final Re sult [facility] [place] [address] * (ABNORMAL) CBC with auto differential (10/31/2024 11:55 AM CDT) WBC 5.46 3.80 - 9.90 K/cumm Hgb 11.7(L) 11.9 - 15.5 g/dL [facility] Hct 33.5(L) 35.6 - 45.5 % [facility] Plt 152 150 - 400 K/cumm [facility] MPV 9.7 9.1 - 12.3 fL [facility] RBC 3.90 3.90 - 5.20 M/cumm [facility] MCV 85.9 81.3 - 96.4 fL [facility] MCH 30.0 27.1 - 33.3 pg [facility] MCHC 34.9 32.3 - 35.7 g/dL [facility] RDW CV 12.6 11.1 - 14.9 % [facility] RDW SD 38.5 35.7 - 48.1 fL [facility] NRBC abs 0.00 0.00 - 0.01 K/cumm [facility] Blood 10/31/2024 11:5 5 AM CDT 10/31/2024 12:06 PM CDT Tyron Roca MD LAB BLOOD ORDERABLES Final Re sult [facility] [place] [address] * Comprehensive metabolic panel (10/31/2024 11:55 AM CDT) Sodium 140 135 - 145 mmol/L Potassium, pl 4.3 3.3 - 4.9 mmol/L [facility] Chloride 103 97 - 110 mmol/L [facility] CO2 31 22 - 32 mmol/L [facility] Anion gap 6 2 - 15 mmol/L [facility] BUN 13 6 - 25 mg/dL [facility] Creatinine 0.93 0.60 - 1.10 mg/dL [facility] Glucose 92 70 - 199 mg/dL [facility] Comment: Interpretive Data Fasting glucose [...] 2022. Calcium 9.5 8.5 - 10.3 mg/dL [facility] Bilirubin, total 0.9 0.1 - 1.2 mg/dL [facility] Protein, pl 7.0 6.5 - 8.5 g/dL [facility] Albumin 4.5 3.5 - 5.0 g/dL [facility] Alk phos 43 40 - 130 Units/L [facility] ALT 13 7 - 45 Units/L [facility] AST 18 10 - 45 Units/L [facility] Blood 10/31/2024 11:5 5 AM CDT 10/31/2024 12:06 PM CDT us Tyron Roca MD LAB BLOOD ORDERABLES Final Re sult [facility] [place] [address] * Screening Mammogram Bilateral W Theo W [...] THEO W IMPLANTS ORDERING HEALTHCARE PROVIDER: KIM CHPAARRO HISTORY: Routine screening mammography. COMPARISON: 12/29/2021, 09/12/2020, [...] finding in either breast. us Kim Chaparro CURRICULUM DESIGNER IMG MAMMO PROCEDURES Final Resul t * Colonoscopy (10/28/2023 3:15 PM CDT) Anatomical Region Laterality Modality Other Narrative Procedure Note Melva Lim MD - 10/28/2023 3:15 PM CDT [facility] Patient Name: Angelique Yeboah Procedure Date: 10/28/2023 3:15 PM Date of : 1975 Admit Type: Outpatient Age: 48 Gender: Female Attending MD: Melva Lim M.D. Room: [facility] ENDOSCOPY ROOM 8 Note Status: Finalized Procedure: Colonoscopy Indications: Screening for colorectal malignant neoplasm, Thisis the patient's first colonoscopy Referring MD: Lorena StackNMilka Providers: Melva Lim M.D. Comorbidities Chronic myeloid [...] The scope was passed under direct vision.The [id number] endoscope was introduced through the anus and advanced to the terminal ileum. The colonoscopy was performed without difficulty. The quality of the bowel preparation was evaluatedusing the BBPS (Olean Bowel Preparation Scale) withscores of: Right Colon [...] Most Recently Relevant to Health Maintenance Insurance [employer] [facility] [id number] [place] [facility] ACCESS CHOICE Advance Directives For more information, please contact: [phone] * Full Code (Latest Code Status on File) Date Activated Date Inactivated Comments 10/28/2023 2:10 PM 10/28/2023 8:23 PM * Full Code Date Activated Date Inactivated Comments 10/27/2020 8:29 PM 10/30/2020 8:50 PM Care Teams Ui Software Engineer Relationship Specialty Start Date End Date Josué Roman DO [address] [place] [address] PCP - General Family Medicine 01/14/25 Tyron Roca MD Consulting Physician Medical Oncology 10/30/20
--- OUTSIDE RECORDS SUMMARY | 2025-01-25 11:29 | XMS_ITS | Encounter Summary ---
Author Organization [facility] Address [address] [place] [address] Care Team Providers Care Radio Reporter Name Role Phone Max Frederick MD Primary Care Provider [phone] Encounter Details Date Type Department Care Team (Late st Contact Info) Description 10/28/2021 History & Physical [facility] Oncology and Hematology - Tim [address] [facility] [address] [id number] Max Frederick MD [address] [place] [address] Social History Tobacco Use Types [...] on filedocumented in this encounter Care Teams Radio Reporter Relationship Specialty Start Date End Date Max Frederick MD [address] [place] [address] PCP - General Family Practice 10/24/20 documented as of this encounter
--- OUTSIDE RECORDS SUMMARY | 2025-01-25 11:29 | XMS_ITS | Encounter Summary ---
Author Organization [facility] Address [address] [place] [address] Phone Care Team Providers Care Registered Nurse Ambulatory Name Role Phone Tyron Roca MD Unavailable [phone] Morgan Palacio MD Unavailable [phone] Itz Love MD Unavailable [phone] Karlos Lam MD Primary Care Provider [phone] Francis Cornell MD Primary Care Provider [phone] Francis Cornell MD Primary Care Provider [phone] Rosalie Rico NP Primary Care Provider [phone] Josué Roman DO Primary Care Provider Encounter [...] documented as of this encounter Care Teams Registered Nurse Ambulatory Relationship Specialty Start Date End Date Karlos Lam MD [address] [place] [address] PCP - General Family Medicine 01/22/21 11/10/22 Francis Cornell MD [address] [place] [address] PCP - General Family Medicine 11/11/22 05/01/23 Francis Cornell MD [address] [place] [address] PCP - General Family Medicine 05/02/23 09/27/23 Rosalie Rico NP [address] [address] PCP - General Family Medicine 09/28/23 01/13/25 Josué Roman DO [address] [place] [address] PCP - General Family Medicine 01/14/25 Tyron Roca MD Consulting Physician Medical Oncology 10/30/20 Morgan Palacio MD [address] [address] Referring Physician Hematology 11/11/20 09/27/23 Itz Love MD [address] [place] [address] Referring Physician Family Practice 11/11/20 09/27/23 documented as of this encounter
--- OUTSIDE RECORDS SUMMARY | 2025-01-25 11:29 | XMS_ITS | Encounter Summary ---
Author Organization [facility] Address [address] [place] [address] Phone Care Team Providers Care Integrity Manager Name Role Phone Tyron Roca MD Unavailable [phone] Morgan Palacio MD Unavailable [phone] Itz Love MD Unavailable [phone] Karlos Lam MD Primary Care Provider [phone] Francis Cornell MD Primary Care Provider [phone] Francis Cornell MD Primary Care Provider [phone] Rosalie Rico NP Primary Care Provider [phone] Josué Roman DO Primary Care Provider Encounter [...] documented as of this encounter Care Teams Integrity Manager Relationship Specialty Start Date End Date Karlos Lam MD [address] [place] [address] PCP - General Family Medicine 01/22/21 11/10/22 Francis Cornell MD [address] [place] [address] PCP - General Family Medicine 11/11/22 05/01/23 Francis Cornell MD [address] [place] [address] PCP - General Family Medicine 05/02/23 09/27/23 Rosalie Rico NP [address] [address] PCP - General Family Medicine 09/28/23 01/13/25 Josué Roman DO [address] [place] [address] PCP - General Family Medicine 01/14/25 Tyron Roca MD Consulting Physician Medical Oncology 10/30/20 Morgan Palacio MD [address] [address] Referring Physician Hematology 11/11/20 09/27/23 Itz Love MD [address] [place] [address] Referring Physician Family Practice 11/11/20 09/27/23 documented as of this encounter
--- OUTSIDE RECORDS SUMMARY | 2025-01-25 11:29 | XMS_ITS | Patient Health Record ---
Author Organization [facility] Address [address] [place] [address] Support Name Relationship Address Phone Key Velasquez Emergency Contact Unknown Angelique Yeboah Guarantor Unknown Allergies Allergen (clinical [...] Insured Coverage Start Date Coverage End Date [facility] [address] [place] [address] [phone] [id number] Angelique Yeboah Self - patient is the insured Medical (General) History Surgical History Surgery Date(Month/Year)
--- OUTSIDE RECORDS SUMMARY | 2025-01-25 11:29 | XMS_ITS | Referral Summary ---
Author Organization [facility] Address [address] [facility] [address] [place] [address] Phone Care Team Providers Care Detail Assembler Name Role Phone Tyron Roca MD Unavailable Josué Roman DO Primary Care Provider Encounters Date Type Department Care Team Description 01/14/2025 Telephone [facility] Gastroenterology [address] [facility] Advanced Medicine 12th [place] [address] [place] [address] Thuy Arrieta 01/03/2025 Telephone [facility] Bone Marrow Transplant [facility] Floor 6 [place] [id number] Tyron Roca MD 01/01/2025 Orders Only [facility] Bone Marrow Transplant [facility] Floor 6 [place] [id number] Elma Su NP CML (chronic myelocytic leukemia) (HCC) (Primary Dx) 01/01/2025 Telephone [facility] Bone Marrow Transplant [facility] Floor 6 [place] [address] Karen Lopez, GRANT 12/26/2024 Telephone [facility] Bone Marrow Transplant [facility] Floor 6 [place] [address] Karen Lopez, GRANT 10/31/2024 11:36 AM CDT - 10/31/2024 2:44 PM CDT Hospital Encounter [facility] [address] [place] [id number] Chronic iron deficiency anemia (Primary Dx); CML (chronic myelocytic leukemia) (HCC) Discharge Disposition: Discharge to home or self care from Last 3 Months Allergies Active Allergy [...] BMT/IEC Plan Patient Education Completed Consents Done [facility] Insurance Approvals/Issues Discharge Planning Anticipated Discharge Date 10/30 Issue to be Resolved Before Discharge Living Situation/Distance from [place], [place] (1 hr) Discharge To Home Caregiver Requests sent to Case Management and/or Medical Assistants Dasatinib to [employer]. $0 copay. Picked up 10/30 and given to patient. Local Oncologist contact Local labs on 11/04 at [facility] [place] Walk in/no appt needed Post-Discharge Follow-up 11/10 (per Abelino) Consult requested Televisit Consent Miscellaneous Notes: 10/28 BmBx today. Monitoring Analyst c/s for bleeding. Von Willebrand factor pending. [...] daily Assessment & Plan (08/19/2021 9:17 AM FIELD SERVICER): Patient reports that in general her mood [...] 10/27/2020 Assessment & Plan (08/19/2021 9:19 AM FIELD SERVICER): Labs reviewed today; patient noted to be [...] and troponins -> if any concern for [place], will need urgent pheresis -Given splenomegaly and [...] desvenlafaxine 25 mg daily Patient to contact [facility] to reengage with counseling Assessment & Plan [...] supplement. Assessment & Plan (08/19/2021 9:19 AM FIELD SERVICER): Patient continues to have anemia secondary to [...] (10/28/2020): Added automatically from request for surgery [id number] Assessment & Plan (10/30/2020 3:08 PM CDT): -2/2 recent LEEP in setting of platelet malfunction 2/2 ? Acquired Von Willebrand factor. Von Willebrand factor activity wnl -ob/gyn nurse consulted and following -s/p vaginal packing 10/28 with significant soaking that prompted ob/gyn nurse to take pt to the OR and [...] MD LAB BLOOD ORDERABLES Final Re sult [facility] [place] [address] * Differential, auto (10/31/2024 11:55 AM CDT) Neutrophil abs 3.66 1.50 - 6.50 K/cumm Imm gran abs 0.02 0.00 - 0.10 K/cumm [facility] Lymphocyte abs 1.30 0.80 - 3.30 K/cumm [facility] Monocyte abs 0.33 0.20 - 0.80 K/cumm [facility] Eosinophil abs 0.11 0.00 - 0.50 K/cumm [facility] Basophil abs 0.04 0.00 - 0.10 K/cumm [facility] Neutrophil pct 67.1 % [facility] Comment: Interpretive Data Percent cell count reference ranges are not reported, since discordance with absolute values may lead to misinterpretation of CBC data. Current Interpretive Data was last revised on 2017. Imm gran pct 0.4 % [facility] Comment: Interpretive Data Percent cell count reference ranges are not reported, since discordance with absolute values may lead to misinterpretation of CBC data. Current Interpretive Data was last revised on 2017. Lymphocyte pct 23.8 % [facility] Comment: Interpretive Data Percent cell count reference ranges are not reported, since discordance with absolute values may lead to misinterpretation of CBC data. Current Interpretive Data was last revised on 2017. Monocyte pct 6.0 % [facility] Comment: Interpretive Data Percent cell count reference ranges are not reported, since discordance with absolute values may lead to misinterpretation of CBC data. Current Interpretive Data was last revised on 2017. Eosinophil pct 2.0 % [facility] Comment: Interpretive Data Percent cell count reference ranges are not reported, since discordance with absolute values may lead to misinterpretation of CBC data. Current Interpretive Data was last revised on 2017. Basophil pct 0.7 % [facility] Comment: Interpretive Data Percent cell count reference ranges are not reported, since discordance with absolute values may lead to misinterpretation of CBC data. Current Interpretive Data was last revised on 2017. Blood 10/31/2024 11:5 5 AM CDT 10/31/2024 12:06 PM CDT us Tyron Roca MD LAB BLOOD ORDERABLES Final [facility] Department [place] [address] * (ABNORMAL) CBC with auto differential (10/31/2024 11:55 AM CDT) WBC 5.46 3.80 - 9.90 K/cumm Hgb 11.7(L) 11.9 - 15.5 g/dL [facility] Hct 33.5(L) 35.6 - 45.5 % [facility] Plt 152 150 - 400 K/cumm [facility] MPV 9.7 9.1 - 12.3 fL [facility] RBC 3.90 3.90 - 5.20 M/cumm [facility] MCV 85.9 81.3 - 96.4 fL [facility] MCH 30.0 27.1 - 33.3 pg [facility] MCHC 34.9 32.3 - 35.7 g/dL [facility] RDW CV 12.6 11.1 - 14.9 % [facility] RDW SD 38.5 35.7 - 48.1 fL [facility] NRBC abs 0.00 0.00 - 0.01 K/cumm [facility] Blood 10/31/2024 11:5 5 AM CDT 10/31/2024 12:06 PM CDT us Tyron Roca MD LAB BLOOD ORDERABLES Final Re sult [facility] Department [place] [address] * Comprehensive metabolic panel (10/31/2024 11:55 AM CDT) [facility] Sodium 140 135 - 145 mmol/L Potassium, pl 4.3 3.3 - 4.9 mmol/L [facility] Chloride 103 97 - 110 mmol/L [facility] CO2 31 22 - 32 mmol/L [facility] Anion gap 6 2 - 15 mmol/L [facility] BUN 13 6 - 25 mg/dL [facility] Creatinine 0.93 0.60 - 1.10 mg/dL [facility] Glucose 92 70 - 199 mg/dL [facility] Comment: Interpretive Data Fasting glucose >/= [...] Calcium 9.5 8.5 - 10.3 mg/dL [facility] Bilirubin, total 0.9 0.1 - 1.2 mg/dL [facility] Protein, pl 7.0 6.5 - 8.5 g/dL [facility] Albumin 4.5 3.5 - 5.0 g/dL [facility] Alk phos 43 40 - 130 Units/L [facility] ALT 13 7 - 45 Units/L [facility] AST 18 10 - 45 Units/L [facility] Blood 10/31/2024 11:5 5 AM CDT 10/31/2024 12:06 PM CDT us yTron Roca MD LAB BLOOD ORDERABLES Final Re sult [facility] Department [place] [address] * Screening Mammogram Bilateral W Theo W [...] finding in either breast. us Kim Chaparro LOW PRESSURE BOILER OPERATOR IMG MAMMO PROCEDURES Final Resul t * Colonoscopy (10/28/2023 3:15 PM CDT) Anatomical Region Laterality Modality Other Narrative Procedure Note Melva Lim MD - 10/28/2023 3:15 PM CDT [facility] Patient Name: Angelique Yeboah Procedure Date: 10/28/2023 3:15 PM Date of : 1975 Admit Type: Outpatient Age: 48 Gender: Female Attending MD: Melva Lim M.D. Room: [facility] ENDOSCOPY ROOM 8 Note Status: Finalized Procedure: Colonoscopy Indications: Screening for colorectal malignant neoplasm, Thisis the patient's first colonoscopy Referring MD: Kim Chaparro, FMichaelNMichaelPMichael Providers: Melva Lim M.D. Comorbidities Chronic myeloid [...] The scope was passed under direct vision.The [id number] endoscope was introduced through the anus and advanced to the terminal ileum. The colonoscopy was performed without difficulty. The quality of the bowel preparation was evaluatedusing the BBPS ([place] Bowel Preparation Scale) withscores of: Right Colon [...] Most Recently Relevant to Health Maintenance Insurance [facility] [id number] [place] [facility] ACCESS CHOICE Advance Directives For more information, please contact: [phone] * Full Code (Latest Code Status on File) Date Activated Date Inactivated Comments 10/28/2023 2:10 PM 10/28/2023 8:23 PM * Full Code Date Activated Date Inactivated Comments 10/27/2020 8:29 PM 10/30/2020 8:50 PM Care Teams Detail Assembler Relationship Specialty Start Date End Date Josué Roman DO [address] [place] [address] PCP - General Family Medicine 01/14/25 Tyron Roca MD Consulting Physician Medical Oncology 10/30/20
== END 2025-01-25 11:25 | disposition home or self-care (01) ==
LOC: CHSLAB 11:27
PROVIDERS: PCP Nurse Practitioner Family; Visit Provider Nurse Practitioner Family
DX: Z12.4 Encounter for screening for malignant neoplasm of cervix (principal); Z11.8 Encounter for screening for other infectious and parasitic diseases; Z11.3 Encounter for screening for infections with a predominantly sexual mode of transmission; Z11.51 Encounter for screening for human papillomavirus (HPV)
CPT/HCPCS: 87491; 87591; 87624; 88175; G0145

== ENCOUNTER 2025-01-31 09:47 | Outpatient (CLI) | payer SELFPAY ==
--- NOTE | ~2025-01-31 | CT_ITS ---
CT of the Abdomen and Pelvis: Indication: Abdominal pain Technique: 2.5 mm axial scans were obtained through the abdomen and pelvis following intravenous adm inistration of 100 cc of Omnipaque 350. Dose reduction technique was used on this scan by utilizing a utomated exposure control and iterative reconstruction technique. The dose-length product (DLP) was 4 36.61 mGy-cm. Findings: Scans through the lung bases are unremarkable. The liver, spleen, pancreas, adrenals and kidneys are within normal limits. Multiple gallstones are p resent. No evidence of aortic aneurysm. No lymphadenopathy. No bowel obstruction or bowel wall thickening. There is no evidence to suggest acute appendicitis. Images through the pelvis were performed. Urinary bladder unremarkable. No pelvic mass seen. No ascit es. Impression: Cholelithiasis. Reviewed, dictated and finalized at location . Impression: Cholelithiasis.
--- OUTSIDE RECORDS SUMMARY | 2025-01-31 09:57 | XMS_ITS | Clinical Summary ---
Author Organization [facility] Natalya Ceballos Address [address] [address] Care Team Providers Care Packing Line Operator Name Role Phone Max Frederick MD Primary Care Provider [phone] Allergies Active Allergy Reactions Criticality Noted Date [...] Activ e fluticasone propionate (FLONASE) 50 mcg/spray [place], Suspension nasal inhaler Administer 2 Sprays in [...] 24 Colorectal Cancer Screening 10/27/2033 Care Teams Packing Line Operator Relationship Specialty Start Date End Date Max Frederick MD [address] [place] [address] PCP - General Family Practice 10/24/20
--- OUTSIDE RECORDS SUMMARY | 2025-01-31 09:57 | XMS_ITS | Encounter Summary ---
Author Organization [facility] Address [address] [place] [address] Phone Care Team Providers Care Trimmer Press Clippings Name Role Phone Tyron Roca MD Unavailable [phone] Morgan Palacio MD Unavailable [phone] Itz Love MD Unavailable [phone] Karlos Lam MD Primary Care Provider [phone] Francis Cornell MD Primary Care Provider [phone] Francis Cornell MD Primary Care Provider [phone] Rosalie Rico NP Primary Care Provider [phone] Josué Roman DO Primary Care Provider Encounter [...] documented as of this encounter Care Teams Trimmer Press Clippings Relationship Specialty Start Date End Date Karlos Lam MD [address] [place] [address] PCP - General Family Medicine 01/22/21 11/10/22 Francis Cornell MD [address] [place] [address] PCP - General Family Medicine 11/11/22 05/01/23 Francis Cornell MD [address] [place] [address] PCP - General Family Medicine 05/02/23 09/27/23 Rosalie Rico NP [address] [address] PCP - General Family Medicine 09/28/23 01/13/25 Josué Roman DO [address] [place] [address] PCP - General Family Medicine 01/14/25 Tyron Roca MD Consulting Physician Medical Oncology 10/30/20 Morgan Palacio MD [address] [address] Referring Physician Hematology 11/11/20 09/27/23 Itz Love MD [address] [place] [address] Referring Physician Family Practice 11/11/20 09/27/23 documented as of this encounter
--- OUTSIDE RECORDS SUMMARY | 2025-01-31 09:57 | XMS_ITS | Continuity of Care Document ---
Author Organization [facility] Address [address] [place] [address] Phone Care Team Providers Care Deoiling Machine Operator Name Role Phone Tony Arizmendi DO Unavailable Unavailable Procedures Procedure Date IMMUNIZATION ADMIN SARSCOV2 VAC 100MCG/0.5ML IM COMMUNITY SERVICE Advance Directives Directive Yes / No Effective Date File Name No Information Encounters Encounter Description Practice Location Reason(s) For Visit Diagnoses Date Provider Providers Copied on Encounter [facility], [address] [place], [address], tel:[phone] *[facility] Primary Care Covid-19 Injection Only (chief complaint) Encounter for immunization Ugo Jimenez. [address] [place], [address], . tel:[phone] Family History Family Member Type Diagnosis Age At Onset No Information Immunizations Vaccine Date Status Comments COVID-19 administered Source: [facility] unization Record COVID-19 administered Source: Public Agency COVID-19 administered Source: Public Agency Payers Payer name Insurance type Covered republican ID Authoriza tion(s) No Information Social History [...]
--- OUTSIDE RECORDS SUMMARY | 2025-01-31 09:57 | XMS_ITS | Encounter Summary ---
Author Organization [facility] Address [address] [place] [address] Phone Care Team Providers Care Numerical Control Programmer Name Role Phone Tyron Roca MD Unavailable [phone] Morgan Palacio MD Unavailable [phone] Itz Love MD Unavailable [phone] Karlos Lam MD Primary Care Provider [phone] Francis Cornell MD Primary Care Provider [phone] Francis Cornell MD Primary Care Provider [phone] Rosalie Rico NP Primary Care Provider [phone] Josué Roman DO Primary Care Provider Encounter [...] documented as of this encounter Care Teams Numerical Control Programmer Relationship Specialty Start Date End Date Karlos Lam MD [address] [place] [address] PCP - General Family Medicine 01/22/21 11/10/22 Francis Cornell MD [address] [place] [address] PCP - General Family Medicine 11/11/22 05/01/23 Francis Cornell MD [address] [place] [address] PCP - General Family Medicine 05/02/23 09/27/23 Rosalie Rico NP [address] [address] PCP - General Family Medicine 09/28/23 01/13/25 Josué Roman DO [address] [place] [address] PCP - General Family Medicine 01/14/25 Tyron Roca MD Consulting Physician Medical Oncology 10/30/20 Morgan Palacio MD [address] [address] Referring Physician Hematology 11/11/20 09/27/23 Itz Love MD [address] [place] [address] Referring Physician Family Practice 11/11/20 09/27/23 documented as of this encounter
--- OUTSIDE RECORDS SUMMARY | 2025-01-31 09:57 | XMS_ITS | Encounter Summary ---
Author Organization [facility] Address [address] [place] [address] Phone Care Team Providers Care General Ii Farmworker Name Role Phone Tyron Roca MD Unavailable [phone] Morgan Palacio MD Unavailable [phone] Itz Love MD Unavailable [phone] Karlos Lam MD Primary Care Provider [phone] Francis Cornell MD Primary Care Provider [phone] Francis Cornell MD Primary Care Provider [phone] Rosalie Rico NP Primary Care Provider [phone] Josué Roman DO Primary Care Provider Encounter [...] documented as of this encounter Care Teams General Ii Farmworker Relationship Specialty Start Date End Date Karlos Lam MD [address] [place] [address] PCP - General Family Medicine 01/22/21 11/10/22 Francis Cornell MD [address] [place] [address] PCP - General Family Medicine 11/11/22 05/01/23 Francis Cornell MD [address] [place] [address] PCP - General Family Medicine 05/02/23 09/27/23 Rosalie Rico NP [address] [address] PCP - General Family Medicine 09/28/23 01/13/25 Josué Roman DO [address] [place] [address] PCP - General Family Medicine 01/14/25 Tyron Roca MD Consulting Physician Medical Oncology 10/30/20 Morgan Palacio MD [address] [address] Referring Physician Hematology 11/11/20 09/27/23 Itz Love MD [address] [place] [address] Referring Physician Family Practice 11/11/20 09/27/23 documented as of this encounter
--- OUTSIDE RECORDS SUMMARY | 2025-01-31 09:57 | XMS_ITS | Patient Health Record ---
Author Organization [facility] Address [address] [place] [address] Support Name Relationship Address Phone Key Velasquez Emergency Contact Unknown [phone] Angelique Yeboah Guarantor Unknown Allergies Allergen (clinical [...] Insured Coverage Start Date Coverage End Date [facility] [address] [place] [address] [id number] Angelique Yeboah Self - patient is the insured Medical (General) History Surgical History Surgery Date(Month/Year)
--- OUTSIDE RECORDS SUMMARY | 2025-01-31 09:57 | XMS_ITS | Clinical Summary ---
Author Organization [facility] Address [address] [place] [address] Phone Care Team Providers Care Electric Motor Fitter Name Role Phone Tyron Roca MD Unavailable [phone] Josué Roman DO Primary Care Provider Allergies Active Allergy Reactions Criticality Noted Date Comments Bosutinib Hives Medium 06/22/2021 Cephalexin Hives Medium 10/27/2020 Medications loratadine (CLARITIN) 10 mg tabletIndicatio ns:CML (chronic myelocytic leukemia) (HCC) Take 1 tablet (10 mg total) by mouth daily prn Active hydrocortisone 2.5 % cream Apply topically 2 (two) times a day as needed for irritation or rash 60 g 2 3 Active Additional Information Patient not taking.Reported on 09/28/2023 buPROPion XL (WELLBUTRIN XL) 300 mg 24 hr tablet Take 1 tablet (300 mg total) by mouth daily 90 tablet 1 4 Active aspirin 81 mg enteric coated tabletIndicatio ns:CML (chronic myelocytic leukemia) (HCC) Take 1 tablet (81 mg total) by mouth daily 30 tablet 11 5 10/23/19 26 Active PONATinib (ICLUSIG) 15 mg tabletIndicatio ns:Chronic Phase Chronic Myeloid Leukemia Take 1 tablet (15 mg total) by mouth daily 30 tablet 11 5 Active Active Problems Patient Care Coordination No te [...] be Resolved Before Discharge Living Situation/Distance from [place], [place] (1 hr) Discharge To Home Caregiver Requests sent to Case Management and/or Medical Assistants Dasatinib to [employer]. $0 copay. Picked up 10/30 and given to patient. Local Oncologist contact Local labs on 11/04 at [facility] Walk in/no appt needed Post-Discharge Follow-up 11/10 (per Abelino) Consult requested Televisit Consent Miscellaneous Notes: 10/28 BmBx today. Primary Education Professor c/s for bleeding. Von Willebrand factor pending. [...] daily Assessment & Plan (08/19/2021 9:17 AM HOUSEKEEPING STAFF): Patient reports that in general her mood [...] 10/27/2020 Assessment & Plan (08/19/2021 9:19 AM HOUSEKEEPING STAFF): Labs reviewed today; patient noted to be [...] and troponins -> if any concern for MT, will need urgent pheresis -Given splenomegaly and [...] desvenlafaxine 25 mg daily Patient to contact EXECUTIVE WELLNESS PROGRAMS DIRECTOR to reengage with counseling Assessment & Plan [...] supplement. Assessment & Plan (08/19/2021 9:19 AM HOUSEKEEPING STAFF): Patient continues to have anemia secondary to [...] (10/28/2020): Added automatically from request for surgery [id number] Assessment & Plan (10/30/2020 3:08 PM CDT): -2/2 recent LEEP in setting of platelet malfunction 2/2 ? Acquired Von Willebrand factor. Von Willebrand factor activity wnl -sorority supervisor consulted and following -s/p vaginal packing 10/28 with significant soaking that prompted sorority supervisor to take pt to the OR and do EUA, cautery, and vaginal packing -voiding trail ongoing and successful thus far - no more bleeding Encounters Date Type Department Care Team Description 01/14/2025 Telephone [facility] Gastroenterology [address] [facility] 12th [place] [address] [place] [address] Thuy Arrieta 01/03/2025 Telephone [facility] Bone Marrow Transplant [address] [place] [phone] Tyron Roca MD 01/01/2025 Orders Only [facility] Bone Marrow Transplant [address] [place] [phone] Elma Su NP CML (chronic myelocytic leukemia) (HCC) (Primary Dx) 01/01/2025 Telephone [facility] Bone Marrow Transplant [address] [place] [phone] Karen Lopez, GRANT 12/26/2024 Telephone [facility] Bone Marrow Transplant [address] [place] [phone] Kaern Lopez RN 10/31/2024 11:36 AM CDT - 10/31/2024 2:44 PM CDT Hospital Encounter [facility] ([facility]) [address] [place] [address] Chronic iron deficiency anemia (Primary Dx); CML [...] BREAST IMMEDI ATE / DELAYED W/ TISSUE RADIATION THERAPIST CERVICAL BIOPSY W/ LOOP ELEC TRODE [...] 01/06/2023, 12/01/2021, Additional history exists Covid-19 Vaccine (2023-2 5 season) 2024 05/13/2021, 07/25/2020, 06/26/2020 Depression [...] MD LAB BLOOD ORDERABLES Final Re sult [facility] [place] [address] * Differential, auto (10/31/2024 11:55 AM CDT) Pathologist [facility] Neutrophil abs 3.66 1.50 - 6.50 K/cumm Imm gran abs 0.02 0.00 - 0.10 K/cumm [facility] Lymphocyte abs 1.30 0.80 - 3.30 K/cumm [facility] Monocyte abs 0.33 0.20 - 0.80 K/cumm [facility] Eosinophil abs 0.11 0.00 - 0.50 K/cumm [facility] Basophil abs 0.04 0.00 - 0.10 K/cumm [facility] Neutrophil pct 67.1 % [facility] Comment: Interpretive Data Percent cell count reference ranges are not reported, since discordance with absolute values may lead to misinterpretation of CBC data. Current Interpretive Data was last revised on 2017. Imm gran pct 0.4 % [facility] Comment: Interpretive Data Percent cell count reference ranges are not reported, since discordance with absolute values may lead to misinterpretation of CBC data. Current Interpretive Data was last revised on 2017. Lymphocyte pct 23.8 % [facility] Comment: Interpretive Data Percent cell count reference ranges are not reported, since discordance with absolute values may lead to misinterpretation of CBC data. Current Interpretive Data was last revised on 2017. Monocyte pct 6.0 % [facility] Comment: Interpretive Data Percent cell count reference ranges are not reported, since discordance with absolute values may lead to misinterpretation of CBC data. Current Interpretive Data was last revised on 2017. Eosinophil pct 2.0 % [facility] Comment: Interpretive Data Percent cell count reference ranges are not reported, since discordance with absolute values may lead to misinterpretation of CBC data. Current Interpretive Data was last revised on 2017. Basophil pct 0.7 % [facility] Comment: Interpretive Data Percent cell count reference ranges are not reported, since discordance with absolute values may lead to misinterpretation of CBC data. Current Interpretive Data was last revised on 2017. Blood 10/31/2024 11:5 5 AM CDT 10/31/2024 12:06 PM CDT Tyron Roca MD LAB BLOOD ORDERABLES Final Re sult [facility] [place] [address] * (ABNORMAL) CBC with auto differential (10/31/2024 11:55 AM CDT) WBC 5.46 3.80 - 9.90 K/cumm Hgb 11.7(L) 11.9 - 15.5 g/dL [facility] Hct 33.5(L) 35.6 - 45.5 % [facility] Plt 152 150 - 400 K/cumm [facility] MPV 9.7 9.1 - 12.3 fL [facility] RBC 3.90 3.90 - 5.20 M/cumm [facility] MCV 85.9 81.3 - 96.4 fL [facility] MCH 30.0 27.1 - 33.3 pg [facility] MCHC 34.9 32.3 - 35.7 g/dL [facility] RDW CV 12.6 11.1 - 14.9 % [facility] RDW SD 38.5 35.7 - 48.1 fL [facility] NRBC abs 0.00 0.00 - 0.01 K/cumm [facility] Blood 10/31/2024 11:5 5 AM CDT 10/31/2024 12:06 PM CDT Tyron Roca MD LAB BLOOD ORDERABLES Final Re sult [facility] [place] [address] * Comprehensive metabolic panel (10/31/2024 11:55 AM CDT) Sodium 140 135 - 145 mmol/L Potassium, pl 4.3 3.3 - 4.9 mmol/L [facility] Chloride 103 97 - 110 mmol/L [facility] CO2 31 22 - 32 mmol/L [facility] Anion gap 6 2 - 15 mmol/L [facility] BUN 13 6 - 25 mg/dL [facility] Creatinine 0.93 0.60 - 1.10 mg/dL [facility] Glucose 92 70 - 199 mg/dL [facility] Comment: Interpretive Data Fasting glucose [...] Calcium 9.5 8.5 - 10.3 mg/dL [facility] Bilirubin, total 0.9 0.1 - 1.2 mg/dL [facility] Protein, pl 7.0 6.5 - 8.5 g/dL [facility] Albumin 4.5 3.5 - 5.0 g/dL [facility] Alk phos 43 40 - 130 Units/L [facility] ALT 13 7 - 45 Units/L [facility] AST 18 10 - 45 Units/L [facility] Blood 10/31/2024 11:5 5 AM CDT 10/31/2024 12:06 PM CDT us Tyron Roca MD LAB BLOOD ORDERABLES Final Re sult [facility] [place] [address] * Screening Mammogram Bilateral W Theo W [...] finding in either breast. us Kim Chaparro PARAFFINER IMG MAMMO PROCEDURES Final Resul t * Colonoscopy (10/28/2023 3:15 PM CDT) Anatomical Region Laterality Modality Other Narrative Procedure Note Melva Lim MD - 10/28/2023 3:15 PM CDT [facility] Patient Name: Angelique Yeboah Procedure Date: 10/28/2023 3:15 PM Date of : 1975 Admit Type: Outpatient Age: 48 Gender: Female Attending MD: Melva Lim M.D. Room: [facility] ENDOSCOPY ROOM 8 Note Status: Finalized Procedure: Colonoscopy Indications: Screening for colorectal malignant neoplasm, Thisis the patient's first colonoscopy Referring MD: Elisa Stack Providers: Mevla Lim M.D. Comorbidities Chronic myeloid leukemia (CML) [...] The scope was passed under direct vision.The [id number] endoscope was introduced through the anus and advanced to the terminal ileum. The colonoscopy was performed without difficulty. The quality of the bowel preparation was evaluatedusing the BBPS ([place] Bowel Preparation Scale) withscores of: Right Colon [...] Most Recently Relevant to Health Maintenance Insurance [facility] [id number] [place] [facility] ACCESS CHOICE Advance Directives For more information, please contact: [phone] * Full Code (Latest Code Status on File) Date Activated Date Inactivated Comments 10/28/2023 2:10 PM 10/28/2023 8:23 PM * Full Code Date Activated Date Inactivated Comments 10/27/2020 8:29 PM 10/30/2020 8:50 PM Care Teams Electric Motor Fitter Relationship Specialty Start Date End Date Josué Roman DO [address] [place] [address] PCP - General Family Medicine 01/14/25 Tyron Roca MD Consulting Physician Medical Oncology 10/30/20
--- OUTSIDE RECORDS SUMMARY | 2025-01-31 09:57 | XMS_ITS | Encounter Summary ---
Author Organization [facility] [employer] Address [address] [place] [address] Care Team Providers Care Funds Transfer Clerk Name Role Phone Max Frederick MD Primary Care Provider [phone] Encounter Details Date Type Department Care Team (Late st Contact Info) Description 10/28/2021 History & Physical [facility] Oncology and Hematology - Tim [address] [facility] [address] [phone] Max Frederick MD [address] [place] [address] Social History Tobacco Use Types [...] on filedocumented in this encounter Care Teams Funds Transfer Clerk Relationship Specialty Start Date End Date Max Frederick MD [address] [place] [address] PCP - General Family Practice 10/24/20 documented as of this encounter
--- OUTSIDE RECORDS SUMMARY | 2025-01-31 09:57 | XMS_ITS | Referral Summary ---
Author Organization [facility] Address [address] [facility] [address] [place] [address] Phone Care Team Providers Care Public Health Nurse Name Role Phone Tyron Roca MD Unavailable Josué Roman DO Primary Care Provider Encounters Date Type Department Care Team Description 01/14/2025 Telephone [facility] Gastroenterology [address] [facility] 12th [place] [address] [place] [address] Thuy Arrieta 01/03/2025 Telephone [facility] Bone Marrow Transplant [facility] Floor 6 [place] [phone] Tyron Roca MD 01/01/2025 Orders Only [facility] Bone Marrow Transplant [facility] Floor 6 [place] [phone] Elma Su NP CML (chronic myelocytic leukemia) (HCC) (Primary Dx) 01/01/2025 Telephone [facility] Bone Marrow Transplant [facility] Floor 6 [place] [address] Karen Lopez, GRANT 12/26/2024 Telephone [facility] Bone Marrow Transplant [facility] Floor 6 [place] [address] Karen Lopez, GRANT 10/31/2024 11:36 AM CDT - 10/31/2024 2:44 PM CDT Hospital Encounter [facility] ([facility]) [address] [place] [address] Chronic iron deficiency anemia (Primary Dx); CML [...] BMT/IEC Plan Patient Education Completed Consents Done [facility] Insurance Approvals/Issues Discharge Planning Anticipated Discharge Date 10/30 Issue to be Resolved Before Discharge Living Situation/Distance from [place], [place] (1 hr) Discharge To Home Caregiver Requests sent to Case Management and/or Medical Assistants Dasatinib to [facility]. $0 copay. Picked up 10/30 and given to patient. Local Oncologist contact Local labs on 11/04 at [facility] Walk in/no appt needed Post-Discharge Follow-up 11/10 (per Uy) Consult requested Televisit Consent Miscellaneous Notes: 10/28 BmBx today. Pickling Tank Operator c/s for bleeding. Von Willebrand factor [...] daily Assessment & Plan (08/19/2021 9:17 AM WIRE WEB WORKER): Patient reports that in general her [...] 10/27/2020 Assessment & Plan (08/19/2021 9:19 AM WIRE WEB WORKER): Labs reviewed today; patient noted to [...] desvenlafaxine 25 mg daily Patient to contact [facility] to reengage with counseling Assessment & [...] supplement. Assessment & Plan (08/19/2021 9:19 AM WIRE WEB WORKER): Patient continues to have anemia secondary [...] (10/28/2020): Added automatically from request for surgery [id number] Assessment & Plan (10/30/2020 3:08 PM CDT): -2/2 recent LEEP in setting of platelet malfunction 2/2 ? Acquired Von Willebrand factor. Von Willebrand factor activity wnl -paint mixer machine consulted and following -s/p vaginal packing 10/28 with significant soaking that prompted paint mixer machine to take pt to the OR and [...] * eGFR (10/31/2024 11:55 AM CDT) Pathologist [facility] eGFR 76 >=60 mL/min/1. 73 m2 Comment: [...] MD LAB BLOOD ORDERABLES Final Re sult [facility] Department [place] [address] * Differential, auto (10/31/2024 11:55 AM CDT) Pathologist [facility] Neutrophil abs 3.66 1.50 - 6.50 K/cumm Imm gran abs 0.02 0.00 - 0.10 K/cumm [facility] Lymphocyte abs 1.30 0.80 - 3.30 K/cumm [facility] Monocyte abs 0.33 0.20 - 0.80 K/cumm [facility] Eosinophil abs 0.11 0.00 - 0.50 K/cumm [facility] Basophil abs 0.04 0.00 - 0.10 K/cumm [facility] Neutrophil pct 67.1 % [facility] Comment: Interpretive Data Percent cell count reference ranges are not reported, since discordance with absolute values may lead to misinterpretation of CBC data. Current Interpretive Data was last revised on 2017. Imm gran pct 0.4 % [facility] Comment: Interpretive Data Percent cell count reference ranges are not reported, since discordance with absolute values may lead to misinterpretation of CBC data. Current Interpretive Data was last revised on 2017. Lymphocyte pct 23.8 % [facility] Comment: Interpretive Data Percent cell count reference ranges are not reported, since discordance with absolute values may lead to misinterpretation of CBC data. Current Interpretive Data was last revised on 2017. Monocyte pct 6.0 % [facility] Comment: Interpretive Data Percent cell count reference ranges are not reported, since discordance with absolute values may lead to misinterpretation of CBC data. Current Interpretive Data was last revised on 2017. Eosinophil pct 2.0 % [facility] Comment: Interpretive Data Percent cell count reference ranges are not reported, since discordance with absolute values may lead to misinterpretation of CBC data. Current Interpretive Data was last revised on 2017. Basophil pct 0.7 % [facility] Comment: Interpretive Data Percent cell count reference ranges are not reported, since discordance with absolute values may lead to misinterpretation of CBC data. Current Interpretive Data was last revised on 2017. Blood 10/31/2024 11:5 5 AM CDT 10/31/2024 12:06 PM CDT Tyron Roca MD LAB BLOOD ORDERABLES Final Re sult [facility] Department of Laboratories [place], [place] [id number] * (ABNORMAL) CBC with auto differential (10/31/2024 11:55 AM CDT) WBC 5.46 3.80 - 9.90 K/cumm Hgb 11.7(L) 11.9 - 15.5 g/dL [facility] Hct 33.5(L) 35.6 - 45.5 % [facility] Plt 152 150 - 400 K/cumm [facility] MPV 9.7 9.1 - 12.3 fL [facility] RBC 3.90 3.90 - 5.20 M/cumm [facility] MCV 85.9 81.3 - 96.4 fL [facility] MCH 30.0 27.1 - 33.3 pg [facility] MCHC 34.9 32.3 - 35.7 g/dL [facility] RDW CV 12.6 11.1 - 14.9 % [facility] RDW SD 38.5 35.7 - 48.1 fL [facility] NRBC abs 0.00 0.00 - 0.01 K/cumm [facility] Blood 10/31/2024 11:5 5 AM CDT 10/31/2024 12:06 PM CDT Tyron Roca MD LAB BLOOD ORDERABLES Final Re sult [facility] Department [place] [address] * Comprehensive metabolic panel (10/31/2024 11:55 AM CDT) Sodium 140 135 - 145 mmol/L Potassium, pl 4.3 3.3 - 4.9 mmol/L [facility] Chloride 103 97 - 110 mmol/L [facility] CO2 31 22 - 32 mmol/L [facility] Anion gap 6 2 - 15 mmol/L [facility] BUN 13 6 - 25 mg/dL [facility] Creatinine 0.93 0.60 - 1.10 mg/dL [facility] Glucose 92 70 - 199 mg/dL [facility] Comment: Interpretive Data Fasting glucose >/= [...] Calcium 9.5 8.5 - 10.3 mg/dL [facility] Bilirubin, total 0.9 0.1 - 1.2 mg/dL [facility] Protein, pl 7.0 6.5 - 8.5 g/dL [facility] Albumin 4.5 3.5 - 5.0 g/dL [facility] Alk phos 43 40 - 130 Units/L [facility] ALT 13 7 - 45 Units/L [facility] AST 18 10 - 45 Units/L [facility] Blood 10/31/2024 11:5 5 AM CDT 10/31/2024 12:06 PM CDT us Tyron Roca MD LAB BLOOD ORDERABLES Final Re sult [facility] Department [place] [address] * Screening Mammogram Bilateral W Theo W [...] finding in either breast. us Kim Chaparro PRESSURE SEALER AND TESTER IMG MAMMO PROCEDURES Final Resul t * Colonoscopy (10/28/2023 3:15 PM CDT) Anatomical Region Laterality Modality Other Narrative Procedure Note Melva Lim MD - 10/28/2023 3:15 PM CDT [facility] Patient Name: Angelique Yeboah Procedure Date: 10/28/2023 3:15 PM Date of : 1975 Admit Type: Outpatient Age: 48 Gender: Female Attending MD: Melva Lim M.D. Room: [facility] ENDOSCOPY ROOM 8 Note Status: Finalized Procedure: Colonoscopy Indications: Screening for colorectal malignant neoplasm, Thisis the patient's first colonoscopy Referring MD: Kim Chaparro, F.N.PMichael Providers: Melva Lim M.D. Comorbidities Chronic myeloid [...] scope was passed under direct vision.The CF [id number] endoscope was introduced through the anus and advanced to the terminal ileum. The colonoscopy was performed without difficulty. The quality of the bowel preparation was evaluatedusing the BBPS ([place] Bowel Preparation Scale) withscores of: Right Colon [...] Most Recently Relevant to Health Maintenance Insurance [facility] [id number] [place] [facility] ACCESS CHOICE Advance Directives For more information, please contact: [phone] * Full Code (Latest Code Status on File) Date Activated Date Inactivated Comments 10/28/2023 2:10 PM 10/28/2023 8:23 PM * Full Code Date Activated Date Inactivated Comments 10/27/2020 8:29 PM 10/30/2020 8:50 PM Care Teams Public Health Nurse Relationship Specialty Start Date End Date Josué Roman DO [address] [place] [address] PCP - General Family Medicine 01/14/25 Tyron Roca MD Consulting Physician Medical Oncology 10/30/20
--- OUTSIDE RECORDS SUMMARY | 2025-01-31 09:57 | XMS_ITS ---
Author Organization [facility] Address [address] [place] [address] Phone Care Team Providers Care Skip Hoist Operator Name Role Phone Tyron Roca MD Unavailable [phone] Josué Roman DO Primary Care Provider Active Problems Patient Care Coordination No te Formatting of this note is d ifferent from the original. BMT Inpatient Care Coordination Overview Diagnosis Possible CML - path pending Treatment Plan Dasatinib Clinical Trial Inpatient Floor 9800 Reason for Admission New leuk Transplant/IEC Planning BMT/IEC Plan Patient Education Completed Consents Done [facility] Insurance Approvals/Issues Discharge Planning Anticipated Discharge Date 10/30 Issue to be Resolved Before Discharge Living Situation/Distance from [place], [place] (1 hr) Discharge To Home Caregiver Requests sent to Case Management and/or Medical Assistants Dasatinib to [employer]. $0 copay. Picked up 10/30 and given to patient. Local Oncologist contact Local labs on 11/04 at [facility] Walk in/no appt needed Post-Discharge Follow-up 11/10 (lorraine Roca) Consult requested Televisit Consent Miscellaneous Notes: 10/28 BmBx today. Granite Block Paver c/s for bleeding. Von Willebrand factor pending. [...] daily Assessment & Plan (08/19/2021 9:17 AM MAR[place]IZER): Patient reports that in general her mood [...] 10/27/2020 Assessment & Plan (08/19/2021 9:19 AM MAR[place]IZER): Labs reviewed today; patient noted to be [...] desvenlafaxine 25 mg daily Patient to contact [facility] to reengage with counseling Assessment & Plan [...] supplement. Assessment & Plan (08/19/2021 9:19 AM MAR[place]IZER): Patient continues to have anemia secondary to [...] (10/28/2020): Added automatically from request for surgery [id number] Assessment & Plan (10/30/2020 3:08 PM CDT): -2/2 recent LEEP in setting of platelet malfunction 2/2 ? Acquired Von Willebrand factor. 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
--- OUTSIDE RECORDS SUMMARY | 2025-01-31 09:57 | XMS_ITS | Clinical Summary ---
Author Organization [facility] Address [address] [place] [address] Phone Care Team Providers Care Hydrologist Name Role Phone Unavailable Primary Care Provider Unavailabl e Social History Tobacco Use Types Packs/Day Years Used Date Smoking Tobacco: Never Assessed Comments Unknown Sex and Gender Information Value Date Recorded Sex Assigned at Not on file Legal Sex Female 12:52 PM CDT Gender Identity Not on file Sexual Orientation Not on file Plan of Treatment Upcoming Encounters Date Type Department Care Team (Late st Contact Info) Description 02/20/2025 9:40 AM CDT Office Visit [facility] Oncology Services [address] [place] [phone] James Rojas MD [address] [place] [address] Discharge Disposition: Discharged to home or Selfcare Health Maintenance Due Date Last Done Comments Hepatitis C Virus (HCV) Screening 1975 TdaP Immunization 1975 Pap Smear 1998 Hepatitis B Immunization (3 of 3 - 19+ 3-dose series) 11/20/2003 07/01/2003, 05/22/2003 Cervical Cancer Screening (CCS) 2007 HPV/Cotest 2007 Cologuard 2022 Immunochemical Fecal Occult Blood 2022 SARS-COV-2 Immunization ( season) 2024 05/13/2021, 07/25/2020, 06/26/2020 Mammogram 11/17/2024 11/18/2023, 12/29/2021 Influenza Immunization (#1) 03/04/202504/03, 04/11/2023, 03/16/2022, Additional history exists Colonoscopy 10/27/2033 10/28/2023 Colorectal Cancer Screening 10/27/2033 Respiratory Syncytial Virus (RSV) Immunization (Adult) (1 - 1-dose 75+ series) 02/19/2052 Discussion re Starting/Frequency of Mammograms Completed 11/18/2023, 12/29/2021 Human Papillomavirus (HPV) Immunization Aged Out No longer eligible based on patient's age to complete this topic Meningococcal Immunization (ACWY) Aged Out No longer eligible based on patient's age to complete this topic Pneumococcal Immunization Combined Aged Out No longer eligible based on patient's age to complete this topic Rotavirus Immunization Aged Out No lo nger eligible based on patient's age to complete this topic
== END 2025-01-31 09:48 | disposition home or self-care (01) ==
PROVIDERS: PCP Family Medicine; Visit Provider Family Medicine
DX: K85.90 Acute pancreatitis without necrosis or infection, unspecified (principal); R10.13 Epigastric pain; K80.20 Calculus of gallbladder without cholecystitis without obstruction
CPT/HCPCS: 74177; Q9967

== ENCOUNTER 2025-02-08 09:02 | Emergency (ER) | payer OTHER, SELFPAY ==
[2025-02-08] VITALS (24 sets, daily range): BP systolic 112–133; BP diastolic 80–90; PULSE 77–92; RESP 3–22; TEMP 36.8; O2SAT 100
--- NOTE | 2025-02-08 | CONSULT_PTH ---
PATIENT: Angelique Yeboah LOC: [facility] U#:[id number] AGE/SX: 49/F ROOM: RE02/08/[address]: Dixon Stephens MD : 1975 BED: DIS: 02/08/2025 SPEC #: [id number] RECD: 02/08/25 10:20 STATUS: STEPH REQ #: [id number] ROBERT: 02/08/25 00:[address]: Dixon Stephens DEPT: [facility] Consult RECD BY: Keiko Delgado MLT, [facility] ENTERED: 02/08/25 10:20 SP TYPE: Consult OTHR DR: Josué Roman DO Tissues: A - Peripheral Smear Procedures: Hematology Consult
--- NOTE | ~2025-02-08 | XR_ITS ---
EXAMINATION: XR chest 2V 02/08/2025 10:00 INDICATION: Chest palpitations PROCEDURE: 2 view chest COMPARISON: No prior studies for comparison. FINDINGS: The lungs are clear. The cardiomediastinal silhouette is within normal limits. There are no pleural effusions. There is no pneumothorax suspected. IMPRESSION: 1: NO ACUTE CARDIOPULMONARY DISEASE. Reviewed, dictated and finalized at location A.
--- OUTSIDE RECORDS SUMMARY | 2025-02-08 09:08 | XMS_ITS | Clinical Summary ---
Author Organization [facility] Address [address] [place] [address] Phone Care Team Providers Care Registered Nurse Behavioral Health Name Role Phone Tyron Roca MD Unavailable [phone] Josué Roman DO Primary Care Provider Allergies Active Allergy Reactions Criticality Noted Date Comments Bosutinib Hives Medium 06/22/2021 Cephalexin Hives Medium 10/27/2020 Medications loratadine (CLARITIN) 10 mg tabletIndicatio ns:CML (chronic myelocytic leukemia) Take 1 tablet (10 mg total) by [...] enteric coated tabletIndicatio ns:CML (chronic myelocytic leukemia) Take 1 tablet (81 mg total) by mouth daily 30 tablet 11 5 10/23/19 26 Active PONATinib (ICLUSIG) 15 mg tabletIndicatio ns:Chronic Phase Chronic Myeloid Leukemia Take 1 tablet (15 mg total) by mouth daily 30 tablet 5 Active Active Problems Patient Care Coordination [...] be Resolved Before Discharge Living Situation/Distance from [place], [place] (1 hr) Discharge To Home Caregiver Requests sent to Case Management and/or Medical Assistants Dasatinib to [employer]. $0 copay. Picked up 10/30 and given to patient. Local Oncologist contact Local labs on 11/[address] [facility] Walk in/no appt needed Post-Discharge Follow-up 11/10 (per Abelino) Consult requested Televisit Consent Miscellaneous Notes: 10/28 BmBx today. Wall Mirror Department Supervisor c/s for bleeding. Von Willebrand factor pending. [...] daily Assessment & Plan (08/19/2021 9:17 AM HAND COLLATOR): Patient reports that in general her mood [...] 10/27/2020 Assessment & Plan (08/19/2021 9:19 AM HAND COLLATOR): Labs reviewed today; patient noted to be [...] and troponins -> if any concern for ID, will need urgent pheresis -Given splenomegaly and [...] desvenlafaxine 25 mg daily Patient to contact [facility] to reengage with counseling Assessment & [...] supplement. Assessment & Plan (08/19/2021 9:19 AM HAND COLLATOR): Patient continues to have anemia secondary to [...] (10/28/2020): Added automatically from request for surgery [id number] Assessment & Plan (10/30/2020 3:08 PM CDT): -2/2 recent LEEP in setting of platelet malfunction 2/2 ? Acquired Von Willebrand factor. Von Willebrand factor activity wnl -front desk officer consulted and following -s/p vaginal packing 10/28 with significant soaking that prompted front desk officer to take pt to the OR and do EUA, cautery, and vaginal packing -voiding trail ongoing and successful thus far - no more bleeding Encounters Date Type Department Care Team Description 02/04/2025 Documentation [facility] [address] [place] [address] 6 [place] [address] Raysa Villagran RMA PRIOR AUTH/PAP ICLUSIG 02/04/2025 Documentation [facility] [address] [place] [address] Floor 6 [place] [address] Raysa Villagran RMA CASE CLOSURE ICLUSIG 01/14/2025 Telephone [facility] Gastroenterology [address] [place] [address] Advanced Medicine 12th [place] [address] [place] [id number] Thuy Arrieta 01/03/2025 Telephone [facility] Bone Marrow Transplant [address] [place] [address] Floor 6 [place] [address] Tyron Roca MD 01/01/2025 Orders Only [facility] [address] [place] [address] Floor 6 [place] [address] Elma Su NP CML (chronic myelocytic leukemia) (HCC) (Primary Dx) 01/01/2025 Telephone [facility] Bone [facility]row Transplant [address] [facility] Floor 6 [place] [address] Karen Lopez, RN 12/26/2024 Telephone [facility] Bone Marrow Transplant [facility] 6 [place] [address] Karen Lopez, RN from Last 3 Months Immunizations Immunization Administration [...] BREAST IMMEDI ATE / DELAYED W/ TISSUE INFORMATICS PHYSICIAN CERVICAL BIOPSY W/ LOOP ELEC TRODE EXCISION [...] Procedure Name Priority Date/Time Associated Diagnosis Comments SCREENING MAMMOGRAM BILATERAL W THEO W IMPLANTS Schedule Routine, Read Routine (OP Routine) 11/18/2023 3:10 PM CDT Encounter for screening mammogram for malignant neoplasm of breast COLONOSCOPY 10/28/2023 3:15 PM CDT PAP AND HIGH RISK HPV, REFLEX TO GENOTYPING Routine 01/06/2023 from Last 3 Months or Most Recently Relevant to Health Maintenance Results * Screening Mammogram Bilateral W Theo W [...] for her next mammogram. Electronically signed by: Ashlyn Rasheed 12/01/2023 1:36 PM CDT EXAMINATION: SCREENING MAMMOGRAM [...] finding in either breast. us Kim Chaparro CARTON AND CAN SUPPLY SUPERVISOR IMG MAMMO PROCEDURES Final Resul t * Colonoscopy (10/28/2023 3:15 PM CDT) Anatomical Region Laterality Modality Other Narrative Procedure Note Melva Lim MD - 10/28/2023 3:15 PM CDT [facility] Patient Name: Angelique Yeboah Procedure Date: 10/28/2023 3:15 PM Date of : 1975 Admit Type: Outpatient Age: 48 Gender: Female Attending MD: Melva Lim M.D. Room: [facility] ENDOSCOPY ROOM 8 Note Status: Finalized [...] The scope was passed under direct vision.The [id number] endoscope was introduced through the anus and advanced to the terminal ileum. The colonoscopy was performed without difficulty. The quality of the bowel preparation was evaluatedusing the BBPS ([place] Bowel Preparation Scale) withscores of: Right Colon [...] based on pathology results. Electronically signed by Osama Altayar, MD Melva Lim M.D. 10/28/2023 3:41:13 PM . Number of Addenda: 0 Note Initiated On: 10/28/2023 3:15 PM Melva Lim MD ENDOSCOPY PROCEDURES Final Resu lt * Pap and High Risk HPV and Genotyping (Cytology Component) (01/06/2023) Thin prep 01/06/2023 Historical Provider LAB CYTOLOGY ORDERABLES F inal Result from Last 3 Months or Most Recently Relevant to Health Maintenance Insurance [facility] [id number] [place] [facility] ACCESS CHOICE Advance Directives For more information, please contact: [phone] * Full Code (Latest Code Status on File) Date Activated Date Inactivated Comments 10/28/2023 2:10 PM 10/28/2023 8:23 PM * Full Code Date Activated Date Inactivated Comments 10/27/2020 8:29 PM 10/30/2020 8:50 PM Care Teams Registered Nurse Behavioral Health Relationship Specialty Start Date End Date Josué Roman DO [address] [place] [address] PCP - General Family Medicine 01/14/25 Tyron Roca MD Consulting Physician Medical Oncology 10/30/20
--- OUTSIDE RECORDS SUMMARY | 2025-02-08 09:08 | XMS_ITS | Encounter Summary ---
Author Organization [facility] Address [address] [place] [address] Care Team Providers Care Physical Testing Supervisor Name Role Phone Max Frederick MD Primary Care Provider [phone] Encounter Details Date Type Department Care Team (Late st Contact Info) Description 10/28/2021 History & Physical [facility] Oncology and Hematology - Tim [address] [facility] [address] [phone] Max Frederick MD [address] [place] [address] Social History Tobacco Use Types [...] on filedocumented in this encounter Care Teams Physical Testing Supervisor Relationship Specialty Start Date End Date Max Frederick MD [address] [place] [address] PCP - General Family Practice 10/24/20 documented as of this encounter
--- OUTSIDE RECORDS SUMMARY | 2025-02-08 09:08 | XMS_ITS | Encounter Summary ---
Author Organization [facility] Address [address] [place] [address] Phone Care Team Providers Care Vice President & General Manager [employer] Name Role Phone Tyron Roca MD Unavailable [phone] Morgan Palacio MD Unavailable [phone] Itz Love MD Unavailable [phone] Karlos Lam MD Primary Care Provider [phone] Francis Cornell MD Primary Care Provider [phone] Francis Cornell MD Primary Care Provider [phone] Rosalie Rico NP Primary Care Provider [phone] Josué Roman DO Primary Care Provider Encounter [...] documented as of this encounter Care Teams Vice President & General Manager [employer] Relationship Specialty Start Date End Date Karlos Lam MD [address] [place] [address] PCP - General Family Medicine 01/22/21 11/10/22 Francis Cornell MD [address] [place] [address] PCP - General Family Medicine 11/11/22 05/01/23 Francis Cornell MD [address] [place] [address] PCP - General Family Medicine 05/02/23 09/27/23 Rosalie Rico NP [address] [address] PCP - General Family Medicine 09/28/23 01/13/25 Josué Roman DO [address] [place] [address] PCP - General Family Medicine 01/14/25 Tyron Roca MD Consulting Physician Medical Oncology 10/30/20 Morgan Palacio MD [address] [address] Referring Physician Hematology 11/11/20 09/27/23 Itz Love MD [address] [place] [address] Referring Physician Family Practice 11/11/20 09/27/23 documented as of this encounter
--- OUTSIDE RECORDS SUMMARY | 2025-02-08 09:08 | XMS_ITS | Clinical Summary ---
Author Organization [facility] Address [address] [place] [address] Phone Care Team Providers Care Casting Molder Name Role Phone Unavailable Primary Care Provider [...] 02/20/2025 9:40 AM CDT Office Visit [facility] On[facility] Services [address] [place] [phone] James Rojas MD [address] [place] [address] Discharge Disposition: Discharged to home or Selfcare [...] patient's age to complete this topic Insurance [facility] [id number]
--- OUTSIDE RECORDS SUMMARY | 2025-02-08 09:08 | XMS_ITS ---
Author Organization [facility] Address [address] [place] [address] Phone Care Team Providers Care Iap Displays Analyst Name Role Phone Tyron Roca MD Unavailable [phone] Josué Roman DO Primary Care Provider Active Problems Patient Care Coordination No te Formatting of this note is d ifferent from the original. 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 $0 copay. Picked up 10/30 and given to patient. Local Oncologist contact Local labs on 11/04 at [facility] Walk in/no appt needed Post-Discharge Follow-up 11/10 (lorraine Roca) Consult requested Televisit Consent Miscellaneous Notes: 10/28 BmBx today. Meat Lugger c/s for bleeding. Von Willebrand factor pending. [...] daily Assessment & Plan (08/19/2021 9:17 AM REDUCTION PLANT SUPERVISOR): Patient reports that in general her [...] 10/27/2020 Assessment & Plan (08/19/2021 9:19 AM REDUCTION PLANT SUPERVISOR): Labs reviewed today; patient noted to [...] and troponins -> if any concern for CT, will need urgent pheresis -Given splenomegaly and [...] desvenlafaxine 25 mg daily Patient to contact [facility] to reengage with counseling Assessment & Plan [...] supplement. Assessment & Plan (08/19/2021 9:19 AM REDUCTION PLANT SUPERVISOR): Patient continues to have anemia secondary [...] (10/28/2020): Added automatically from request for surgery [id number] Assessment & Plan (10/30/2020 3:08 PM CDT): -2/2 recent LEEP in setting of platelet malfunction 2/2 ? Acquired Von Willebrand factor. Von Willebrand factor activity wnl -contact center assistant consulted and following -s/p vaginal packing 10/28 with significant soaking that prompted contact center assistant to take pt to the OR and do EUA, cautery, and vaginal packing -voiding trail ongoing and successful thus far - no more bleeding Current Treatment and Therapy Plans iron dextran (INFED) infusion* Plan Start Date:01/11/2024 Plan Provider:Tyron Roca MD Linked Problems Chronic iron deficiency anem iaCML (chronic myelocytic leukemia) Treatment Medications No medications scheduled. 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
--- OUTSIDE RECORDS SUMMARY | 2025-02-08 09:09 | XMS_ITS | Encounter Summary ---
Author Organization [facility] Address [address] [place] [address] Phone Care Team Providers Care Developmental Mathematics Instructor Name Role Phone Tyron Roca MD Unavailable [phone] Morgan Palacio MD Unavailable [phone] Itz Love MD Unavailable [phone] Karlos Lam MD Primary Care Provider [phone] Francis Cornell MD Primary Care Provider [phone] Francis Cornell MD Primary Care Provider [phone] Rosalie Rico NP Primary Care Provider [phone] Josué Roman DO Primary Care Provider Encounter [...] documented as of this encounter Care Teams Developmental Mathematics Instructor Relationship Specialty Start Date End Date Karlos Lam MD [address] [place] [address] PCP - General Family Medicine 01/22/21 11/10/22 Francis Cornell MD [address] [place] [address] PCP - General Family Medicine 11/11/22 05/01/23 Francis Cornell MD [address] [place] [address] PCP - General Family Medicine 05/02/23 09/27/23 Rosalie Rico NP [address] [address] PCP - General Family Medicine 09/28/23 01/13/25 Josué Roman DO [address] [place] [address] PCP - General Family Medicine 01/14/25 Tyron Roca MD Consulting Physician Medical Oncology 10/30/20 Morgan Palacio MD [address] [address] Referring Physician Hematology 11/11/20 09/27/23 Itz Love MD [address] [place] [address] Referring Physician Family Practice 11/11/20 09/27/23 documented as of this encounter
--- OUTSIDE RECORDS SUMMARY | 2025-02-08 09:09 | XMS_ITS | Patient Health Record ---
Author Organization [facility] Address [address] [place] [address] Support Name Relationship Address Phone Key Velasquez Emergency Contact Unknown Angelique Yeboah Guarantor Unknown [phone] Allergies Allergen (clinical drug ingredient) Drug/Non Drug Allergy documented on EMR Reaction Allergy Type Onset Date Status Keflex Unknown Drug Allergy Active Reason For Referral No Information Medications Medication SIG (Take, Route, Frequency, Duration) Notes Start Date End Date Status Fluconazole 150 MG 1 tablet after completing antibiotics Orally 1 time per day as directed; Duration: 1 days 01/24/2019 Active Nitrofurantoin Macrocrystal 100 MG 1 capsule with food or milk Orally BID; Duration: 7 days 01/24/2019 Active Plan Of Treatment Pending Test Test Name Order Date IH Urinalysis 01/24/2019 URINALYSIS, COMPLETE W/REFLEX TO CULTURE 01/24/2019 URINE CULTURE w/ ROUTINE SENSITIVITY Insurance Providers Payer Name Payer Address Payer Phone Subscriber Number Group Number Insured Name Patient Relationship to Insured Coverage Start Date Coverage End Date [facility] [address] [place] [phone] [id number] Angelique Yeboah Self - patient is the insured Medical (General) History Surgical History Surgery Date(Month/Year)
--- OUTSIDE RECORDS SUMMARY | 2025-02-08 09:09 | XMS_ITS | Clinical Summary ---
Author Organization [facility] Address [facility] [place] [address] Care Team Providers Care All Around Gear Machine Operator Name Role Phone None, Provider Primary Care Provider Unavaila ble Encounters Date Type Department Care Team Description 01/23/2025 12:25 PM CDT - 01/23/2025 11:59 PM CDT Hospital Encounter [facility] [address] [place] [address] Amelia Brown, WEB SERVICES ARCHITECT Discharge Disposition: Home or Self Care (Routine Discharge) from Last 3 Months Social History Tobacco Use Types Packs/Day Years Used Date Smoking Tobacco: Never Assessed Comments Unknown Sex and Gender Information Value Date Recorded Sex Assigned at Not on file Legal Sex Female 10:13 PM MARKET DEVELOPMENT ANALYST Gender Identity Not on file Sexual Orientation [...] of 3 - 19+ 3-dose series) 02/19/1996 Mammogram Screening 2017 COVID-19 Vaccine (2023-2 5 season) 2024 Cervical Cancer Screening Pa p with HPV Testing (Age 30 to 64) Every 5 Years 01/23/2030 01/23/2025, 01/23/2025 Cervical Cancer Screening wi th HPV 01/23/2030 Meningococcal B Vaccine Aged Out No l onger eligible based on patient's age to complete this topic Meningococcal Vaccine Aged Out No gianfranco flory eligible based on patient's age to complete this topic Pneumococcal Vaccine: Pediatrics (0 to 5 Years) and At-Risk Patients (6 to 49 Years) Aged Out No longer eligible b ased on patient's age to complete this topic RSV Immunizations Under 20 Months Aged Out No longer eligible b ased on patient's age to complete this topic Procedures Procedure Name Priority Date/Time Associated Diagnosis Comments HPV GENOTYPES 16, 18/45 Routine 01/23/2025 12:00 PM CDT HUMAN PAPILLOMAVIRUS, HIGH-RISK TYPES Routine 01/23/2025 12:00 PM CDT from Last 3 Months Results * HPV GENOTYPES 16, 18/45 (01/23/2025 12:00 PM CDT) HPV 16 RNA NOT DETECTED NOT DETECTED 02/07/2025 6:29 AM CDT [facility] HPV 18/45 RNA NOT DETECTED NOT DETECTED 02/07/2025 6:29 AM CDT [facility]ENTER[facility] HASKINS Comment: Methodology: Hot Wort Settler-Mediated Amplification Cervical sources are required for HPV testing. If a vaginal source from a patient who has had a total hysterectomy with removal of cervix was submitted, please contact the testing laboratory for alternative testing options. The analytical performance characteristics of this assay have been determined by [place]. The modifications have not been cleared or approved by the FDA. This assay has been validated pursuant to the CLIA regulations and is used for clinical purposes. Test Performed by [employer] [facility], [place], [address] [place], [place] Jeramy Cherry M.D., Ph.D., Director of Laboratories , CLIA [id number] 01/23/2025 12:0 0 PM CDT Amelia Scar Stpehanie WEB SERVICES ARCHITECT PATHOLOGY/CYTOLOGY ORDERA BLES Final Result [employer] [place] [id number] [place], [place] , [place] [phone] * (ABNORMAL) HUMAN PAPILLOMAVIRUS, HIGH-RISK TYPES (01/23/2025 12:00 PM CDT) SPEC DESCRIPTION CERVIX 01/31/2025 1:28 PM CDT [facility] HPV DNA HIGH RISK POSITIVE(A ) NEGATIVE 02/01/2025 4:00 PM CDT [facility] Comment:SEE CYTOLOGY REPORT 01/23/2025 12:0 0 PM CDT Amelia Brown WEB SERVICES ARCHITECT PATHOLOGY/CYTOLOGY ORDERA DYLAN Final Result [facility] [address] [employer] [place] [address], from Last 3 Months Insurance [facility] Care Teams All Around Gear Machine Operator Relationship Specialty Start Date End Date None, Provider, PCP - General 02/14/19
--- OUTSIDE RECORDS SUMMARY | 2025-02-08 09:09 | XMS_ITS | Continuity of Care Document ---
Author Organization [facility] Address [address] [place] [address] Phone Care Team Providers Care Snowmaker Name Role Phone Tony Arizmendi DO Unavailable Unavailable Procedures Procedure Date IMMUNIZATION ADMIN SARSCOV2 VAC 100MCG/0.5ML IM COMMUNITY SERVICE Advance Directives Directive Yes / No Effective Date File Name No Information Encounters Encounter Description Practice Location Reason(s) For Visit Diagnoses Date Provider Providers Copied on Encounter [facility], [address] [place], [address], tel:[phone] [facility] Covid-19 Injection Only (chief complaint) Encounter for immunization Ugo Jimenez. [address] [place], [address], . tel:[phone] Family History Family Member Type Diagnosis Age At Onset No Information Immunizations Vaccine Date Status Comments COVID-19 administered Source: [facility] unization Record COVID-19 administered Source: Public [...]
--- OUTSIDE RECORDS SUMMARY | 2025-02-08 09:09 | XMS_ITS | Clinical Summary ---
Author Organization [facility] Natalya Ceballos Address [address] [place] [address] Care Team Providers Care Film Painter Name Role Phone Max Frederick MD Primary Care Provider [phone] Allergies Active Allergy Reactions Criticality Noted Date [...] Activ e fluticasone propionate (FLONASE) 50 mcg/spray [place], Suspension nasal inhaler Administer 2 Sprays in [...] 24 Colorectal Cancer Screening 10/27/2033 Care Teams Film Painter Relationship Specialty Start Date End Date Max Frederick MD [address] [place] [address] PCP - General Family Practice 10/24/20
--- OUTSIDE RECORDS SUMMARY | 2025-02-08 09:09 | XMS_ITS | Encounter Summary ---
Author Organization [facility] Address [address] [place] [address] Phone Care Team Providers Care Django Developer Name Role Phone Tyron Roca MD Unavailable [phone] Morgan Palacio MD Unavailable [phone] Itz Love MD Unavailable [phone] Karlos Lam MD Primary Care Provider [phone] Francis Cornell MD Primary Care Provider [phone] Francis Cornell MD Primary Care Provider [phone] Rosalie Rico NP Primary Care Provider [phone] Josué Roman DO Primary Care Provider Encounter [...] documented as of this encounter Care Teams Django Developer Relationship Specialty Start Date End Date Karlos Lam MD [address] [place] [address] PCP - General Family Medicine 01/22/21 11/10/22 Francis Cornell MD [address] [place] [address] PCP - General Family Medicine 11/11/22 05/01/23 Francis Cronell MD [address] [place] [address] PCP - General Family Medicine 05/02/23 09/27/23 Rosalie Rico NP [address] [address] PCP - General Family Medicine 09/28/23 01/13/25 Josué Roman DO [address] [place] [address] PCP - General Family Medicine 01/14/25 Tyron Roca MD Consulting Physician Medical Oncology 10/30/20 Morgan Palacio MD [address] [address] Referring Physician Hematology 11/11/20 09/27/23 Itz Love MD [address] [place] [address] Referring Physician Family Practice 11/11/20 09/27/23 documented as of this encounter
--- NOTE | 2025-02-08 09:11 | ED_ITS ---
HPI - Arrhythmia/Palpitations General Chief Complaint: Arrhythmia/Palpitations Stated Complaint: fells like heart is racing Time Seen by Provider: 02/08/25 09:09 Source: patient Mode of arrival: ambulatory Limitations: no limitations History of Present Illness HPI narrative: patient is a 49-year-old female with some palpitations and occasional chest pain with some shortness of breath and abdominal pain/distension and lower extremity swelling all over the past 2 months. This appears to be progressively worsening that is why she came for ER evaluation at this time. Patient said her heartbeat has been elevated to 90 and 100-110. Patient has been having dark stools over the past 2 weeks. MD complaint: rapid heart beat and palpitations Onset (ago): month(s) ( Two) Duration: constant Severity: mild Context: occurred during rest and occurred during exertion Arrhythmia history: other ( leukemia) Associated symptoms: chest pain, shortness of breath, near-syncope, anxiety and feeling of impending doom Treatments prior to arrival: other ( none) Related Data Home Medications ?Medication ?Instructions ?Recorded ?Confirmed ?Last Taken ?Type aspirin 81 mg tablet 81 mg PO DAILY 01/11/25 01/23/25 Unknown History magnesium sulfate 100 mg capsule 100 mg PO BID 01/11/25 01/23/25 Unknown History ponatinib 30 mg tablet (Iclusig) 15 mg PO DAILY 01/11/25 01/23/25 Unknown History Allergies Allergy/AdvReac Type Severity Reaction Status Date / Time cephalexin Allergy Unknown Hives Verified 02/08/25 09:14 bosutinib (From Bosulif) Allergy Hives Verified 02/08/25 09:14 Review of Systems 2 Review of Systems: All systems reviewed & are unremarkable except as noted in HPI and below Constitutional: Constitutional: Reports no additional constitutional complaints Eyes: Eyes: Reports no additional eye complaints ENT: Reports system reviewed and no additional complaints, except as documented Cardiovascular: Cardiovascular: Reports no additional cardiovascular complaints Respiratory: Respiratory: Reports no additional respiratory complaints Gastrointestinal: Gastrointestinal: Reports no additional gastrointestinal complaints Genitourinary: Genitourinary: Reports no additional female genitourinary complaints Musculoskeletal: Musculoskeletal: Reports no additional musculoskeletal complaints Integumentary/Breasts: Skin/Breast: Reports system reviewed and no additional complaints, except as docu Neurologic: Reports system reviewed and no additional complaints, except as documented Psychiatric: Psychiatric: Reports no additional psychiatric complaints Endocrine: Endocrine: Reports no additional endocrine complaints Hematologic/Lymphatic: Hematologic/Lymphatic: Reports no additional hematologic/lymphatic complaints Allergic/Immunologic: Allergic/Immunologic: Reports no additional allergic/immunologic complaints PMFSH Past Medical History Medical History CML (chronic myelocytic leukemia) Abnormal Pap smear of cervix HGSIL, 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) Depression with anxiety Surgical History Surgical History History of hysteroscopy S/P endometrial ablation History of endometrial ablation 2018 History of loop electrical excision procedure (LEEP) 10/10/20 JUAN CARLOS II History of breast augmentation Previous section x 3 Family History Family History Sibling Family history of cardiovascular disease Mother Cerebrovascular accident Social History Social History Smoking status: Never smoker Second hand tobacco smoke exposure: No Alcohol intake: current Drinks per week: 2 Substance use: never Substance use type: does not use Lack of Transportation: No Lack of Food: Never True Current Housing: I Have Housing Concerned About Future Housing: No Difficulty Paying Gas/Electric Bills: No Difficulty Paying for Meds: No Currently Unemployed: No Education: Trade/Vocational Certificate Difficulty w/ Childcare or Family Care: No Living arrangements: alone Spiritual care concerns: No Exam 2 Const: General: healthy appearing Nutritional Appearance: well nourished Orientation/consciousness: patient oriented x3 Other: possibly jaundice on exam; sclera is white HENMT: Head: normal to inspection Ears: external ears normal F madhavi/Nose/Sinus: Normal external nose present Eyes: Conjunctivae: conjunctivae normal Pupils: Equal, round and reactive pupils present EOM: EOMs intact bilaterally Neck: Neck: normal visual inspection Chest: Chest palpation & inspection: normal inspection of the chest Resp: Effort & Inspection: normal respiratory effort, not labored, no retractions, not tachypneic and no use of accessory muscles Auscultation: c lear to auscultation bilaterally, no crackles, no rales, no rhonchi and no wheezes Cardio: Rate: regular rate Rhythm: regular rhythm Heart sounds: no murmurs GI: Inspection: distended GI Palp: Yes Soft to palpation, Yes Tenderness to palpation present (GI), No Guarding due to palpation present (GI), No Rigid due to palpation, No Hernia present, No Palpable mass present and No Rebound tenderness present Auscultation: normal bowel sounds Rectal Exam: normal sphincter tone and hemorrhoids Other: Brown stool and sent for guaiac (female studio set up worker Rose studio set up worker during entire exam) : General: Yes bladder normal to palpation Back/Spine/Pelvis: Back: no CVA tenderness Skin: General skin exam: normal color Rashes: no rashes Wounds: no wounds Other: questionable jaundice; await blood work Neuro: General: patient oriented x3, moves all extremities and no meningeal signs Cranial nerves: Yes Nystagmus not present Speech: normal speech G ait exam (Neuro): Normal gait present Extrem: General: normal to inspection Psych: Mental Status: mental status grossly normal Affect: normal affect Course Vital Signs Vital signs: Vital Signs Temperature 36.8 C 02/08/25 09:02 Pulse Rate 90 02/08/25 09:02 Respiratory Rate 16 02/08/25 09:02 Blood Pressure 112/80 02/08/25 09:02 Pulse Oximetry 100 02/08/25 09:02 Oxygen Delivery Room Air 02/08/25 09:02 Temperature 36.8 C 02/08/25 09:02 Pulse Rate 90 02/08/25 09:02 Respiratory Rate 16 02/08/25 09:02 Blood Pressure 112/80 02/08/25 09:02 Pulse Oximetry 100 02/08/25 09:02 Oxygen Delivery Room Air 02/08/25 09:02 MDM - Arrhythmia/Palpitations MDM Narrative Medical decision making narrative: patient is a 49-year-old female with some chest pain and shortness of breath with some lower extremity edema and abdominal fluid sensation for the past 2 months. We will do a cardiac pulmonary workup at this time. We will check with Gastroenterology at [facility] for possible transfer versus outpatient follow-up. it appears she is symptomatic GI bleed with anemia having the palpitations and chest pain etc.. Lab Data Attestation: I reviewed the patient's lab results. 02/08/25 10:01 02/08/25 10:01 Labs: Lab Results 08/02/2502/08/25 02/08/25 Range/Units 10:01 10:37 10:40 WBC 5.8 (4.8-10.8) K/mm3 RBC 2.56 L (4.20-5.40) M/mm3 Hgb 8.0 L (12.0-15.0) g/dL Hct 24.4 L (35.0-49.0) % MCV 95.3 (78.0-102.0) fL MCH 31.3 H (27.0-31.0) pg MCHC 32.8 (32-36) g/dL RDW 14.1 (11.6-14.4) % Plt Count 185 (150-420) K/mm3 MPV 9.5 (9.2-11.8) fl Immature Gran % (Auto) Not Reportable Neut % (Auto) Not Reportable Lymph % (Auto) Not Reportable [place] % (Auto) Not Reportable Eos % (Auto) Not Reportable Baso % (Auto) Not Reportable Lymph # (Auto) Not Reportable [place] # (Auto) Not Reportable Eos # (Auto) Not Reportable Baso # (Auto) Not Reportable Abs Immat Gran (auto) Not Reportable Absolute Neuts (auto) Not Reportable Absolute Nucleated RBC Not Reportable Total Counted 100 Neutrophils % (Manual) 54 (46-73) % Band Neutrophils % 0 (0-6) % Lymphocytes % (Manual) 24 (18-44) % Monocytes % (Manual) 4 (3-9) % Eosinophils % (Manual) 18 H (1-6) % Basophils % (Manual) 0 (0-1) % Nucleated RBC % Not Reportable Abs Neuts (Manual) 3.13 (1.3-6.7) K/mm3 Abs Lymphs (Manual) 1.39 (1.1-4.5) K/mm3 Abs Monocytes (Manual) 0.23 (0.1-0.90) K/mm3 Absolute Eos (Manual) 1.04 H (0.02-0.50) K/mm3 Abs Basophils (Manual) 0.00 (0-0.1) K/mm3 Platelet Estimate Adequate (Adequate) Schistocytes Not Reportable PT 9.8 (9.50-12.1) Seconds INR 0.9 APTT 23.4 L (23.9-30.70) Sec D-Dimer 0.20 (0.19-0.50) mg/L Sodium 137 (137-145) mmol/L Potassium 4.3 (3.4-5.0) mmol/L Chloride 107 (98-107) mmol/L Carbon Dioxide 30 (22-30) mmol/L Anion Gap 0 L (4-12) mmol/L BUN 14 (7-17) mg/dL Creatinine 0.87 (0.7-1.0) mg/dL Estim Creat Clear Calc 66 ml/min Estimated GFR > 60 (59 - ) Glucose 108 (65-110) mg/dL Calculated Osmolality 285 (285-295) mOsm/kg Lactic Acid 0.7 (0.4-2.0) mmol/L Calcium 8.5 (8.4-10.2) mg/dL Total Bilirubin 0.6 (0.2-1.3) mg/dL AST 23 (14-36) U/L ALT 15 (6-35) U/L Alkaline Phosphatase 29 L (38-126) U/L Troponin I < 0.012 (0.000-0.034) ng/mL NT-Pro-B Natriuret Pep 60 (19.9-100) pg/mL Total Protein 4.8 L (6.3-8.2) g/dL Albumin 2.9 L (3.5-5.1) g/dL Lipase 94 (23-300) U/L Urine Color Light yellow (Yellow) Urine Appearance Clear (Clear) Urine pH 7.5 (5.0-8.0) Ur Specific [place] 1.010 (1.010-1.020) Urine Protein Negative (Negative) Urine Glucose (UA) Negative (Negative) Urine Ketones Negative (Negative) Ur Blood (Man) Negative (Negative) Urine Nitrate Negative (Negative) Urine Bilirubin Negative (Negative) Urine Urobilinogen 0.2 (0.2-1.0) mg/dL Leukocyte Esterase Rfl Negative (Negative) EBER/UL Stool Occult Blood Positive A (Negative) Imaging Data Attestation: I personally reviewed and interpreted this imaging study as follows: Radiologist's impression: Chest x-rays negative for acute process ECG Data EKG #1: Attestation: I personally reviewed and interpreted this ECG as follows: ECG completion date: 02/08/25 ECG completion time: 09:57 EKG Interpretation: normal rate, sinus rhythm, no ectopy, non-specific ST changes, normal QRS, normal QT, NL axis and no acute changes Discharge Plan Discharge Clinical Impression: Anemia Qualifiers: Anemia type: other cause Other causes of anemia: other cause, not classified Q ualified Code(s): D64.89 - Other specified anemias Leukemia Qualifiers: Leukemia type: unspecified Leukemia Active/Remission status: in remission Q ualified Code(s): C95.91 - Leukemia, unspecified, in remission GI (gastrointestinal bleed) Qualifiers: GI bleed type/associated pathology: unspecified gastrointestinal hemorrhage type Qualified Code(s): K92.2 - Gastrointestinal hemorrhage, unspecified Patient Disposition: Home Condition: Stable Instructions: Gastrointestinal Bleeding (ED), Anemia (ED) Additional Instructions: Please follow-up with the primary doctor next week and have a hemoglobin level checked due to anemia. Further you have a follow-up with Dr. Porter/Kathryn on Tuesday02-11-25 at 11:30 a.m. and you may call the telephone number at [phone] and the address is [address] [place] [address] in [place] at [address]. Please follow-up your oncologist as soon as possible to review anemia as well. Come back to the emergency room with any worse symptoms. Hold your aspirin at this time. Patient Language: Belarusian Prescriptions: No Action Iclusig 30 mg tablet 15 mg PO DAILY aspirin 81 mg tablet 81 mg PO DAILY magnesium sulfate 100 mg capsule 100 mg PO BID Follow-up/Referrals: Josué Roman DO [Primary Care Provider] - Time of Disposition: 11:54
--- NOTE | 2025-02-08 09:15 | ECG_ITS ---
Test Date: 2025-02-08 09:24:56 Measurements Intervals [place] Rate: 82 P: 74 AL: 132 QRS: 84 QRSD: 77 T: 63 QT: 371 QTc: 435 Interpretive Statements SINUS RHYTHM NONSPECIFIC ST & T-WAVE ABNORMALITY- INFERIOR LEADS BORDERLINE ECG No previous ECG available for comparison Electronically Signed On 02-08-2025 09:32:48 CDT by Niall Hutchinson D.O.
--- OUTSIDE RECORDS SUMMARY | 2025-02-08 09:39 | XMS_ITS | Encounter Summary ---
Author Organization [facility] [employer] Address [address] [place] [address] Care Team Providers Care Senior Sql Server Dba Name Role Phone Max Frederick MD Primary Care Provider [phone] Encounter Details Date Type Department Care Team (Late st Contact Info) Description 10/28/2021 History & Physical [facility] Oncology and Hematology - Tim [address] [facility] [address] [phone] Max Frederick MD [address] [place] [address] Social History Tobacco Use Types [...] on filedocumented in this encounter Care Teams Senior Sql Server Dba Relationship Specialty Start Date End Date Max Frederick MD [address] [place] [address] PCP - General Family Practice 10/24/20 documented as of this encounter
--- OUTSIDE RECORDS SUMMARY | 2025-02-08 09:40 | XMS_ITS | Encounter Summary ---
Author Organization [facility] Address [address] [place] [address] Phone Care Team Providers Care Resistor Tester Name Role Phone Tyron Roca MD Unavailable [phone] Morgan Palacio MD Unavailable [phone] Itz Love MD Unavailable [phone] Karlos Lam MD Primary Care Provider [phone] Francis Cornell MD Primary Care Provider [phone] Francis Cornell MD Primary Care Provider [phone] Rosalie Rico NP Primary Care Provider [phone] Josué Roman DO Primary Care Provider Encounter [...] documented as of this encounter Care Teams Resistor Tester Relationship Specialty Start Date End Date Karlos Lam MD [address] [place] [address] PCP - General Family Medicine 01/22/21 11/10/22 Francis Cornell MD [address] [place] [address] PCP - General Family Medicine 11/11/22 05/01/23 Francis Cornell MD [address] [place] [address] PCP - General Family Medicine 05/02/23 09/27/23 Rosalie Rico NP [address] [address] PCP - General Family Medicine 09/28/23 01/13/25 Josué Roman DO [address] [place] [address] PCP - General Family Medicine 01/14/25 Tyron Roca MD Consulting Physician Medical Oncology 10/30/20 Morgan Palacio MD [address] [address] Referring Physician Hematology 11/11/20 09/27/23 Itz Love MD [address] [place] [address] Referring Physician Family Practice 11/11/20 09/27/23 documented as of this encounter
--- OUTSIDE RECORDS SUMMARY | 2025-02-08 09:40 | XMS_ITS | Continuity of Care Document ---
Author Organization [facility] Address [address] [place] [address] Phone Care Team Providers Care Custodian Blood Bank Name Role Phone Tony Arizmendi DO Unavailable Unavailable Procedures Procedure Date IMMUNIZATION ADMIN SARSCOV2 VAC 100MCG/0.5ML IM COMMUNITY SERVICE Advance Directives Directive Yes / No Effective Date File Name No Information Encounters Encounter Description Practice Location Reason(s) For Visit Diagnoses Date Provider Providers Copied on Encounter [facility], [address] [place], [address], tel:[phone] *[facility] Covid-19 Injection Only (chief complaint) Encounter for immunization Ugo Jimenez. [address] [place], [address], . tel:[phone] Family History Family Member Type Diagnosis Age At Onset No Information Immunizations Vaccine Date Status Comments COVID-19 administered Source: [facility] unization Record COVID-19 administered Source: Public Agency COVID-19 administered Source: Public Agency Payers Payer name Insurance type Covered libertarian ID Authoriza tion(s) No Information Social History [...]
--- OUTSIDE RECORDS SUMMARY | 2025-02-08 09:40 | XMS_ITS | Encounter Summary ---
Author Organization [facility] Address [address] [place] [address] Phone Care Team Providers Care Orderlies Teacher Name Role Phone Tyron Roca MD Unavailable [phone] Morgan Palacio MD Unavailable [phone] Itz Love MD Unavailable [phone] Karlos Lam MD Primary Care Provider [phone] Francis Cornell MD Primary Care Provider [phone] Francis Cornell MD Primary Care Provider [phone] Rosalie Rico NP Primary Care Provider Josué [...] documented as of this encounter Care Teams Orderlies Teacher Relationship Specialty Start Date End Date Karlos Lam MD [address] [place] [address] PCP - General Family Medicine 01/22/21 11/10/22 Francis Cornell MD [address] [place] [address] PCP - General Family Medicine 11/11/22 05/01/23 Francis Cornell MD [address] [place] [address] PCP - General Family Medicine 05/02/23 09/27/23 Rosalie Rico NP [address] [address] PCP - General Family Medicine 09/28/23 01/13/25 Josué Roman DO [address] [place] [address] PCP - General Family Medicine 01/14/25 Tyron Roca MD Consulting Physician Medical Oncology 10/30/20 Morgan Palacio MD [address] [address] Referring Physician Hematology 11/11/20 09/27/23 Itz Love MD [address] [place] [address] Referring Physician Family Practice 11/11/20 09/27/23 documented as of this encounter
--- OUTSIDE RECORDS SUMMARY | 2025-02-08 09:40 | XMS_ITS ---
Author Organization [facility] Address [address] [place] [address] Phone Care Team Providers Care Operations Support Manager Name Role Phone Tyron Roca MD Unavailable [phone] Josué Roman DO Primary Care Provider Active Problems Patient Care Coordination No te Formatting of this note is d ifferent from the original. 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 $0 copay. Picked up 10/30 and given to patient. Local Oncologist contact Local labs on 11/04 at [facility] Walk in/no appt needed Post-Discharge Follow-up 11/10 (lorraine Roca) Consult requested Televisit Consent Miscellaneous Notes: 10/28 BmBx today. Business Info Consultant c/s for bleeding. Von Willebrand factor pending. [...] daily Assessment & Plan (08/19/2021 9:17 AM BAND SPLICER): Patient reports that in general her mood [...] 10/27/2020 Assessment & Plan (08/19/2021 9:19 AM BAND SPLICER): Labs reviewed today; patient noted to be [...] and troponins -> if any concern for OR, will need urgent pheresis -Given splenomegaly and [...] desvenlafaxine 25 mg daily Patient to contact COSMETIC [employer]KER to reengage with counseling Assessment & Plan [...] supplement. Assessment & Plan (08/19/2021 9:19 AM BAND SPLICER): Patient continues to have anemia secondary to [...] (10/28/2020): Added automatically from request for surgery [id number] Assessment & Plan (10/30/2020 3:08 PM CDT): -2/2 recent LEEP in setting of platelet malfunction 2/2 ? Acquired Von Willebrand factor. 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
--- OUTSIDE RECORDS SUMMARY | 2025-02-08 09:40 | XMS_ITS | Clinical Summary ---
Author Organization [facility] Address [address] [place] [address] Phone Care Team Providers Care Jig Operator Name Role Phone Unavailable Primary Care Provider [...] 02/20/2025 9:40 AM CDT Office Visit [facility] On[facility] Services [address] [place] [id number] James Rojas MD [address] [place] [address] Discharge Disposition: Discharged to home or Selfcare [...] patient's age to complete this topic Insurance [facility] [place] BRANDI [id number]
--- OUTSIDE RECORDS SUMMARY | 2025-02-08 09:40 | XMS_ITS | Clinical Summary ---
Author Organization [facility] Address [address] [place] [address] Phone Care Team Providers Care Webbing Seamer Pound Net Name Role Phone Tyron Roca MD Unavailable [phone] Josué Roman DO Primary Care Provider [...] be Resolved Before Discharge Living Situation/Distance from [place], [place] (1 hr) Discharge To Home Caregiver Requests sent to Case Management and/or Medical Assistants Dasatinib to [facility]. $0 copay. Picked up 10/30 and given to patient. Local Oncologist contact Local labs on 11/04 at [facility] Walk in/no appt needed Post-Discharge Follow-up 11/10 (per Abelino) Consult requested Televisit Consent Miscellaneous Notes: 10/28 BmBx today. 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 Von Willebrand factor pending. [...] daily Assessment & Plan (08/19/2021 9:17 AM SPRING COILER HAND): Patient reports that in general her mood [...] 10/27/2020 Assessment & Plan (08/19/2021 9:19 AM SPRING COILER HAND): Labs reviewed today; patient noted to be [...] desvenlafaxine 25 mg daily Patient to contact [facility] to reengage with counseling Assessment & Plan [...] supplement. Assessment & Plan (08/19/2021 9:19 AM SPRING COILER HAND): Patient continues to have anemia secondary to [...] (10/28/2020): Added automatically from request for surgery [id number] Assessment & Plan (10/30/2020 3:08 PM CDT): -2/2 recent LEEP in setting of platelet malfunction 2/2 ? Acquired Von Willebrand factor. Von Willebrand factor activity wnl -correctional facility psychiatrist consulted and following -s/p vaginal packing 10/28 with significant soaking that prompted correctional facility psychiatrist to take pt to the OR and do EUA, cautery, and vaginal packing -voiding trail ongoing and successful thus far - no more bleeding Encounters Date Type Department Care Team Description 02/04/2025 Documentation [facility] [address] [place] [address] [address] [place] [address] Raysa Villagran RMA PRIOR AUTH/PAP ICLUSIG 02/04/2025 Documentation [facility] [address] [place] [address] Floor 6 [place] [address] Raysa Villagran RMA CASE CLOSURE ICLUSIG 01/14/2025 Telephone [facility] Gastroenterology [address] [place] [address] Advanced Medicine 12th [place] [address] [place] [id number] Thuy Arrieta 01/03/2025 Telephone [facility] Bone Marrow Transplant [address] [place] [address] Floor 6 [place] [address] Tyron Roca MD 01/01/2025 Orders Only [facility] Bone Marrow Transplant [address] [place] [address] Floor 6 [place] [address] Emla Su NP CML (chronic myelocytic leukemia) (HCC) (Primary Dx) 01/01/2025 Telephone [facility] Bone Marrow Transplant [address] [facility] Floor 6 [place] [address] Karen Lopez, RN 12/26/2024 Telephone [facility] Bone Marrow Trans[facility] 6 [place] [address] Karen Lopez, RN from Last [...] BREAST IMMEDI ATE / DELAYED W/ TISSUE MECHANIC WELDER CERVICAL BIOPSY W/ LOOP ELEC TRODE EXCISION [...] finding in either breast. us Kim Chaparro PERSONNEL CONSULTANT IMG MAMMO PROCEDURES Final Resul t * Colonoscopy (10/28/2023 3:15 PM CDT) Anatomical Region Laterality Modality Other Narrative Procedure Note Melva Lim MD - 10/28/2023 3:15 PM CDT [facility] ENDOSCOPY [facility] Patient Name: Angelique Yeboah Procedure Date: 10/28/2023 3:15 PM Date of : 1975 Admit Type: Outpatient Age: 48 Gender: Female Attending MD: Melva Lim M.D. Room: [facility] ENDOSCOPY ROOM 8 Note Status: Finalized [...] The scope was passed under direct vision.The [id number] endoscope was introduced through the anus and advanced to the terminal ileum. The colonoscopy was performed without difficulty. The quality of the bowel preparation was evaluatedusing the BBPS ([place] Bowel Preparation Scale) withscores of: Right Colon [...] Most Recently Relevant to Health Maintenance Insurance [facility] [id number] [place] [facility] Advance Directives For more information, please contact: [phone] * Full Code (Latest Code Status on File) Date Activated Date Inactivated Comments 10/28/2023 2:10 PM 10/28/2023 8:23 PM * Full Code Date Activated Date Inactivated Comments 10/27/2020 8:29 PM 10/30/2020 8:50 PM Care Teams Webbing Seamer Pound Net Relationship Specialty Start Date End Date Josué Roman DO [address] [place] [address] PCP - General Family Medicine 01/14/25 Tyron Roca MD Consulting Physician Medical Oncology 10/30/20
--- OUTSIDE RECORDS SUMMARY | 2025-02-08 09:40 | XMS_ITS | Encounter Summary ---
Author Organization [facility] Address [address] [place] [address] Phone Care Team Providers Care Shochet Name Role Phone Tyron Roca MD Unavailable [phone] Morgan Palacio MD Unavailable [phone] Itz Love MD Unavailable [phone] Karlos Lam MD Primary Care Provider [phone] Francis Cornell MD Primary Care Provider [phone] Francis Cornell MD Primary Care Provider [phone] Rosalie Rico NP Primary Care Provider [phone] Josué Roman DO Primary Care Provider Encounter [...] documented as of this encounter Care Teams Shochet Relationship Specialty Start Date End Date Karlos Lam MD [address] [place] [address] PCP - General Family Medicine 01/22/21 11/10/22 Francis Cornell MD [address] [place] [address] PCP - General Family Medicine 11/11/22 05/01/23 Francis Cornell MD [address] [place] [address] PCP - General Family Medicine 05/02/23 09/27/23 Rosalie Rico NP [address] [address] PCP - General Family Medicine 09/28/23 01/13/25 Josué Roman DO [address] [place] [address] PCP - General Family Medicine 01/14/25 Tyron Roca MD Consulting Physician Medical Oncology 10/30/20 Morgan Palacio MD [address] [address] Referring Physician Hematology 11/11/20 09/27/23 Itz Love MD [address] [place] [address] Referring Physician Family Practice 11/11/20 09/27/23 documented as of this encounter
--- OUTSIDE RECORDS SUMMARY | 2025-02-08 09:41 | XMS_ITS | Clinical Summary ---
Author Organization [facility] Natalya Ceballos Address [address] [place] [address] Care Team Providers Care Lens Maker Name Role Phone Max Frederick MD Primary Care Provider [phone] Allergies Active Allergy Reactions Criticality Noted Date [...] Activ e fluticasone propionate (FLONASE) 50 mcg/spray [place], Suspension nasal inhaler Administer 2 Sprays in [...] 24 Colorectal Cancer Screening 10/27/2033 Care Teams Lens Maker Relationship Specialty Start Date End Date Max Frederick MD [address] [place] [address] PCP - General Family Practice 10/24/20
[2025-02-08 10:08] LABS: Hematocrit 24.4 % (35.0-49.0); Hemoglobin 8.0 g/dL (12.0-15.0); Mean Corpuscular HGB Conc 32.8 g/dL (32-36); Mean Corpuscular Hemoglobin 31.3 pg (27.0-31.0); Mean Corpuscular Volume 95.3 fL (78.0-102.0); Platelet Count Result 185 K/mm3 (150-420); Red Blood Count 2.56 M/mm3 (4.20-5.40); White Blood Count 5.8 K/mm3 (4.8-10.8)
[2025-02-08 10:22] LABS: Alanine Aminotransferase 15 U/L (6-35); Albumin Level 2.9 g/dL (3.5-5.1); Alkaline Phosphatase 29 U/L (38-126); Anion Gap 0 mmol/L (4-12); Aspartate Amino Transferase 23 U/L (14-36); Band Neutrophils Percent 0 % (0-6); Basophils Absolute Manual 0.00 K/mm3 (0-0.1); Basophils Percent Manual 0 % (0-1); Bilirubin,Total 0.6 mg/dL (0.2-1.3); Blood Urea Nitrogen 14 mg/dL (7-17); Calcium 8.5 mg/dL (8.4-10.2); Carbon Dioxide 30 mmol/L (22-30); Chloride 107 mmol/L (98-107); Eosinophils Absolute Manual 1.04 K/mm3 (0.02-0.50); Eosinophils Percent Manual 18 % (1-6); Estimated CRCL calculation 66 ml/min; Estimated Glomerular Filt Rate > 60; Glucose 108 mg/dL (65-110); Lipase 94 U/L (23-300); Lymphocytes Absolute Manual 1.39 K/mm3 (1.1-4.5); Lymphocytes Percent Manual 24 % (18-44); Monocytes Absolute Manual 0.23 K/mm3 (0.1-0.90); Monocytes Percent Manual 4 % (3-9); Neutrophils Absolute Manual 3.13 K/mm3 (1.3-6.7); Neutrophils Percent Manual 54 % (46-73); Osmolality Calculated 285 mOsm/kg (285-295); Potassium 4.3 mmol/L (3.4-5.0); Sodium 137 mmol/L (137-145); Total Cells Counted 100; Total Protein 4.8 g/dL (6.3-8.2)
[2025-02-08 10:24] LABS: INR 0.9; Partial Thromboplastin Time 23.4 Sec (23.9-30.70); Prothrombin Time 9.8 Seconds (9.50-12.1)
[2025-02-08 10:34] LABS: NT Pro B Type Natriuretic Pept 60 pg/mL (19.9-100); Troponin I < 0.012 ng/mL (0.000-0.034)
[2025-02-08 10:44] LABS: Add Urine Microscopic? NO; Appearance Urine Clear (Clear); Glucose Urine UA Negative (Negative); Leukocyte Esterase Ur Negative LEU/UL (Negative); Nitrate Urine Negative (Negative); Specific Grav Ur 1.010 (1.010-1.020)
== END 2025-02-08 12:02 | disposition home or self-care (01) ==
PROVIDERS: Emergency Provider Emergency Medicine; PCP Family Medicine
DX: D64.89 Other specified anemias (principal); C95.91 Leukemia, unspecified, in remission; K92.2 Gastrointestinal hemorrhage, unspecified
CPT/HCPCS: 36415; 71046; 80053; 81003; 82272; 83605; 83690; 83880; 84484; 85025; 85380; 85610; 85730; 93005; 99284

== ENCOUNTER 2025-02-11 09:43 | Outpatient (CLI) | payer OTHER, SELFPAY ==
--- OUTSIDE RECORDS SUMMARY | 2025-02-11 09:48 | XMS_ITS | Encounter Summary ---
Author Organization [facility] Address [address] [place] [address] Phone Care Team Providers Care Quill Winder Name Role Phone Tyron Roca MD Unavailable [phone] Morgan Palacio MD Unavailable [phone] Itz Love MD Unavailable [phone] Karlos Lam MD Primary Care Provider [phone] Francis Cornell MD Primary Care Provider [phone] Francis Cornell MD Primary Care Provider [phone] Rosalie Rico NP Primary Care Provider Josué [...] documented as of this encounter Care Teams Quill Winder Relationship Specialty Start Date End Date Karlos Lam MD [address] [place] [address] PCP - General Family Medicine 01/22/21 11/10/22 Francis Cornell MD [address] [place] [address] PCP - General Family Medicine 11/11/22 05/01/23 Francis Cornell MD [address] [place] [address] PCP - General Family Medicine 05/02/23 09/27/23 Rosalie Rico NP [address] [address] PCP - General Family Medicine 09/28/23 01/13/25 Josué Roman DO [address] [place] [address] PCP - General Family Medicine 01/14/25 Tyron Roca MD Consulting Physician Medical Oncology 10/30/20 Morgan Palacio MD [address] [address] Referring Physician Hematology 11/11/20 09/27/23 Itz Love MD [address] [place] [address] Referring Physician Family Practice 11/11/20 09/27/23 documented as of this encounter
--- OUTSIDE RECORDS SUMMARY | 2025-02-11 09:48 | XMS_ITS | Encounter Summary ---
Author Organization [facility] [employer] Address [address] [place] [address] Care Team Providers Care Aircraft Ordnance Technician Name Role Phone Max Frederick MD Primary Care Provider [phone] Encounter Details Date Type Department Care Team (Late st Contact Info) Description 10/28/2021 History & Physical [facility] Oncology and Hematology - Tim [address] [facility] [address] [id number] Max Frederick MD [address] [place] [address] Social History Tobacco Use Types [...] on filedocumented in this encounter Care Teams Aircraft Ordnance Technician Relationship Specialty Start Date End Date Max Frederick MD [address] [place] [address] PCP - General Family Practice 10/24/20 documented as of this encounter
--- OUTSIDE RECORDS SUMMARY | 2025-02-11 09:48 | XMS_ITS | Encounter Summary ---
Author Organization [facility] Address [address] [place] [address] Phone Care Team Providers Care Manager Sign Name Role Phone Tyron Roca MD Unavailable [phone] Morgan Palacio MD Unavailable [phone] Itz Love MD Unavailable [phone] Karlos Lam MD Primary Care Provider [phone] Francis Cornell MD Primary Care Provider Francis Cornell MD Primary Care Provider [phone] Rosalie Rico NP Primary Care Provider [phone] Josué Roman DO Primary Care Provider Encounter [...] documented as of this encounter Care Teams Manager Sign Relationship Specialty Start Date End Date Karlos Lam MD [address] [place] [address] PCP - General Family Medicine 01/22/21 11/10/22 Francis Cornell MD [address] [place] [address] PCP - General Family Medicine 11/11/22 05/01/23 Francis Cornell MD [address] [place] [address] PCP - General Family Medicine 05/02/23 09/27/23 Rosalie Rico NP [address] [address] PCP - General Family Medicine 09/28/23 01/13/25 Joséu Roman DO [address] [place] [address] PCP - General Family Medicine 01/14/25 Tyron Roca MD Consulting Physician Medical Oncology 10/30/20 Morgan Palacio MD [address] [address] Referring Physician Hematology 11/11/20 09/27/23 Itz Love MD [address] [place] [address] Referring Physician Family Practice 11/11/20 09/27/23 documented as of this encounter
--- OUTSIDE RECORDS SUMMARY | 2025-02-11 09:48 | XMS_ITS | Clinical Summary ---
Author Organization [facility] Natalya Ceballos Address [address] [place] [address] Care Team Providers Care Department Helper Name Role Phone Max Frederick MD Primary Care Provider [phone] Allergies Active Allergy Reactions Criticality Noted Date [...] Activ e fluticasone propionate (FLONASE) 50 mcg/spray [place], Suspension nasal inhaler Administer 2 Sprays in [...] 24 Colorectal Cancer Screening 10/27/2033 Care Teams Department Helper Relationship Specialty Start Date End Date Max Frederick MD [address] [place] [address] PCP - General Family Practice 10/24/20
--- OUTSIDE RECORDS SUMMARY | 2025-02-11 09:48 | XMS_ITS | Encounter Summary ---
Author Organization [facility] Address [address] [place] [address] Phone Care Team Providers Care Perioperative Educator Name Role Phone Tyron Roca MD Unavailable [phone] Morgan Palacio MD Unavailable [phone] Itz Love MD Unavailable [phone] Karlos Lam MD Primary Care Provider [phone] Francis Cornell MD Primary Care Provider [phone] Francis Cornell MD Primary Care Provider [phone] Rosalie Rico NP Primary Care Provider [phone] Josué Roman DO Primary Care Provider Encounter [...] documented as of this encounter Care Teams Perioperative Educator Relationship Specialty Start Date End Date Karlos Lam MD [address] [place] [address] PCP - General Family Medicine 01/22/21 11/10/22 Francis Cornell MD [address] [place] [address] PCP - General Family Medicine 11/11/22 05/01/23 Francis Cornell MD [address] [place] [address] PCP - General Family Medicine 05/02/23 09/27/23 Rosalie Rico NP [address] [address] PCP - General Family Medicine 09/28/23 01/13/25 Josué Roman DO [address] [place] [address] PCP - General Family Medicine 01/14/25 Tyron Roca MD Consulting Physician Medical Oncology 10/30/20 Morgan Palacio MD [address] [address] Referring Physician Hematology 11/11/20 09/27/23 Itz Love MD [address] [place] [address] Referring Physician Family Practice 11/11/20 09/27/23 documented as of this encounter
--- OUTSIDE RECORDS SUMMARY | 2025-02-11 09:48 | XMS_ITS ---
Author Organization [facility] Address [address] [place] [address] Phone Care Team Providers Care Industrial Radiographer Name Role Phone Tyron Roca MD Unavailable [phone] Josué Roman DO Primary Care Provider Active Problems Patient Care Coordination No te Formatting of this note is d ifferent from the original. 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 $0 copay. Picked up 10/30 and given to patient. Local Oncologist contact Local labs on 11/04 at [facility] Walk in/no appt needed Post-Discharge Follow-up 11/10 (lorraine Roca) Consult requested Televisit Consent Miscellaneous Notes: 10/28 BmBx today. 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 Von Willebrand factor pending. [...] daily Assessment & Plan (08/19/2021 9:17 AM SLIP FILLER): Patient reports that in general her mood [...] 10/27/2020 Assessment & Plan (08/19/2021 9:19 AM SLIP FILLER): Labs reviewed today; patient noted to be [...] and troponins -> if any concern for [place], will need urgent pheresis -Given splenomegaly and [...] desvenlafaxine 25 mg daily Patient to contact [facility] to reengage with counseling Assessment & Plan [...] supplement. Assessment & Plan (08/19/2021 9:19 AM SLIP FILLER): Patient continues to have anemia secondary to [...] (10/28/2020): Added automatically from request for surgery [id number] Assessment & Plan (10/30/2020 3:08 PM CDT): -2/2 recent LEEP in setting of platelet malfunction 2/2 ? Acquired Von Willebrand factor. 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
--- OUTSIDE RECORDS SUMMARY | 2025-02-11 09:48 | XMS_ITS | Clinical Summary ---
Author Organization [facility] Address [address] [place] [address] Phone Care Team Providers Care Ripsaw Grader Name Role Phone Unavailable Primary Care Provider [...] 02/20/2025 9:40 AM CDT Office Visit [facility] Oncology Services [address] [place] [id number] James Rojas MD [address] [place] [address] Discharge Disposition: Discharged to home or Selfcare [...] patient's age to complete this topic Insurance [facility] [place] BRANDI [id number]
--- OUTSIDE RECORDS SUMMARY | 2025-02-11 09:48 | XMS_ITS | Continuity of Care Document ---
Author Organization [facility] Address [address] [place] [address] Phone Care Team Providers Care Charge Machine Operator Name Role Phone Tony Arizmendi DO Unavailable Unavailable Procedures Procedure Date IMMUNIZATION ADMIN SARSCOV2 VAC 100MCG/0.5ML IM COMMUNITY SERVICE Advance Directives Directive Yes / No Effective Date File Name No Information Encounters Encounter Description Practice Location Reason(s) For Visit Diagnoses Date Provider Providers Copied on Encounter [facility], [address] [place], [address], tel:[phone] *[facility] Primary Care Covid-19 Injection Only (chief complaint) Encounter for immunization Ugo Jimenez. [address] [place], [address], . tel:[phone] Family History Family Member Type Diagnosis Age At Onset No Information Immunizations Vaccine Date Status Comments COVID-19 administered Source: [facility] unization Record COVID-19 administered Source: Public [...]
--- OUTSIDE RECORDS SUMMARY | 2025-02-11 09:48 | XMS_ITS | Clinical Summary ---
Author Organization [facility] Address [address] [place] [address] Phone Care Team Providers Care Tool And Die Supervisor Name Role Phone Tyron Roca MD Unavailable [phone] Josué Roman DO Primary Care Provider [...] be Resolved Before Discharge Living Situation/Distance from [place], [place] (1 hr) Discharge To Home Caregiver Requests sent to Case Management and/or Medical Assistants Dasatinib to [facility]. $0 copay. Picked up 10/30 and given to patient. Local Oncologist contact Local labs on 11/04 at [facility] Walk in/no appt needed Post-Discharge Follow-up 11/10 (per Abelino) Consult requested Televisit Consent Miscellaneous Notes: 10/28 BmBx today. Painter Rough c/s for bleeding. Von Willebrand factor pending. [...] daily Assessment & Plan (08/19/2021 9:17 AM BILLING AND QUALITY TECHNICIAN): Patient reports that in general her mood [...] 10/27/2020 Assessment & Plan (08/19/2021 9:19 AM BILLING AND QUALITY TECHNICIAN): Labs reviewed today; patient noted to be [...] and troponins -> if any concern for [place], will need urgent pheresis -Given splenomegaly and [...] supplement. Assessment & Plan (08/19/2021 9:19 AM BILLING AND QUALITY TECHNICIAN): Patient continues to have anemia secondary to [...] (10/28/2020): Added automatically from request for surgery [id number] Assessment & Plan (10/30/2020 3:08 PM CDT): -2/2 recent LEEP in setting of platelet malfunction 2/2 ? Acquired Von Willebrand factor. Von Willebrand factor activity wnl -transportation mechanic consulted and following -s/p vaginal packing 10/28 with significant soaking that prompted transportation mechanic to take pt to the OR and do EUA, cautery, and vaginal packing -voiding trail ongoing and successful thus far - no more bleeding Encounters Date Type Department Care Team Description 02/04/2025 Documentation [facility] Infusion Pharmacy [address] [place] [address] [address] [place] [address] Raysa Villagran RMA PRIOR AUTH/PAP ICLUSIG 02/04/2025 Documentation [facility]fusion [facility] [address] [place] [address] Floor [address] [place] [address] Raysa Villagran RMA CASE CLOSURE ICLUSIG 01/14/2025 Telephone [facility] Gastroenterology [address] [place] [address] Advanced Medicine 12th [place] [address] [place] [address] Thuy Arrieta 01/03/2025 Telephone [facility] Bone Marrow Transplant [address] [place] [address] Floor [address] [place] [address] Tyron Roca MD 01/01/2025 Orders Only [facility] Bone Marrow Transplant [address] [place] [address] Floor [address] [place] [address] Elma Su NP CML (chronic myelocytic leukemia) (HCC) (Primary Dx) 01/01/2025 Telephone [facility] Bone Marrow Transplant [address] [facility] Floor [address] [place] [address] Karen Lopez, RN 12/26/2024 Telephone [facility] Bone Marrow Transplant [facility] [address] [place] [address] Karen Lopez, RN from Last [...] BREAST IMMEDI ATE / DELAYED W/ TISSUE SLAT BASKET MAKER MACHINE CERVICAL BIOPSY W/ LOOP ELEC TRODE EXCISION [...] finding in either breast. us Kim Chaparro COAL SHOOTER IMG MAMMO PROCEDURES Final Resul t * Colonoscopy (10/28/2023 3:15 PM CDT) Anatomical Region Laterality Modality Other Narrative Procedure Note Melva Lim MD - 10/28/2023 3:15 PM CDT GI ENDOSCOPY [facility] Patient Name: Angelique Yeboah Procedure Date: 10/28/2023 3:15 PM Date of : 1975 Admit Type: Outpatient Age: 48 Gender: Female Attending MD: Melva Lim M.D. Room: [facility] ENDOSCOPY ROOM 8 Note Status: [...] The scope was passed under direct vision.The [id number] endoscope was introduced through the anus and advanced to the terminal ileum. The colonoscopy was performed without difficulty. The quality of the bowel preparation was evaluatedusing the BBPS ([place] Bowel Preparation Scale) withscores of: Right Colon [...] Most Recently Relevant to Health Maintenance Insurance [facility] [id number] [place] [facility] ACCESS CHOICE Advance Directives For more information, please contact: [phone] * Full Code (Latest Code Status on File) Date Activated Date Inactivated Comments 10/28/2023 2:10 PM 10/28/2023 8:23 PM * Full Code Date Activated Date Inactivated Comments 10/27/2020 8:29 PM 10/30/2020 8:50 PM Care Teams Tool And Die Supervisor Relationship Specialty Start Date End Date Josué Roman DO [address] [place] [address] PCP - General Family Medicine 01/14/25 Tyron Roca MD Consulting Physician Medical Oncology 10/30/20
[2025-02-11 10:00] LABS: Hematocrit 23.2 % (35.0-49.0); Hemoglobin 7.5 g/dL (12.0-15.0); Mean Corpuscular HGB Conc 32.3 g/dL (32-36); Mean Corpuscular Hemoglobin 30.7 pg (27.0-31.0); Mean Corpuscular Volume 95.1 fL (78.0-102.0); Platelet Count Result 163 K/mm3 (150-420); Red Blood Count 2.44 M/mm3 (4.20-5.40); White Blood Count 3.3 K/mm3 (4.8-10.8)
[2025-02-11 10:16] LABS: Iron 22 ug/dL (37-170)
[2025-02-11 10:24] LABS: Band Neutrophils Percent 0 % (0-6); Eosinophils Absolute Manual 0.42 K/mm3 (0.02-0.50); Eosinophils Percent Manual 13 % (1-6); Lymphocytes Absolute Manual 1.18 K/mm3 (1.1-4.5); Lymphocytes Percent Manual 36 % (18-44); Monocytes Absolute Manual 0.19 K/mm3 (0.1-0.90); Monocytes Percent Manual 6 % (3-9); Neutrophils Absolute Manual 1.48 K/mm3 (1.3-6.7); Neutrophils Percent Manual 45 % (46-73); Total Cells Counted 100
[2025-02-11 10:26] LABS: Percent Iron Saturation 7 % (20-50)
[2025-02-11 10:52] LABS: Ferritin 5.93 ng/mL (6.24-137)
== END 2025-02-11 09:44 | disposition home or self-care (01) ==
PROVIDERS: PCP Nurse Practitioner Family; Visit Provider Nurse Practitioner Family
DX: D64.9 Anemia, unspecified (principal)
CPT/HCPCS: 36415; 82728; 83540; 83550; 85025